=== PATIENT | male | born 1940 | race Caucasian/White ===

== ENCOUNTER → 2017-12-15 10:56 | Outpatient (CLI) | payer MEDICARE, OTHER, SELFPAY ==
--- NOTE | 2017-12-15 09:55 | DI.REPORT_ITS ---
SYMPTOM/DIAGNOSIS: CHEST PAIN R07.9, CHF I 50.9 PA AND LATERAL CHEST: Comparison is made with 20 Feb 2010. The heart is grossly enlarged , unchanged. Sternal wires are present. There is bilateral pleural thickening vs pleural fat. No infiltrate, effusion or pulmonary edema is seen. IMPRESSION: Cardiomegaly. No acute abnormality
== END ==
PROVIDERS: PCP Family Medicine
DX: I50.9 Heart failure, unspecified (principal); R07.9 Chest pain, unspecified; I51.7 Cardiomegaly
CPT/HCPCS: 71046

== ENCOUNTER 2018-09-25 02:04 | Outpatient (CLI) | payer MEDICARE, OTHER, SELFPAY ==
[2018-09-25 12:44] LABS: Hemoglobin A1C 6.6 % (4.5-6.2)
[2018-09-25 14:55] LABS: ALT 24 U/L (12-78); AST 21 U/L (15-37); Albumin 3.6 g/dL (3.4-5.0); Alkaline Phosphatase 57 U/L (46-116); Anion Gap 12.2 mmol/L (3-11); BUN 20 mg/dL (7-18); Bilirubin, Total 0.6 mg/dL (0.2-1.0); CO2 23.8 mmol/L (21.0-32.0); CREATININE 1.36 mg/dL (0.70-1.30); Calcium 8.8 mg/dL (8.5-10.1); Chloride 103 mmol/L (98-107); Estimated GFR 50.81 (mL/min/1.73m2); Glucose 136 mg/dL (70-100); Potassium 4.7 mmol/L (3.5-5.1); Sodium 139 mmol/L (136-145); TSH (W/Ref FT4) 4.64 uIU/mL (0.358-3.74); Total Protein 6.9 g/dL (6.4-8.2)
[2018-09-25 15:14] LABS: FREE T4 1.03 ng/dL (0.76-1.46)
== END 2018-09-25 02:24 ==
PROVIDERS: PCP Family Medicine; Visit Provider Family Medicine
DX: E03.9 Hypothyroidism, unspecified (principal); I10 Essential (primary) hypertension; I25.10 Atherosclerotic heart disease of native coronary artery without angina pectoris; I50.9 Heart failure, unspecified; R73.09 Other abnormal glucose
CPT/HCPCS: 36415; 80053; 83036; 84439; 84443

== ENCOUNTER 2018-10-06 09:41 | Emergency (ER) | payer MEDICARE, OTHER, SELFPAY ==
--- NOTE | 2018-10-06 09:45 | NUR.NOTE ---
at approximately 0800 pt developed 10/10 back spasm in the lumbar region. pt denies any other problems
[2018-10-06 09:48] VITALS: BP 145/71; PULSE 71; RESP 16; TEMP 36.8; O2SAT 94
--- NOTE | 2018-10-06 09:57 | NUR.NOTE ---
Nursing Note: pt given 100 fentinal and 1mg Ativan by EMS prior to arrival
--- NOTE | 2018-10-06 10:10 | W.ED.GENAD ---
Discharge Plan Disposition Patient Disposition: HOME Condition: Improving Discharge Details Chief Complaint: Nk/Back Pain Clinical Impression: Back spasm, Acute exacerbation of chronic low back pain Primary Care Provider: Jazzmine Rodas ED Provider: Devorah Mathis Home Meds and New Rx's Prescriptions: New prednisone 20 mg tablet See Rx Instructions .ROUTE .COMPLEX Qty: 12 RF: 0 methocarbamol 750 mg tablet 750 mg PO QID PRN (Reason: muscle spasm) Qty: 10 RF: 0 hydrocodone-acetaminophen 5-325 mg tablet 1 tab PO Q6H PRN (Reason: pain) Qty: 7 RF: 0 Continued citalopram 40 mg tablet 40 mg PO DAILY RF: 0 omeprazole 40 mg capsule,delayed release(DR/EC) 40 mg PO DAILY Qty: 1 RF: 0 sildenafil 100 mg tablet 100 mg PO PRN RF: 0 furosemide 20 mg tablet 20 mg PO DAILY RF: 0 rosuvastatin 20 mg tablet 20 mg PO DAILY RF: 0 potassium chloride 20 mEq tablet extended release 20 meq PO DAILY RF: 0 hydrocodone-acetaminophen 10-325 mg tablet 1 tab PO TID PRN (Reason: pain) Qty: 15 RF: 0 bupropion HCl [Wellbutrin XL] 150 mg tablet extended release 24 hr 150 mg PO QAM Qty: 90 RF: 3 levothyroxine 150 mcg capsule 150 mcg PO DAILY Qty: 90 RF: 3 losartan 50 MG tablet 50 mg PO DAILY Qty: 90 RF: 4 nitroglycerin 0.4 MG tablet, sublingual 0.4 mg Sublingual PRN RF: 0 metoprolol succinate 25 MG tablet extended release 24 hr 25 mg PO DAILY Qty: 90 RF: 4 albuterol sulfate [ProAir HFA] 90 mcg/actuation HFA aerosol inhaler 1 - 2 puff Inhalation BID Qty: 18 RF: 6 aspirin 325 MG tablet 325 mg PO DAILY RF: 0 Discharge Instructions Instructions: Low Back Strain (ED) Additional Instructions: Continue ibuprofen 600 mg every 6 hours as needed and directed for pain. Take the steroids until finished. Take the muscle relaxer methocarbamol as needed and directed for muscle spasm. Take the Vicodin as needed and directed for pain not relieved with the ibuprofen or muscle relaxer. Be cautious when taking additional Tylenol as the Vicodin contains Tylenol. Do not take more than 3000 mg of Tylenol daily. Follow-up with your primary care doctor this week for reevaluation. Return immediately to the emergency department if you develop any worsening or new concerning symptoms. Stand Alone Forms: Physical Therapy Referral Discharge Data Discharge Physician: Devorah Mathis Medical Decision Making 78-year-old male with a history of chronic back pain and lumbar spine discectomy who presents with lower back pain and back spasms for the past 3 weeks, worse this morning. Given fentanyl and Ativan per EMS with minimal relief. No cauda equina symptoms. Vitals within normal limits. Patient appears nontoxic. Denies complaint of tearing chest or abdominal pain so not consistent with dissection. He has a history of chronic back pain and states this feels similar to his chronic back spasms that this appears muscular skeletal. No focal deficits. Abdomen soft and nontender. No pulsatile masses. Neurovascularly intact. Patient noted to have smell strong of urine but states he got some urine on his underwear earlier but denies any incontinence - will send UA. Will give a dose of Toradol IM, Valium p.o., and prednisone p.o. and reassess. 1120 --patient feels much better and is requesting to go home. Urinalysis negative for infection. Patient able to ambulate in the room. Family at bedside and will be taking him home. We will send home with a prescription for steroids, methocarbamol. We will also send home with a small prescription for Vicodin. Instructed to continue to take Motrin as needed and directed. Instructed to be cautious of taking additional Tylenol while taking the vicodin. Patient also requested a referral for physical therapy. Instructed to follow-up with primary care doctor this week for reevaluation and to return here at any time if worse per Medical Records Medical records reviewed: Yes I reviewed the patient's medical records. Lab Data Lab results reviewed: Yes I reviewed the patient's lab results. Laboratory Tests Range/Units 10/06/18 10:52 Urine Color (Yellow) Yellow Urine Clarity Clear Urine pH (5-8) 6.0 Ur Specific [place] (1.005-1.025) 1.025 Urine Protein (Negative) mg/dL Negative Urine Ketones (Negative) mg/dL Negative Urine Blood (Negative) Negative Urine Nitrite (Negative) Negative Urine Bilirubin (Negative) Negative Urine Urobilinogen (Up TO 0.2) EU/dL 4.0 H Ur Leukocyte Esterase (Negative) Negative Urine Glucose (Negative) mg/dL Negative HPI General Mode of arrival: EMS. Date/Time Provider Initiated Documentation: 10/06/18 10:01. Limitations to Documentation: no limitations. Information obtained by: patient and family. HPI Narrative: Patient is a 78-year-old male with a history of chronic back pain and history of lumbar spine discectomy who presents with lower back pain for the past few weeks. Patient denies any known injury. He states today he was walking in his kitchen when he suddenly felt a spasm in his lower back. He admits to pain with ambulation and any movement and states he has intermittent spasms. He takes Vicodin at home chronically as needed for back pain. Last dose of Vicodin or ibuprofen yesterday. He has not taken any medications at this morning. He was given fentanyl and Ativan per EMS. Patient admits to some relief but states his back spasm is still 10/10 at times. He denies any known fever, nausea, vomiting, bowel or bladder incontinence, chest pain, shortness of breath, abdominal pain, leg pain or weakness. Related Data Home Medications Medication Instructions Recorded Confirmed losartan 50 mg PO DAILY #90 tab-cap 11/18/12 10/06/18 metoprolol succinate 25 mg PO DAILY #90 tab-cap 11/18/12 10/06/18 nitroglycerin 0.4 mg SUBLINGUAL PRN 11/18/12 10/06/18 aspirin 325 mg PO DAILY 10/31/15 10/06/18 citalopram 40 mg tablet 40 mg PO DAILY tab 12/31/17 10/06/18 furosemide 20 mg tablet 20 mg PO DAILY 12/31/17 10/06/18 hydrocodone 10 mg-acetaminophen 1 tab PO TID PRN #15 tab 12/31/17 10/06/18 325 mg tablet omeprazole 40 mg capsule,delayed 40 mg PO DAILY #1 cap 12/31/17 10/06/18 release potassium chloride ER 20 mEq 20 meq PO DAILY 12/31/17 10/06/18 tablet,extended release rosuvastatin 20 mg tablet 20 mg PO DAILY 12/31/17 10/06/18 sildenafil 100 mg tablet 100 mg PO PRN tab 12/31/17 10/06/18 albuterol sulfate HFA 90 1 - 2 puff INHALATION BID #18 gm 01/16/18 10/06/18 mcg/actuation aerosol inhaler bupropion HCl XL 150 mg 24 hr 150 mg PO QAM #90 tab 09/28/18 10/06/18 tablet, extended release levothyroxine 150 mcg capsule 150 mcg PO DAILY #90 cap 09/28/18 10/06/18 hydrocodone-acetaminophen 1 tab PO Q6H PRN #7 tab 10/06/18 methocarbamol 750 mg PO QID PRN #10 tab 10/06/18 prednisone See Rx Instructions .ROUTE 10/06/18 .COMPLEX #12 tab Previous Rx's Medication Instructions Recorded hydrocodone 10 mg-acetaminophen 1 tab PO TID PRN #15 tab 12/31/17 325 mg tablet omeprazole 40 mg capsule,delayed 40 mg PO DAILY #1 cap 12/31/17 release albuterol sulfate HFA 90 1 - 2 puff INHALATION BID #18 gm 01/16/18 mcg/actuation aerosol inhaler bupropion HCl XL 150 mg 24 hr 150 mg PO QAM #90 tab 09/28/18 tablet, extended release levothyroxine 150 mcg capsule 150 mcg PO DAILY #90 cap 09/28/18 hydrocodone-acetaminophen 1 tab PO Q6H PRN #7 tab 10/06/18 methocarbamol 750 mg PO QID PRN #10 tab 10/06/18 prednisone See Rx Instructions .ROUTE 10/06/18 .COMPLEX #12 tab Allergies Allergy/AdvReac Type Severity Reaction Status Date / Time Heparin Analogues Allergy Mild RASH, Verified 09/28/18 09:32 SWELLING, ITCH morphine AdvReac Severe Nausea Verified 09/28/18 09:32 codeine AdvReac Mild GI Verified 09/28/18 09:32 atorvastatin calcium AdvReac Pancreatiti Verified 09/28/18 09:32 [From Lipitor] s niacin AdvReac Pancreatiti Verified 09/28/18 09:32 [From Niaspan s Extended-Release] General Stated Complaint: Nk/Back Pain RIGOBERTO: 3 Review of Systems Review of Systems All systems reviewed & are unremarkable except as noted in HPI and below Constitutional Reports as per HPI, Denies chills and Denies fever(s) Eyes Denies blurry vision ENT Denies dizziness, Denies sore throat and Denies throat swelling Cardiovascular Denies chest pain and Denies dyspnea Respiratory Denies cough and Denies dyspnea Gastrointestinal Denies abdominal pain, Denies diarrhea and Denies vomiting Genitourinary Denies hematuria and Denies dysuria Musculoskeletal Reports back pain and Denies numbness Integumentary/Breasts Denies lesions and Denies rash Neurologic Denies dizziness, Denies focal weakness and Denies numbness Allergic/Immunologic Denies throat swelling [facility] Medical History Stress at home (Acute) Spinal stenosis (Chronic 10/04/13) Sleep apnea (Chronic) Memory changes (Acute 12/15/17) Hypothyroidism (acquired) (Chronic) Hypertension (Chronic) Hyperlipidemia (Acute) CHF (congestive heart failure) (Acute) ASHD (arteriosclerotic heart disease) (Acute) Surgical History foot surgery heart bypass spurs stint Family History Mother Stroke Father Heart disease Brother No problems noted. Social History Smoking/Tobacco Use Status: Former Tobacco Use Quit Date: 04/28/83 Alcohol Intake: never Drug use: Never Substance use type: does not use Frequency: 3-4 times per week Seatbelt use: always Do you feel safe at home: Yes Do you feel safe in your relationship?: Yes Exam Const General: cooperative and acute distress moderate (in pain with back spasms) HENMT Head: normal to inspection Face and sinus: normal facial exam Eyes General: appearance normal, both eyes and all related structures EOM: EOM intact bilaterally Neck Neck: normal visual inspection and No submandibular swelling Lymphatic: no lymphadenopathy noted Chest Chest: normal inspection of the chest and no tenderness Resp Effort & Inspection: normal respiratory effort and able to speak in complete sentences Auscultation: clear to auscultation bilaterally Cardio Rate: regular rate Rhythm: regular rhythm GI Inspection: normal to inspection Palpation: soft, not firm, not rigid and nontender Auscultation: normal bowel sounds Male General Exam: Yes normal external exam Penis: normal penis Scrotum: scrotum normal Testes: normal, no testicular swelling and no testicular tenderness Back/Spine/Pelvis Thoracic/Lumbar Spine: thoracic and lumbar spine normal to inspection, surgical scar(s) present (midline upper lumbar region, no infection/trauma), straight leg raise negative bilaterally, No paraspinal tenderness, No thoracic spinal tenderness and No lumbar spinal tenderness Pelvis: no pain with anterior-posterior compression Skin General skin exam: no rashes or lesions noted Neuro General: alert, awake and oriented x3 Cognition: normal cognition Speech: speech normal Motor: muscle tone normal throughout and strength 5/5 throughout Sensory Exam: no sensory deficits noted Other: B/L patella/achilles hypoactive. Negative babinski b/l. Extrem General: normal to inspection, full ROM, normal capillary refill, no calf tenderness bilaterally and no edema Psych Appearance: grossly normal Mental Status: mental status grossly normal Speech and Movement: speech and movement normal Affect: normal affect Course Vital Signs Temperature 98.2 F 10/06/18 09:48 Pulse 71 10/06/18 09:48 Respiratory Rate 16 10/06/18 09:48 Blood Pressure 145/71 H 10/06/18 09:48 Pulse Oximetry 94 L 10/06/18 09:48 Temperature 98.2 F 10/06/18 09:48 Temperature Source Skin 10/06/18 09:48 Pulse 71 10/06/18 09:48 Respiratory Rate 16 10/06/18 09:48 Respiratory Effort 10/06/18 09:54 Blood Pressure 145/71 H 10/06/18 09:48 Blood Pressure Position Sitting 10/06/18 09:48 Pulse Oximetry 94 L 10/06/18 09:48 Oxygen Delivery Method Room Air 10/06/18 09:48 Oxygen Flow Rate 0 10/06/18 09:48 Pain Level 10 10/06/18 09:48
[2018-10-06] MEDS: diazePAM 5 MG TAB PO (10:42)
[2018-10-06] MEDS: Ketorolac 30 MG/ML VIAL IVP (10:43)
[2018-10-06] MEDS: predniSONE 20 MG TAB 60 MG PO (10:46)
[2018-10-06 11:01] LABS: Bilirubin Negative (Negative); Blood Negative (Negative); Clarity Clear; Glucose Negative (Negative); Ketones Negative (Negative); Leukocyte Esterase Negative (Negative); Nitrite Negative (Negative); Specific Gravity 1.025 (1.005-1.025)
[2018-10-06 14:22] VITALS: BP 145/71; PULSE 71; RESP 16; TEMP 36.8; O2SAT 94
== END 2018-10-06 11:50 | disposition home or self-care (01) ==
PROVIDERS: Emergency Provider Physician Assistant; PCP Family Medicine
DX: M62.830 Muscle spasm of back (principal); M54.5 Low back pain; G89.29 Other chronic pain; I50.9 Heart failure, unspecified; Z95.1 Presence of aortocoronary bypass graft; I11.0 Hypertensive heart disease with heart failure
CPT/HCPCS: 96372; 99284; 81003; J7512

== ENCOUNTER → 2018-10-07 09:27 | Outpatient (BNVA) | payer MEDICARE, OTHER, SELFPAY | PROVIDERS: PCP Family Medicine; Referring Provider Family Medicine; Visit Provider Orthopaedic Surgery | DX: M67.441 Ganglion, right hand (principal); M79.641 Pain in right hand; I11.0 Hypertensive heart disease with heart failure; I50.9 Heart failure, unspecified | CPT/HCPCS: 99202; 99213 ==

== ENCOUNTER 2018-10-12 08:14 | Day surgery (SDC) | payer MEDICARE, OTHER, SELFPAY ==
[2018-10-12 08:34] VITALS: BP 160/99; PULSE 78; RESP 18; TEMP 36.6; O2SAT 94
[2018-10-12] MEDS: Lidocaine 2% Multi-Dose 50 ML VIAL (10:55)
--- NOTE | 2018-10-12 11:19 | W.PM.DSUDISC ---
Discharge Plan Disposition Patient Disposition: HOME Condition: Good Discharge Details Reason For Visit: Excision cyst R palm Attending Provider: Carl Gomez Primary Care Provider: Jazzmine Rodas Home Meds and New Rx's Prescriptions: New ibuprofen 800 mg tablet 800 mg PO QID PRN (Reason: pain) Qty: 20 RF: 0 Continued hydrocodone-acetaminophen 10-325 mg tablet 1 tab PO TID MDD 20mg PRN (Reason: pain) Qty: 15 RF: 0 methocarbamol 750 mg tablet 750 mg PO QID PRN (Reason: muscle spasm) Qty: 20 RF: 1 citalopram 40 mg tablet 40 mg PO DAILY RF: 0 omeprazole 40 mg capsule,delayed release(DR/EC) 40 mg PO DAILY Qty: 1 RF: 0 sildenafil 100 mg tablet 100 mg PO PRN RF: 0 furosemide 20 mg tablet 20 mg PO DAILY RF: 0 rosuvastatin 20 mg tablet 20 mg PO DAILY RF: 0 potassium chloride 20 mEq tablet extended release 20 meq PO DAILY RF: 0 bupropion HCl [Wellbutrin XL] 150 mg tablet extended release 24 hr 150 mg PO QAM Qty: 90 RF: 3 levothyroxine 150 mcg capsule 150 mcg PO DAILY Qty: 90 RF: 3 losartan 50 MG tablet 50 mg PO DAILY Qty: 90 RF: 4 nitroglycerin 0.4 MG tablet, sublingual 0.4 mg Sublingual PRN RF: 0 metoprolol succinate 25 MG tablet extended release 24 hr 25 mg PO DAILY Qty: 90 RF: 4 albuterol sulfate [ProAir HFA] 90 mcg/actuation HFA aerosol inhaler 1 - 2 puff Inhalation BID Qty: 18 RF: 6 aspirin 325 MG tablet 325 mg PO DAILY RF: 0 prednisone 20 mg tablet See Rx Instructions .ROUTE .COMPLEX Qty: 12 RF: 0 Discharge Instructions Additional Instructions: Bend and straighten fingers R hand 10 times/hour when awake to limit swelling and pain. Take ibuprofen 800 mg every 6 hours, if needed for pain. Keep dressings clean and dry for 48 hours. After 48 hours, may remove dressings, shower or bathe, and get incision wet. Leave incision uncovered when it is dry and sealed. Use R hand as much as your discomfort allows. Follow up with in 10-14 days. Activity:: Activity as Tolerated Remove Dressings/Wound Care:: 48 hours Shower/Bathe:: 48 hours Diet:: As Tolerated Discharge Orders Discharge Orders: Discharge Order (Routine); Ordered 10/12/18 Ordered By: Carl Gomez DS: Diagnosis Discharge Diagnosis (1) Cyst in hand: Status: Acute
--- NOTE | 2018-10-13 09:51 | ROE_ITS ---
DATE OF PROCEDURE: October 12, 2018 PREOPERATIVE DIAGNOSIS: Ganglion cyst, right hand, arising from the flexor sheath of the little fing er. POSTOPERATIVE DIAGNOSIS: Same. PROCEDURE: Excision of ganglion cyst arising from the flexor sheath of the right little finger. ANESTHESIA: Local infiltration, 2% Xylocaine solution and 0.5% Marcaine with an epinephrine solution . SURGEON: Carl Gomez M.D. INDICATIONS: This is a 78-year-old white male who has developed a painful ganglion cyst just radial to the proximal josiane of the flexor sheath of the right little finger in the palm. The cyst is tend er to the touch and causes him pain when he is gripping the steering wheel to drive. He wished to ugalde ve it excised. The risks and complications of the procedure were explained to the patient in detail preoperatively. PROCEDURE: The patient was taken to the Operating Room on 10/12/18. The right hand was prepped and d raped free in the usual sterile fashion. I then infiltrated over the proximal josiane and the cyst wi th 2% Xylocaine solution. After waiting two minutes, I make a transverse incision over the proximal josiane of the right little finger and over the palpable ganglion cyst. The incision was carried down through the subcu. The cyst was arising from the flexor sheath. The proximal josiane of the flexor sheath was then released and a portion of the josiane excised, along with the cyst. The wound margins were then infiltrated with 0.5% Marcaine with an epinephrine solution and hemostasis was obtained wi th simple direct pressure. The skin was approximated with three interrupted #4-0 Nylon sutures. The wound was dressed with Xeroform gauze, sterile gauze 4x4's, and wrapped with a 2-inch Cling bandage. The patient tolerated the procedure and was discharged to the recovery room in good condition. Blo od loss was minimal. The patient was discharged home from the Day Surgery Unit with instructions to bend and straighten th e little finger ten times an hour while awake to prevent swelling and pain. He will take Tylenol or ibuprofen for pain. He is to keep the dressings dry and intact for 48 hours. After 48 hours he can remove his dressings, shower or bathe and get his incision wet. He can leave the incision uncovered when it is dry and sealed. He may use his right hand as much as discomfort allows. He should follow -up with me in 10 to 14 days.
== END 2018-10-12 11:20 | disposition home or self-care (01) ==
PROVIDERS: PCP Family Medicine; Visit Provider Orthopaedic Surgery
PROC: (CPT 26160; principal; 2018-10-12 10:00)
DX: M67.441 Ganglion, right hand (principal)
CPT/HCPCS: 26160

== ENCOUNTER → 2018-10-22 09:21 | Outpatient (BNVA) | payer MEDICARE, OTHER, SELFPAY | PROVIDERS: PCP Family Medicine; Referring Provider Family Medicine; Visit Provider Orthopaedic Surgery | DX: Z47.89 Encounter for other orthopedic aftercare (principal); I11.0 Hypertensive heart disease with heart failure; I50.9 Heart failure, unspecified ==

== ENCOUNTER 2018-11-09 12:53 | Outpatient (CLI) | payer MEDICARE, OTHER, SELFPAY ==
[2018-11-09 14:56] LABS: TSH (W/Ref FT4) 3.26 uIU/mL (0.358-3.74)
== END 2018-11-09 13:13 ==
PROVIDERS: PCP Family Medicine
DX: E03.9 Hypothyroidism, unspecified (principal); G47.00 Insomnia, unspecified
CPT/HCPCS: 36415; 84443

== ENCOUNTER → 2018-11-10 09:52 | Outpatient (BNVA) | payer MEDICARE, OTHER, SELFPAY | PROVIDERS: PCP Family Medicine; Referring Provider Family Medicine; Visit Provider Orthopaedic Surgery | DX: Z47.89 Encounter for other orthopedic aftercare (principal); M67.441 Ganglion, right hand; I11.0 Hypertensive heart disease with heart failure; I50.9 Heart failure, unspecified ==

== ENCOUNTER 2018-12-01 14:20 | Emergency (ER) | payer MEDICARE, OTHER, SELFPAY ==
[2018-12-01 14:36] VITALS: BP 146/71; PULSE 70; RESP 16; TEMP 36.7; O2SAT 96
--- NOTE | 2018-12-01 14:59 | ED.GENADUL_ITS ---
Discharge Plan Disposition Patient Disposition: HOME Condition: Stable Discharge Details Chief Complaint: HeadInjury Clinical Impression: Head injury Primary Care Provider: Jazzmine Rodas ED Provider: Julianna Armijo Home Meds and New Rx's Prescriptions: Continued hydrocodone-acetaminophen 10-325 mg tablet 1 tab PO TID MDD 20mg PRN (Reason: pain) Qty: 15 RF: 0 rosuvastatin 20 mg tablet 20 mg PO DAILY RF: 0 potassium chloride 20 mEq tablet extended release 20 meq PO DAILY RF: 0 fenofibrate micronized 134 mg capsule 134 mg PO DAILY RF: 0 omeprazole 40 mg capsule,delayed release(DR/EC) 40 mg PO DAILY Qty: 90 RF: 4 citalopram 40 mg tablet 40 mg PO DAILY Qty: 90 RF: 4 furosemide 20 mg tablet 20 mg PO DAILY Qty: 90 RF: 4 cyclobenzaprine 10 mg tablet 10 mg PO Q12H PRN (Reason: muscle spasm) Qty: 30 RF: 4 levothyroxine 150 mcg capsule 150 mcg PO DAILY Qty: 90 RF: 3 bupropion HCl 300 mg tablet extended release 24 hr 300 mg PO QAM Qty: 90 RF: 0 losartan 50 MG tablet 50 mg PO DAILY Qty: 90 RF: 4 nitroglycerin 0.4 MG tablet, sublingual 0.4 mg Sublingual PRN RF: 0 metoprolol succinate 25 MG tablet extended release 24 hr 25 mg PO DAILY Qty: 90 RF: 4 albuterol sulfate [ProAir HFA] 90 mcg/actuation HFA aerosol inhaler 1 - 2 puff Inhalation BID Qty: 18 RF: 6 aspirin 325 MG tablet 325 mg PO DAILY RF: 0 ibuprofen 800 mg tablet 800 mg PO QID PRN (Reason: pain) Qty: 20 RF: 0 Discharge Instructions Instructions: Concussion (ED), Head Injury (ED) Additional Instructions: Please return immediately to the emergency department if you develop any new or worsening symptoms or if you become otherwise concerned. It is extremely important that you call as soon as possible to make an appointment to be seen in follow-up for this visit by your primary care doctor. Referrals: Jazzmine Rodas MD, [place] [Primary Care Provider] - Discharge Data Discharge Date/Time-TO BE ENTERED AT DEPARTURE: 12/01/18 17:35 Medical Decision Making Nitesh Mg is a 78-year-old man with a history of coronary artery disease, hyperlipidemia, hypertension, hypothyroidism who presented to the emergency department with head injury after falling out of bed last night at 1:30 in the morning. On exam patient is very well and nontoxic appearing. There is mild ecchymosis to the left parietal scalp without crepitus or deformity, no skin wound. Neurologic exam is nonfocal. Neck is nontender with full range of motion. Concern for possible intracranial pathology. Exam/history is not con sistent with significant trauma to the spine, thorax, abdomen, or extremities. Plan for CT head. CT head negative. I had a lengthy discussion with patient regarding concussion precautions, return to emergency department precautions, home care, importance of outpatient follow-up with his PCP. Patient verbalized understanding the plan was amenable. He was discharged home with clear plan for outpatient follow-up. All questions were answered. Medical Records Medical records reviewed: Yes I reviewed the patient's medical records. Imaging Data Radiologic Study: Radiologist's impression: EXAM: CT Head Without Contrast EXAM DATE/TIME: 12/01/2018 3:54 PM CLINICAL HISTORY: 78 years old, male; Pain; Other: Trauma, fall headache TECHNIQUE: Imaging protocol: Computed tomography images of the head without contrast. Coronal and sagittal reformatted images were created and reviewed. Radiation optimization: All CT scans at this facility use at least one of these dose optimization techniques: automated exposure control; mA and/or kV adjustment per patient size (includes targeted exams where dose is matched to clinical indication); or iterative reconstruction. COMPARISON: No relevant prior studies available. FINDINGS: Brain: Global cerebral atrophy is consistent with patient's age. Decreased attenuation within the white matter tracts of both cerebral hemispheres is nonspecific but typically seen with small vessel disease/chronic white matter ischemic changes of aging. No intracranial hemorrhage or mass effect. Physiologic calcifications within the basal ganglia. Ventricles: Unremarkable. No ventriculomegaly. Bones/joints: Unremarkable. No acute fracture. Sinuses: Opacification of the left maxillary sinus with bone thickening consistent with chronic sinus inflammatory disease. Mastoid air cells: Visualized mastoid air cells are well aerated. No mastoid effusion. Soft tissues: Unremarkable. Vasculature: Atherosclerosis of the cavernous carotid and vertebral arteries. IMPRESSION: No acute abnormality. HPI General Mode of arrival: ambulatory . Date/Time Provider Initiated Documentation: 12/01/18 14:59 . Limitations to Documentation: no limitations . Information obtained by: patient, RN notes reviewed and old records reviewed . HPI Narrative: Nitesh Mg is a 78 y/o man with history of hypothyroidism, hypertension, hyperlipidemia, coronary artery disease who presents the emergency department with head injury. Patient reports that approximately 130 this morning he rolled out of bed, and hit his head on a door of his nightstand that was open. Patient reports that he suspect he rolled out of bed because he just recently began sleeping on a new mattress. Patient reports that he went back to sleep after the fall. He woke up this morning his usual, but has had headache and mild nausea. Patient reports that headache is mild and not the worst of his life. Patient reports that he feels fine, but my family made me come in to see if I have a concussion. He denies any pain other than headache at the site of the impact which is the right parietal area, denies vomiting, denies numbness/tingling, denies weakness the extremities, denies any other injury. Patient reports that he went to bed feeling very well in his usual state of health last night. He reports that he has been going about his daily activities today as usual. No recent illness, has been eating and drinking as usual including today. No recent travel. Patient reports that he takes aspirin daily no other blood thinners. Related Data Home Medications Medication Instructions Recorded Confirmed losartan 50 mg PO DAILY #90 tab-cap 11/18/12 12/08/18 metoprolol succinate 25 mg PO DAILY #90 tab-cap 11/18/12 12/08/18 nitroglycerin 0.4 mg SUBLINGUAL PRN 11/18/12 12/08/18 aspirin 325 mg PO DAILY 10/31/15 12/08/18 potassium chloride 20 mEq 20 meq PO DAILY 12/31/17 12/08/18 tablet,extended release rosuvastatin 20 mg tablet 20 mg PO DAILY 12/31/17 12/08/18 albuterol sulfate 90 mcg/actuation 1 - 2 puff INHALATION BID #18 gm 01/16/18 12/08/18 aerosol inhaler levothyroxine 150 mcg capsule 150 mcg PO DAILY #90 cap 09/28/18 12/08/18 hydrocodone 10 mg-acetaminophen 1 tab PO TID PRN #15 tab MDD 20mg 10/08/18 12/08/18 325 mg tablet ibuprofen 800 mg PO QID PRN #20 tab 10/12/18 12/08/18 citalopram 40 mg tablet 40 mg PO DAILY #90 tab 11/03/18 12/08/18 cyclobenzaprine 10 mg tablet 10 mg PO Q12H PRN #30 tab 11/03/18 12/08/18 fenofibrate micronized 134 mg 134 mg PO DAILY 11/03/18 12/08/18 capsule furosemide 20 mg tablet 20 mg PO DAILY #90 tab 11/03/18 12/08/18 omeprazole 40 mg capsule,delayed 40 mg PO DAILY #90 cap 11/03/18 12/08/18 release bupropion HCl 300 mg 24 hr tablet, 300 mg PO QAM #90 tab 11/23/18 12/08/18 extended release Previous Rx's Medication Instructions Recorded albuterol sulfate 90 mcg/actuation 1 - 2 puff INHALATION BID #18 gm 01/16/18 aerosol inhaler levothyroxine 150 mcg capsule 150 mcg PO DAILY #90 cap 09/28/18 hydrocodone 10 mg-acetaminophen 1 tab PO TID PRN #15 tab MDD 20mg 10/08/18 325 mg tablet ibuprofen 800 mg PO QID PRN #20 tab 10/12/18 citalopram 40 mg tablet 40 mg PO DAILY #90 tab 11/03/18 cyclobenzaprine 10 mg tablet 10 mg PO Q12H PRN #30 tab 11/03/18 furosemide 20 mg tablet 20 mg PO DAILY #90 tab 11/03/18 omeprazole 40 mg capsule,delayed 40 mg PO DAILY #90 cap 11/03/18 release bupropion HCl 300 mg 24 hr tablet, 300 mg PO QAM #90 tab 11/23/18 extended release Allergies Allergy/AdvReac Type Severity Reaction Status Date / Time Heparin Analogues Allergy Mild RASH, Verified 12/08/18 10:04 SWELLING, ITCH morphine AdvReac Severe Nausea Verified 12/08/18 10:04 codeine AdvReac Mild GI Verified 12/08/18 10:04 atorvastatin calcium AdvReac Pancreatiti Verified 12/08/18 10:04 [From Lipitor] s niacin AdvReac Pancreatiti Verified 12/08/18 10:04 [From Niaspan s Extended-Release] General Stated Complaint: HeadInjury RIGOBERTO: 3 Review of Systems Review of Systems Constitutional: denies fevers Eyes: denies eye pain ENT: denies facial pain, dental pain, sore throat Cardiovascular: denies chest pain Respiratory: denies SOB, cough GI: denies abdominal pain, vomiting, diarrhea, reports nausea : denies flank pain MSK: denies back pain, neck pain, arthralgias, myalgias Skin: denies rash Neuro: denies numbness, weakness, reports headache PFSH Medical History ASHD (arteriosclerotic heart disease) (Acute) CHF (congestive heart failure) (Acute) Hyperlipidemia (Acute) Hypertension (Chronic) Hypothyroidism (acquired) (Chronic) Memory changes (Acute 12/15/17) Sleep apnea (Chronic) Spinal stenosis (Chronic 10/04/13) Stress at home (Acute) Surgical History (Updated 12/08/18 @ 10:33 by ROMY Barker) Cyst in hand (Acute) foot surgery heart bypass spurs stint Social History Smoking/Tobacco Use Status: Former Tobacco Use Quit Date: 04/28/83 Tobacco: How many years used: 20 Alcohol Intake: current Alcohol Intake frequency: holidays/special occasions only Drug use: Never Substance use type: does not use Caregiver/Support person: No Household members: spouse Housing: apartment Communication Needs: Hard of Hearing Do you need help understanding health information?: Rarely Pets and animals: Yes Pets and animals: dog(s) Sexually active: No Do you think of yourself as: straight/heterosexual Current gender identity: decline to answer What is your relationship status?: How often do you talk on the phone with friends or family?: three or more times per week How often do you get together with friends or relatives?: once per week How often do you attend mu-ism or shinto services?: decline to answer Do you belong to any clubs or organized social groups?: no Panel score (0-1 are the most socially isolated patients): 2 What type of physical activity do you participate in: none Frequency: 3-4 times per week Nora/Amish: No preference Special nora needs: No Seatbelt use: always Drive intox or ride w/intox driver education instructor: No Do you feel safe at home: Yes Do you feel safe in your relationship?: Yes Exam Narrative Exam Narrative: Constitutional: well and [id number], pleasant, conversing normally HENT: head normocephalic, right parietal ecchymoses without skin wound/deformity/crepitus, mucous membranes moist, normal inspection of the face Eyes: conjunctiva normal, sclera normal, pupils 3mm b/l ERRLA, extraocular movements intact without nystagmus Neck: no stridor, normal painless ROM, trachea midline, cervical spine nontender to palpation Resp: normal work of breathing, LCTAB Cardio: normal rate, normal rhythm, no murmur appreciated Back: normal inspection, no rash Skin: warm, dry, normal color, no rash Neuro: alert, not altered, cranial nerves II through XII intact, motor 5 out of 5 throughout, moving all extremities equally, normal tone Ext: no edema Psych: normal mood, normal affect, normal behavior Course Vital Signs Temperature 36.7 C 12/01/18 14:36 Pulse 70 12/01/18 14:36 Respiratory Rate 16 12/01/18 14:36 Blood Pressure 146/71 H 12/01/18 14:36 Pulse Oximetry 96 12/01/18 14:36 Temperature 36.7 C 12/01/18 14:36 Temperature Source Skin 12/01/18 14:36 Pulse 70 12/01/18 14:36 Respiratory Rate 16 12/01/18 14:36 Respiratory Effort Non-Labored 12/01/18 14:48 Respiratory Depth Normal 12/01/18 14:48 Respiratory Pattern Normal 12/01/18 14:48 Blood Pressure 146/71 H 12/01/18 14:36 Blood Pressure Position Sitting 12/01/18 14:36 Pulse Oximetry 96 12/01/18 14:36 Oxygen Delivery Method Room Air 12/01/18 14:36 Oxygen Flow Rate 0 12/01/18 14:36 Pain Level 3 12/01/18 14:36
--- NOTE | 2018-12-01 15:54 | DI.CT_ITS ---
SYMPTOM/DIAGNOSIS: TRAUMA, HEADACHE NONCONTRAST HEAD CT: There is age related atrophy and mild white matter changes of small vessel disease. The ventricles are normal in size. No fracture, acute hemorrhage, infarct or mass is seen. There is mild ethmoid sinus opacification. The left maxillary sinus is somewhat diminutive and nearly completely opacified. The mastoid air cells appear clear. IMPRESSION: Age related changes. No acute abnormality.
--- NOTE | 2018-12-01 16:41 | DI.VRAD_ITS ---
EXAM: CT Head Without Contrast EXAM DATE/TIME: 12/01/2018 3:54 PM CLINICAL HISTORY: 78 years old, male; Pain; Other: Trauma, fall headache TECHNIQUE: Imaging protocol: Computed tomography images of the head without contrast. Coronal and sagittal reformatted images were created and reviewed. Radiation optimization: All CT scans at this facility use at least one of these dose optimization techniques: automated exposure control; mA and/or kV adjustment per patient size (includes targeted exams where dose is matched to clinical indication); or iterative reconstruction. COMPARISON: No relevant prior studies available. FINDINGS: Brain: Global cerebral atrophy is consistent with patient's age. Decreased attenuation within the white matter tracts of both cerebral hemispheres is nonspecific but typically seen with small vessel disease/chronic white matter ischemic changes of aging. No intracranial hemorrhage or mass effect. Physiologic calcifications within the basal ganglia. Ventricles: Unremarkable. No ventriculomegaly. Bones/joints: Unremarkable. No acute fracture. Sinuses: Opacification of the left maxillary sinus with bone thickening consistent with chronic sinus inflammatory disease. Mastoid air cells: Visualized mastoid air cells are well aerated. No mastoid effusion. Soft tissues: Unremarkable. Vasculature: Atherosclerosis of the cavernous carotid and vertebral arteries. IMPRESSION: No acute abnormality. Dictated and Authenticated by: Joseph Locke MD. Ordering:ABRAN Levine MD
[2018-12-01 17:37] VITALS: BP 130/77; PULSE 70; RESP 15; O2SAT 95
== END 2018-12-01 17:35 | disposition home or self-care (01) ==
PROVIDERS: Emergency Provider Student in an Organized Health Care Education/Training Program; PCP Family Medicine
DX: S09.90XA Unspecified injury of head, initial encounter (principal); W06.XXXA Fall from bed, initial encounter; W22.03XA Walked into furniture, initial encounter; R11.0 Nausea; I10 Essential (primary) hypertension
CPT/HCPCS: 99284; 70450

== ENCOUNTER → 2018-12-08 09:58 | Outpatient (BNVA) | payer MEDICARE, OTHER, SELFPAY | PROVIDERS: PCP Family Medicine; Referring Provider Family Medicine; Visit Provider Orthopaedic Surgery | DX: Z47.89 Encounter for other orthopedic aftercare; M25.541 Pain in joints of right hand; I11.0 Hypertensive heart disease with heart failure; I50.9 Heart failure, unspecified ==

== ENCOUNTER 2019-01-03 08:53 | Emergency (ER) | payer MEDICARE, OTHER, SELFPAY ==
[2019-01-03 09:00] VITALS: BP 136/104; PULSE 67; RESP 18; TEMP 36.3; O2SAT 96
--- NOTE | 2019-01-03 09:00 | W.ED.GENAD ---
Discharge Plan Disposition Patient Disposition: HOME Discharge Details Chief Complaint: Nk/Back Pain Clinical Impression: Back pain Primary Care Provider: Jazzmine Rodas ED Provider: [facility] Home Meds and New Rx's Prescriptions: New methocarbamol 500 mg tablet 1,000 mg PO QID Qty: 14 RF: 0 Continued hydrocodone-acetaminophen 10-325 mg tablet 1 tab PO TID MDD 20mg PRN (Reason: pain) Qty: 15 RF: 0 rosuvastatin 20 mg tablet 20 mg PO DAILY RF: 0 potassium chloride 20 mEq tablet extended release 20 meq PO DAILY RF: 0 fenofibrate micronized 134 mg capsule 134 mg PO DAILY RF: 0 omeprazole 40 mg capsule,delayed release(DR/EC) 40 mg PO DAILY Qty: 90 RF: 4 citalopram 40 mg tablet 40 mg PO DAILY Qty: 90 RF: 4 cyclobenzaprine 10 mg tablet 10 mg PO Q12H PRN (Reason: muscle spasm) Qty: 30 RF: 4 bupropion HCl 300 mg tablet extended release 24 hr 300 mg PO QAM Qty: 90 RF: 0 losartan 50 MG tablet 50 mg PO DAILY Qty: 90 RF: 4 nitroglycerin 0.4 MG tablet, sublingual 0.4 mg Sublingual PRN RF: 0 metoprolol succinate 25 MG tablet extended release 24 hr 25 mg PO DAILY Qty: 90 RF: 4 albuterol sulfate [ProAir HFA] 90 mcg/actuation HFA aerosol inhaler 1 - 2 puff Inhalation BID Qty: 18 RF: 6 furosemide 20 mg tablet 20 mg PO DAILY Qty: 90 RF: 4 levothyroxine 150 mcg capsule 150 mcg PO DAILY Qty: 90 RF: 3 aspirin 325 MG tablet 325 mg PO DAILY RF: 0 ibuprofen 800 mg tablet 800 mg PO QID PRN (Reason: pain) Qty: 20 RF: 0 Discharge Instructions Instructions: Back Pain (ED) Additional Instructions: You were seen in the emergency department today for evaluation of back pain. You should take 650 mg of acetaminophen (Tylenol) every 6 hours in addition to 400 mg of ibuprofen every 6 hours. You can use the muscle relaxer every 6 hours as needed. Follow-up as scheduled with your primary care provider. Return to the emergency department immediately if you develop any fevers, weakness, numbness, or for any other concerning or worsening symptoms at all. Referrals: Jazzmine Rodas MD, [place] [Primary Care Provider] - Medical Decision Making This patient is a 78-year-old male who presents to the emergency department with chief complaint of low back pain. He denies any evidence of cauda equina such as urinary retention, leaking of urine or stool, numbness. No indication at this time for imaging of the spine. His strength is normal. This is most likely musculoskeletal low back pain. He feels much better after ketorolac, acetaminophen and methocarbamol. He will be discharged home. He will be provided return precautions and discharge instructions and he and his family agree with the outpatient treatment plan. HPI My back went out. This patient is a 78-year-old male who complains of lower back pain. It is a sharp pain. It radiates down both legs. No numbness, weakness, inability to urinate, leaking of urine or stool, and fever. He states it is similar to when he has had back pain in this area previously. Moving around makes it worse. Nothing has made it better. He did not take anything for pain. He came in today because the pain just became more severe. Symptoms have been constant for the past day. General Date/Time Provider Initiated Documentation: 01/03/19 09:00. Related Data Home Medications Medication Instructions Recorded Confirmed losartan 50 mg PO DAILY #90 tab-cap 11/18/12 01/03/19 metoprolol succinate 25 mg PO DAILY #90 tab-cap 11/18/12 01/03/19 nitroglycerin 0.4 mg SUBLINGUAL PRN 11/18/12 01/03/19 aspirin 325 mg PO DAILY 10/31/15 01/03/19 potassium chloride 20 mEq 20 meq PO DAILY 12/31/17 01/03/19 tablet,extended release rosuvastatin 20 mg tablet 20 mg PO DAILY 12/31/17 01/03/19 albuterol sulfate 90 mcg/actuation 1 - 2 puff INHALATION BID #18 gm 01/16/18 01/03/19 aerosol inhaler hydrocodone 10 mg-acetaminophen 1 tab PO TID PRN #15 tab MDD 20mg 10/08/18 01/03/19 325 mg tablet ibuprofen 800 mg PO QID PRN #20 tab 10/12/18 01/03/19 citalopram 40 mg tablet 40 mg PO DAILY #90 tab 11/03/18 01/03/19 cyclobenzaprine 10 mg tablet 10 mg PO Q12H PRN #30 tab 11/03/18 01/03/19 fenofibrate micronized 134 mg 134 mg PO DAILY 11/03/18 01/03/19 capsule omeprazole 40 mg capsule,delayed 40 mg PO DAILY #90 cap 11/03/18 01/03/19 release bupropion HCl 300 mg 24 hr tablet, 300 mg PO QAM #90 tab 11/23/18 01/03/19 extended release furosemide 20 mg tablet 20 mg PO DAILY #90 tab 12/15/18 01/03/19 levothyroxine 150 mcg capsule 150 mcg PO DAILY #90 cap 12/15/18 01/03/19 methocarbamol 1,000 mg PO QID #14 tab 01/03/19 Previous Rx's Medication Instructions Recorded albuterol sulfate 90 mcg/actuation 1 - 2 puff INHALATION BID #18 gm 01/16/18 aerosol inhaler hydrocodone 10 mg-acetaminophen 1 tab PO TID PRN #15 tab MDD 20mg 10/08/18 325 mg tablet ibuprofen 800 mg PO QID PRN #20 tab 10/12/18 citalopram 40 mg tablet 40 mg PO DAILY #90 tab 11/03/18 cyclobenzaprine 10 mg tablet 10 mg PO Q12H PRN #30 tab 11/03/18 omeprazole 40 mg capsule,delayed 40 mg PO DAILY #90 cap 11/03/18 release bupropion HCl 300 mg 24 hr tablet, 300 mg PO QAM #90 tab 11/23/18 extended release furosemide 20 mg tablet 20 mg PO DAILY #90 tab 12/15/18 levothyroxine 150 mcg capsule 150 mcg PO DAILY #90 cap 12/15/18 methocarbamol 1,000 mg PO QID #14 tab 01/03/19 Allergies Allergy/AdvReac Type Severity Reaction Status Date / Time Heparin Analogues Allergy Mild RASH, Verified 01/03/19 09:05 SWELLING, ITCH morphine AdvReac Severe Nausea Verified 01/03/19 09:05 codeine AdvReac Mild GI Verified 01/03/19 09:05 atorvastatin calcium AdvReac Pancreatiti Verified 01/03/19 09:05 [From Lipitor] s niacin AdvReac Pancreatiti Verified 01/03/19 09:05 [From Niaspan s Extended-Release] General RIGOBERTO: 3 Review of Systems Review of Systems Gen: no fevers. Card: no chest pain. Resp: No cough, difficulty breathing. Abd: no vomiting, abd pain. Back: see HPI. The rest of the 10 point review of systems is negative except as described in the HPI and above in the ROS. PFSH Medical History ASHD (arteriosclerotic heart disease) (Acute) CABG and multiple stents CHF (congestive heart failure) (Acute) Hyperlipidemia (Acute) Hypertension (Chronic) Hypothyroidism (acquired) (Chronic) Memory changes (Acute 12/15/17) Sleep apnea (Chronic) Spinal stenosis (Chronic 10/04/13) multiple procedures: epidural; operations Stress at home (Acute) -early dementia, daughter-breast cancer. Surgical History Cyst in hand (Acute) Status post excision on 10/12/2018 on palmar aspect of right hand. foot surgery right heart bypass x 3 spurs left great toe spurs/osteoarthritis stint x 1 Family History Mother , 87 Stroke Father , 48 Heart disease Hyperlipidemia Brother No problems noted. Maternal Grandfather No problems noted. Paternal Grandfather No problems noted. Maternal Grandmother , 98 No problems noted. Paternal Grandmother , 71 Heart disease Daughter , 53 No problems noted. Social History Smoking/Tobacco Use Status: Former Tobacco Use Quit Date: 04/28/83 Tobacco: How many years used: 20 Alcohol Intake: current Alcohol Intake frequency: holidays/special occasions only Drug use: Never Substance use type: does not use Caregiver/Support person: No Household members: spouse Housing: apartment Communication Needs: Hard of Hearing Do you need help understanding health information?: Rarely Pets and animals: Yes Pets and animals: dog(s) Sexually active: No Do you think of yourself as: straight/heterosexual Current gender identity: decline to answer What is your relationship status?: How often do you talk on the phone with friends or family?: three or more times per week How often do you get together with friends or relatives?: once per week How often do you attend adventism or pentecostal services?: decline to answer Do you belong to any clubs or organized social groups?: no Panel score (0-1 are the most socially isolated patients): 2 What type of physical activity do you participate in: none Frequency: 3-4 times per week Nora/Congregation: No preference Special nora needs: No Seatbelt use: always Drive intox or ride w/intox drivers' cash clerk: No Do you feel safe at home: Yes Do you feel safe in your relationship?: Yes Exam Narrative Exam Narrative: Gen: no acute distress, alert. Lung: Clear to auscultation bilaterally, no respiratory distress. Card: RRR, normal S1, S2, no M/R/G. Abd: soft, non-tender, no hepatosplenomegaly. Upper extremity: no evidence of trauma. Lower extremity: no edema. Neuro: speech normal, no gross motor deficits. normal sensation throughout lower extremities. 1+ patellar reflexes bilaterally and 1+ achilles reflexes bilaterally. Back: tenderness to the lumbar praspinal area. Psych: alert and oriented to person, place time, normal affect. Skin: warm, intact.
[2019-01-03] MEDS: Ketorolac 30 MG/ML VIAL IM (09:19)
[2019-01-03] MEDS: Acetaminophen 500 MG TAB 1000 MG PO (09:19)
[2019-01-03] MEDS: Methocarbamol 500 MG TAB 1000 MG PO (09:19)
[2019-01-03] MEDS: Lidocaine 5% Patch 1 PATCH TP (09:27)
[2019-01-03 10:10] VITALS: BP 125/77; PULSE 66; RESP 18; TEMP 37; O2SAT 95
== END 2019-01-03 10:15 | disposition home or self-care (01) ==
PROVIDERS: Emergency Provider Emergency Medicine; PCP Family Medicine
DX: M54.5 Low back pain (principal); M48.00 Spinal stenosis, site unspecified; I10 Essential (primary) hypertension
CPT/HCPCS: 96372; 99284; 99283; J1885

== ENCOUNTER 2019-01-18 11:14 | Outpatient (CLI) | payer MEDICARE, OTHER, SELFPAY ==
[2019-01-18 13:37] LABS: TSH (W/Ref FT4) 6.74 uIU/mL (0.36-3.74)
[2019-01-18 14:03] LABS: FREE T4 0.73 ng/dL (0.76-1.46)
== END 2019-01-18 11:34 ==
PROVIDERS: PCP Family Medicine
DX: E03.9 Hypothyroidism, unspecified (principal); G47.00 Insomnia, unspecified; I50.9 Heart failure, unspecified
CPT/HCPCS: 36415; 84439; 84443

== ENCOUNTER 2019-01-20 11:56 | Emergency (ER) | payer MEDICARE, OTHER, SELFPAY ==
[2019-01-20] VITALS (7 sets, daily range): BP systolic 151–165; BP diastolic 67–89; PULSE 60–88; RESP 16–17; TEMP 37; O2SAT 94–95
--- NOTE | 2019-01-20 12:14 | DI.RAD_ITS ---
EXAM: XR CHEST 2V PA AND LATERAL INDICATION: pain s/p fall. COMPARISON: CHEST 2 VIEWS PA,LAT from 12/15/2017 TECHNIQUE: 2D digital imaging was performed. FINDINGS: The heart is enlarged no pulmonary infiltrate or pleural effusion is seen. The hilar structures, tra cheal air column and mediastinum are intact. IMPRESSION: No evidence of acute cardiopulmonary disease.
--- NOTE | 2019-01-20 12:14 | DI.CT_ITS ---
EXAM: CT HEAD WO CLINICAL HISTORY: Headaches, pain s/p fall. TECHNIQUE: The examination was carried out without contrast enhancement. COMPARISON: CT HEAD WO from 12/01/2018 FINDINGS: Atrophic changes consistent with age are demonstrated. There are faint regions of diminished absorpt ion in the frontoparietal white matter consistent with small vessel disease. There is no evidence of a hemorrhage. There is no evidence of a mass. The robbins-white matter differentiation is maintained. The ventricles are unremarkable. There is no evidence of a skull fracture. The paranasal sinuses ar e intact. There is no evidence of a mastoid effusion. IMPRESSION: No evidence of an acute intracranial abnormality.
--- NOTE | 2019-01-20 12:16 | W.ED.GENAD ---
Discharge Plan Disposition Patient Disposition: HOME Condition: Stable Discharge Details Chief Complaint: Headache Clinical Impression: Headache, Falls Primary Care Provider: Jazzmine Rodas ED Provider: Jose Obregon [place] Meds and New Rx's Prescriptions: Continued hydrocodone-acetaminophen 10-325 mg tablet 1 tab PO TID MDD 20mg PRN (Reason: pain) Qty: 15 RF: 0 rosuvastatin 20 mg tablet 20 mg PO DAILY RF: 0 potassium chloride 20 mEq tablet extended release See Rx Instructions .ROUTE .COMPLEX RF: 0 fenofibrate micronized 134 mg capsule 134 mg PO DAILY RF: 0 omeprazole 40 mg capsule,delayed release(DR/EC) 40 mg PO DAILY Qty: 90 RF: 4 cyclobenzaprine 10 mg tablet 10 mg PO Q12H PRN (Reason: muscle spasm) Qty: 30 RF: 4 bupropion HCl 300 mg tablet extended release 24 hr 300 mg PO QAM Qty: 90 RF: 0 losartan 50 MG tablet 50 mg PO DAILY Qty: 90 RF: 4 nitroglycerin 0.4 MG tablet, sublingual 0.4 mg Sublingual PRN RF: 0 metoprolol succinate 25 MG tablet extended release 24 hr 25 mg PO DAILY Qty: 90 RF: 4 albuterol sulfate [ProAir HFA] 90 mcg/actuation HFA aerosol inhaler 1 - 2 puff Inhalation BID Qty: 18 RF: 6 furosemide 20 mg tablet 20 mg PO DAILY Qty: 90 RF: 4 levothyroxine 150 mcg capsule 150 mcg PO DAILY Qty: 90 RF: 3 gabapentin 300 mg capsule 300 mg PO QHS Qty: 90 RF: 1 citalopram 40 mg tablet 40 mg PO DAILY Qty: 90 RF: 4 aspirin 325 MG tablet 325 mg PO DAILY RF: 0 ibuprofen 800 mg tablet 800 mg PO QID PRN (Reason: pain) Qty: 20 RF: 0 acetaminophen [Acetaminophen Extra Strength] 500 mg Tablet 1,000 mg PO BID RF: 0 Discharge Instructions Instructions: General Headache (ED) Additional Instructions: follow up with your primary care provider's office as scheduled on Friday if you have fevers, severe worsening pain or persistent vomit return to the emergency department Medical Decision Making 79 yo male with hx of copd, hld, htn, who comes in with constant mild left sided headaches for 3 weeks.He states he gets vivid realistic dreams and causes him to fall out of bed and has hit his head 3-4 times from this over the past few weeks. Today he was getting out of a chair and tripped over the foot rest. Denies loc and no chest pain or sob. He has no temporal artery tenderness, NIH of 0, without deficits on eaxm speaking in no distress. Denies worst headache of his life so do not feel workup for sah indicated, no fevers or meningismus so doubt adult basic education teacher infection. Family is concerned his memory hasn't been that good recently as well and intermittent confusion. will obtian ct head to eval for sdh and also eval for electrolyte abnotmalities and monitor imaging and labs unremarkable, still has no temporal artery pain so do not feel he requires steroids. Still only has mild pain. Has appt Friday with pcp's office, return precautions given Differential Diagnosis Differential Diagnosis: tension headache, sdh, temporal arteritis Medical Records Medical records reviewed: Yes I reviewed the patient's medical records. Imaging Data Radiologic Study: Attestation: I personally reviewed and interpreted this imaging study as follows: Imaging: X-Ray Radiologist's impression: no acute findings Radiologic Study #2: Attestation: I personally reviewed and interpreted this imaging study as follows: Imaging: CT Scan Radiologist's impression: no acute findings per dr. pittman Lab Data Lab results reviewed: Yes I reviewed the patient's lab results. ECG Data Attestation: I personally reviewed and interpreted this ECG (s) as follows: Prior ECG tracings: not available for review Interpretation: afib, rate of 78, qtc 474 HPI General Mode of arrival: ambulatory. Date/Time Provider Initiated Documentation: 01/20/19 11:58. Limitations to Documentation: no limitations. Information obtained by: patient. History of Present Illness 79 year old M presents to the emergency department with the chief complaint of headaches, described as mild, with intensity rated at 3. Quality is described as aching, and is localized to the head. Patient reports no radiation. Patient started experiencing this week(s) (3) and it has been constant. No relieving factors improve symptom(s), No exacerbating factors reported . Patient notes other (falls). Patient did receive the following treatments prior to arrival, none Related Data Home Medications Medication Instructions Recorded Confirmed losartan 50 mg PO DAILY #90 tab-cap 11/18/12 01/20/19 metoprolol succinate 25 mg PO DAILY #90 tab-cap 11/18/12 01/20/19 nitroglycerin 0.4 mg SUBLINGUAL PRN 11/18/12 01/20/19 aspirin 325 mg PO DAILY 10/31/15 01/20/19 rosuvastatin 20 mg tablet 20 mg PO DAILY 12/31/17 01/20/19 albuterol sulfate 90 mcg/actuation 1 - 2 puff INHALATION BID #18 gm 01/16/18 01/20/19 aerosol inhaler hydrocodone 10 mg-acetaminophen 1 tab PO TID PRN #15 tab MDD 20mg 10/08/18 01/20/19 325 mg tablet ibuprofen 800 mg PO QID PRN #20 tab 10/12/18 01/20/19 cyclobenzaprine 10 mg tablet 10 mg PO Q12H PRN #30 tab 11/03/18 01/20/19 fenofibrate micronized 134 mg 134 mg PO DAILY 11/03/18 01/20/19 capsule omeprazole 40 mg capsule,delayed 40 mg PO DAILY #90 cap 11/03/18 01/20/19 release bupropion HCl 300 mg 24 hr tablet, 300 mg PO QAM #90 tab 11/23/18 01/20/19 extended release furosemide 20 mg tablet 20 mg PO DAILY #90 tab 12/15/18 01/20/19 levothyroxine 150 mcg capsule 150 mcg PO DAILY #90 cap 12/15/18 01/20/19 potassium chloride 20 mEq See Rx Instructions .ROUTE .COMPLEX 01/05/19 01/20/19 tablet,extended release gabapentin 300 mg capsule 300 mg PO QHS #90 cap 01/06/19 01/20/19 citalopram 40 mg tablet 40 mg PO DAILY #90 tab 01/11/19 01/20/19 acetaminophen [Acetaminophen Extra 1,000 mg PO BID 01/20/19 01/20/19 Strength] Previous Rx's Medication Instructions Recorded albuterol sulfate 90 mcg/actuation 1 - 2 puff INHALATION BID #18 gm 01/16/18 aerosol inhaler hydrocodone 10 mg-acetaminophen 1 tab PO TID PRN #15 tab MDD 20mg 10/08/18 325 mg tablet ibuprofen 800 mg PO QID PRN #20 tab 10/12/18 cyclobenzaprine 10 mg tablet 10 mg PO Q12H PRN #30 tab 11/03/18 omeprazole 40 mg capsule,delayed 40 mg PO DAILY #90 cap 11/03/18 release bupropion HCl 300 mg 24 hr tablet, 300 mg PO QAM #90 tab 11/23/18 extended release furosemide 20 mg tablet 20 mg PO DAILY #90 tab 12/15/18 levothyroxine 150 mcg capsule 150 mcg PO DAILY #90 cap 12/15/18 gabapentin 300 mg capsule 300 mg PO QHS #90 cap 01/06/19 citalopram 40 mg tablet 40 mg PO DAILY #90 tab 01/11/19 Allergies Allergy/AdvReac Type Severity Reaction Status Date / Time Heparin Analogues Allergy Mild RASH, Verified 01/20/19 12:07 SWELLING, ITCH morphine AdvReac Severe Nausea Verified 01/20/19 12:07 codeine AdvReac Mild GI Verified 01/20/19 12:07 atorvastatin calcium AdvReac Pancreatiti Verified 01/20/19 12:07 [From Lipitor] s niacin AdvReac Pancreatiti Verified 01/20/19 12:07 [From Niaspan s Extended-Release] General Stated Complaint: Headache RIGOBERTO: 3 Review of Systems Review of Systems ROS Unobtainable: All systems reviewed & are unremarkable except as noted in HPI and below Constitutional Constitutional: Denies chills and Denies fever(s) ENT Ears, Nose, Mouth, and Throat: Denies change in voice Cardiovascular Cardiovascular: Denies chest pain and Denies dyspnea Respiratory Respiratory: Denies cough and Denies dyspnea Gastrointestinal Gastrointestinal: Denies abdominal pain, Denies nausea and Denies vomiting Musculoskeletal Musculoskeletal: Denies joint swelling Psychiatric Psychiatric: Denies depression [facility] Medical History ASHD (arteriosclerotic heart disease) (Acute) CABG and multiple stents CHF (congestive heart failure) (Acute) Hyperlipidemia (Acute) Hypertension (Chronic) Hypothyroidism (acquired) (Chronic) Memory changes (Acute 12/15/17) Sleep apnea (Chronic) No longer using CPAP - sent back Spinal stenosis (Chronic 10/04/13) multiple procedures: epidural; operations Stress at home (Acute) -early dementia, daughter-breast cancer. Surgical History Cyst in hand (Acute) Status post excision on 10/12/2018 on palmar aspect of right hand. foot surgery right heart bypass x 3 spurs left great toe spurs/osteoarthritis stint x 1 Social History Smoking/Tobacco Use Status: Former Tobacco Use Quit Date: 04/28/83 Tobacco: How many years used: 20 Alcohol Intake: current Alcohol Intake frequency: holidays/special occasions only Drug use: Never Substance use type: does not use Caregiver/Support person: No Household members: spouse Housing: apartment Communication Needs: Hard of Hearing Do you need help understanding health information?: Rarely Pets and animals: Yes Pets and animals: dog(s) Sexually active: No Do you think of yourself as: straight/heterosexual Current gender identity: decline to answer What is your relationship status?: How often do you talk on the phone with friends or family?: three or more times per week How often do you get together with friends or relatives?: once per week How often do you attend muslim or synagogue services?: decline to answer Do you belong to any clubs or organized social groups?: no Panel score (0-1 are the most socially isolated patients): 2 What type of physical activity do you participate in: none Frequency: 3-4 times per week Nora/Samaritan: No preference Special nora needs: No Seatbelt use: always Drive intox or ride w/intox transit driver: No Do you feel safe at home: Yes Do you feel safe in your relationship?: Yes Exam Const General: no acute distress Orientation: alert HENMT Head: normal to inspection Ears: external ears normal General nose exam: external nose normal Mouth: moist mucous membranes Eyes General: appearance normal, both eyes and all related structures Neck Neck: normal visual inspection Resp Effort & Inspection: normal respiratory effort and able to speak in complete sentences Cardio Rate: regular rate Skin General skin exam: no rashes or lesions noted Neuro General: alert and oriented x3 Extrem General: normal to inspection Psych Mental Status: mental status grossly normal Course Vital Signs Vital signs: Vital Signs Temperature 37 C 01/20/19 12:03 Pulse 88 01/20/19 12:03 Respiratory Rate 16 01/20/19 12:03 Blood Pressure 151/87 H 01/20/19 12:03 Pulse Oximetry 95 01/20/19 12:03 Temperature 37 C 01/20/19 12:03 Temperature Source Temporal Artery Scan 01/20/19 12:03 Pulse 88 01/20/19 12:03 Respiratory Rate 16 01/20/19 12:03 Blood Pressure 151/87 H 01/20/19 12:03 Blood Pressure Position Sitting 01/20/19 12:03 Pulse Oximetry 95 01/20/19 12:03 Oxygen Delivery Method Room Air 01/20/19 12:03 Oxygen Flow Rate 0 01/20/19 12:03 Pain Level 2 01/20/19 12:03
[2019-01-20 13:05] LABS: Abs Immature Grans 0.02 k/cumm (0.0-0.09); Absolute Basophil Count 0.02 k/cumm (0.0-0.2); Absolute Eosinophil Count 0.23 k/cumm (0.0-0.7); Absolute Lymphocyte Count 1.04 k/cumm (1.2-3.4); Absolute Monocyte Count 0.69 k/cumm (0.11-0.7); Absolute Neutrophil Count 5.43 k/cumm (1.2-6.7); Basophils % 0.3; Eosinophils % 3.1; HCT 36.1 % (40.0-50.0); HGB 11.7 g/dL (13.5-17.5); Immature Grans % 0.3; Mean Corp. HGB Concentration 32.4 g/dL (32.0-36.0); Mean Corpuscular Hemoglobin 31.3 pg (27.0-33.0); Mean Corpuscular Volume 96.5 fL (80-95); Mean Platelet Volume 9.7 fL (8.0-11.0); Monocytes % 9.3; Platelet Count 263 x1000/uL (130-400); RBC 3.74 m/cumm (4.50-6.00); RBC Distribution Width 14.1 % (11.8-14.1); White Blood Cell Count 7.43 k/cumm (4.4-10.8)
[2019-01-20 13:17] LABS: ALT 23 U/L (16-63); AST 18 U/L (15-37); Albumin 3.5 g/dL (3.4-5.0); Alkaline Phosphatase 62 U/L (46-116); Anion Gap 8.6 mmol/L (3-11); BUN 25 mg/dL (7-18); Bilirubin, Total 0.8 mg/dL (0.2-1.0); CO2 25.4 mmol/L (21.0-32.0); CREATININE 1.34 mg/dL (0.70-1.30); Calcium 8.9 mg/dL (8.5-10.1); Chloride 105 mmol/L (98-107); Estimated GFR 51.55 (mL/min/1.73m2); Glucose 120 mg/dL (70-100); Magnesium 1.8 mg/dL (1.8-2.4); Potassium 4.1 mmol/L (3.5-5.1); Sodium 139 mmol/L (136-145); Total Protein 7.2 g/dL (6.4-8.2); Troponin I < 0.05 ng/mL (0.00-0.06)
[2019-01-20 13:20] LABS: Bilirubin Negative (Negative); Blood Negative (Negative); Clarity Clear (Clear); Glucose Negative (Negative); Ketones Negative (Negative); Leukocyte Esterase Negative (Negative); Nitrite Negative (Negative); pH 6.5 (5-8)
[2019-01-20 13:32] LABS: INR 1.2 (0.9-1.1); PTT Activated 28.3 sec (21.0-31.4); Prothrombin Time 11.6 sec (9.3-11.0)
[2019-01-20 13:50] LABS: ESR 49 mm/hr (1-20)
== END 2019-01-20 14:20 | disposition home or self-care (01) ==
PROVIDERS: Emergency Provider Emergency Medicine; PCP Family Medicine
DX: R51 Headache (principal); R29.6 Repeated falls; I10 Essential (primary) hypertension; J44.9 Chronic obstructive pulmonary disease, unspecified; I11.0 Hypertensive heart disease with heart failure; I50.9 Heart failure, unspecified
CPT/HCPCS: 36415; 80053; 85652; 87040; 93005; 99285; 70450; 71046; 81003; 83605; 83735; 84484; 85025; 85610; 85730; 93010

== ENCOUNTER 2019-01-22 09:35 | Outpatient (CLI) | payer MEDICARE, OTHER, SELFPAY ==
--- NOTE | 2019-01-22 11:40 | DI.MRI_ITS ---
EXAM: MR BRAIN WO CLINICAL HISTORY: LEFT-SIDED WEAKNESS, R53.1, ESSENTIAL HTN, ? pending stroke. TECHNIQUE: Multiplanar multisequence MRI was performed. FINDINGS: There is moderate generalized cerebral atrophy and there are patchy areas of abnormal signal in periv entricular white matter bilaterally sparing the corpus callosum consistent with microvascular ischemi c changes. No other significant signal abnormality identified in the brain. The orbital and tempora l bone structures appear intact. There is normal flow void in the [id number] vasculature. Leigh ceptibility weighted imaging shows no evidence of intra- cranial hemorrhage. Diffusion-weighted imag ing shows no evidence of infarction. IMPRESSION: Cerebral atrophy and microvascular ischemic changes of white matter. No other significant findings.
== END 2019-01-22 09:55 ==
PROVIDERS: PCP Family Medicine
DX: I10 Essential (primary) hypertension (principal); R53.1 Weakness; G31.89 Other specified degenerative diseases of nervous system; R90.82 White matter disease, unspecified
CPT/HCPCS: 70551

== ENCOUNTER 2019-01-28 15:41 | Inpatient (IN) | payer MEDICARE, OTHER, SELFPAY ==
[2019-01-28] VITALS (36 sets, daily range): BP systolic 132–177; BP diastolic 68–152; PULSE 64–103; RESP 8–32; TEMP 36.7–36.8; O2SAT 91–100
--- NOTE | 2019-01-28 15:39 | ED.GENADUL_ITS ---
Discharge Plan Disposition Patient Disposition: [facility] INPATIENT Condition: Good Discharge Details Chief Complaint: Chest Pain Clinical Impression: Acute exacerbation of CHF (congestive heart failure), Chest pain Primary Care Provider: Jazzmine Rodas ED Provider: Gerry Varghese Home Meds and New Rx's Prescriptions: No Action hydrocodone-acetaminophen 10-325 mg tablet 1 tab PO TID MDD 20mg PRN (Reason: pain) Qty: 15 RF: 0 levothyroxine 175 mcg tablet 175 mcg PO DAILY Qty: 90 RF: 3 levothyroxine 175 mcg tablet 175 mcg PO DAILY Qty: 30 RF: 0 lorazepam 1 mg tablet 1 mg PO .COMPLEX PRN (Reason: anxiety) Qty: 2 RF: 0 rosuvastatin 20 mg tablet 20 mg PO DAILY RF: 0 potassium chloride 20 mEq tablet extended release See Rx Instructions .ROUTE .COMPLEX RF: 0 fenofibrate micronized 134 mg capsule 134 mg PO DAILY RF: 0 omeprazole 40 mg capsule,delayed release(DR/EC) 40 mg PO DAILY Qty: 90 RF: 4 cyclobenzaprine 10 mg tablet 10 mg PO Q12H PRN (Reason: muscle spasm) Qty: 30 RF: 4 bupropion HCl 300 mg tablet extended release 24 hr 300 mg PO QAM Qty: 90 RF: 0 losartan 100 mg tablet 100 mg PO DAILY Qty: 90 RF: 3 nitroglycerin 0.4 MG tablet, sublingual 0.4 mg Sublingual PRN RF: 0 metoprolol succinate 25 MG tablet extended release 24 hr 25 mg PO DAILY Qty: 90 RF: 4 albuterol sulfate [ProAir HFA] 90 mcg/actuation HFA aerosol inhaler 1 - 2 puff Inhalation BID Qty: 18 RF: 6 furosemide 20 mg tablet 20 mg PO DAILY Qty: 90 RF: 4 citalopram 40 mg tablet 40 mg PO DAILY Qty: 90 RF: 4 aspirin 325 MG tablet 325 mg PO DAILY RF: 0 ibuprofen 800 mg tablet 800 mg PO QID PRN (Reason: pain) Qty: 20 RF: 0 acetaminophen [Acetaminophen Extra Strength] 500 mg Tablet 1,000 mg PO BID RF: 0 Medical Decision Making This is a pleasant 79-year-old male with a past medical history of hypertension, high cholesterol, congestive heart failure, CABG in 1983, who presents today for evaluation of chest pain shortness of breath. The patient states that over the last week he has had notable chest pressure, significantly worsened with exertion, he has had associated shortness of breath with this. He states that it feels different than his last myocardial infarction over 30 years ago. Physical exam demonstrates decreased breath sounds, small wheezes in the bases, breathing treatment was given. +2 pitting edema in his lower extremities. Of concern he did have a long trip the end of October back from [place]. Signs and symptoms are certainly concerning for stable angina, with an acute worsening concerning for subsequent unstable angina. EKG shows no evidence of STEMI. There are some nonspecific T wave abnormalities, but these seem to be consistent with prior EKGs. Differential is broad but also includes PE. Suspect mild CHF. Bedside echo is difficult secondary to patient body habitus. We will perform cardiac work-up, pending labs will likely get a CT angios. With his bruising and multiple falls onto his abdomen I feel that further imaging of his abdomen may certainly be warranted and beneficial. We wi ll give him his full dose aspirin today as he has not yet taken it. 6:55 PM Patient's laboratory work-up has returned, no significant white count, hemoglobin stable at 11.8, platelets normal, electrolytes normal, creatinine is 1.48, which is near his baseline. Troponin is less than 0.05, proBNP is elevated at 3600. TSH is also high. But free T4 is normal. Lipase normal. CT angios the chest demonstrates no evidence of pulmonary embolism, there is evidence of mild pleural effusion, and mild fluid overload. Prior to results the patient was given 20 mg of Lasix to gently diurese. Review of the patient's records from [place] demonstrates notable coronary artery disease in general, I feel that he would certainly benefit from admission, continued serial troponins, gentle diuresis. 7:30 PM I discussed the case with the hospitalist , he agrees with the assessment and plan. Patient will be admitted for further management. I have extensively reviewed the treatment plan with the patient. I have addressed all patient concerns at this time. I have also discussed the plan with the admitting physician and they agree with the current assessment and plan and have agreed to assume responsibility for the patient. All parties demonstrate verbal understanding and agreement with our assessment and plan at this time. EKG 15: 45 Rate 75, intervals demonstrate a NV of 318, QTc 438, QRS 100, sinus rhythm with first-degree AV block, nonspecific T wave abnormalities in the 2 through V6 demonstrating minimal atypical depression, no reciprocal ST elevation. PVCs are noted. EKG appears to be unchanged from prior EKG from 01/20/2019. FINDINGS: Pulmonary arteries: Normal. No pulmonary emboli. Aorta: Unremarkable. No aortic aneurysm. No aortic dissection. Lungs: Unremarkable. No consolidation. No masses. Pleural space: Small right pleural effusion and trace left pleural effusion. Heart: Evidence of prior CABG, cardiomegaly and coronary artery calcification. Lymph nodes: Mild mediastinal and bilateral hilar lymphadenopathy with largest lymph nodes measuring 24 x 12 mm. Bones/joints: Unremarkable. No acute fracture. Soft tissues: Unremarkable. IMPRESSION: Mild fluid overload/CHF with small pleural effusions. Mild mediastinal and hilar adenopathy of uncertain significance. No evidence of pulmonary embolism. FINDINGS: VASCULATURE: Aorta: No aortic aneurysm. No aortic dissection. Celiac trunk and mesenteric arteries: No occlusion or significant stenosis. Renal arteries: No occlusion or significant stenosis. Right iliac arteries: No occlusion or significant stenosis. Left iliac arteries: No occlusion or significant stenosis. ABDOMEN: Liver: Enlarged fatty infiltrated liver. Questionable cirrhosis. There are no focal liver lesions present. Gallbladder and bile ducts: Contracted gallbladder. Pancreas: Unremarkable. No mass. No ductal dilation. Spleen: Normal. No splenomegaly. Adrenals: Unremarkable. No mass. Kidneys and ureters: Normal. No hydronephrosis. Stomach and bowel: Diverticular disease of the colon without evidence of acute diverticulitis. There is no evidence of intestinal perforation or obstruction. Appendix: A normal appendix is identified. PELVIS: Bladder: Unremarkable. No mass. Reproductive: The prostate gland is enlarged. ABDOMEN and PELVIS: Intraperitoneal space: Unremarkable. No free air. No significant fluid collection. Bones/joints: Unremarkable. No acute fracture. No dislocation. Soft tissues: There is a small fat-containing umbilical hernia. Mild edema in the abdominal wall. Lymph nodes: Unremarkable. No enlarged lymph nodes. IMPRESSION: Mild generalized fluid overload. Additional findings as described. Thank you for allowing us to participate in the care of your patient. Dictated and Authenticated by: Lila Poe MD HPI General Date/Time Provider Initiated Documentation: 01/28/19 15:54 . HPI Narrative: This is a 79-year-old male with a history of atherosclerotic heart disease, congestive heart failure, hypertension, high cholesterol, hypothyroidism, with previous cardiac bypass, who presents today for evaluation of chest pain shortness of breath. Patient states that for the last week he has had mild to moderate chest pressure, and then when he and he would walk around or exert himself he had notable shortness of breath. He was subsequently relieved with rest. Today he had a notable exacerbation of all of the symptoms, as well as continued significant heavy chest pressure, he took 2 nitroglycerin had mild relief. By the time he arrived here to the ED his symptoms had moderately improved. He still does admit to mild chest pressure at this time. Of note he also admits to mild paroxysmal nocturnal dyspnea, as well as increased weight gain and swelling for his lower extremities. In addition to this he does admit to a long trip 1-/2 to 2 months ago when he returned back from [place]. He denies any hemoptysis. He does admit to a relatively nonproductive cough. He denies any history of PE in the past. He denies any other complaints at this time. He states that the symptoms feel very different than when he had his last heart attack. Of historical note his CABG was in 1983, and he does normally reside in [facility] and the majority of his medical records can be found at [facility] ([facility] Also of note the patient has very vivid dreams, and states that he often falls out of bed, he has been doing this multiple times over the last few weeks, which has caused some bruising on his abdomen. 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 Related Data Home Medications Medication Instructions Recorded Confirmed metoprolol succinate 25 mg PO DAILY #90 tab-cap 11/18/12 01/21/19 nitroglycerin 0.4 mg SUBLINGUAL PRN 11/18/12 01/21/19 aspirin 325 mg PO DAILY 10/31/15 01/21/19 rosuvastatin 20 mg tablet 20 mg PO DAILY 12/31/17 01/21/19 albuterol sulfate 90 mcg/actuation 1 - 2 puff INHALATION BID #18 gm 01/16/18 01/21/19 aerosol inhaler hydrocodone 10 mg-acetaminophen 1 tab PO TID PRN #15 tab MDD 20mg 10/08/18 01/21/19 325 mg tablet ibuprofen 800 mg PO QID PRN #20 tab 10/12/18 01/21/19 cyclobenzaprine 10 mg tablet 10 mg PO Q12H PRN #30 tab 11/03/18 01/21/19 fenofibrate micronized 134 mg 134 mg PO DAILY 11/03/18 01/21/19 capsule omeprazole 40 mg capsule,delayed 40 mg PO DAILY #90 cap 11/03/18 01/21/19 release bupropion HCl 300 mg 24 hr tablet, 300 mg PO QAM #90 tab 11/23/18 01/21/19 extended release furosemide 20 mg tablet 20 mg PO DAILY #90 tab 12/15/18 01/21/19 potassium chloride 20 mEq See Rx Instructions .ROUTE .COMPLEX 01/05/19 01/21/19 tablet,extended release citalopram 40 mg tablet 40 mg PO DAILY #90 tab 01/11/19 01/21/19 acetaminophen [Acetaminophen Extra 1,000 mg PO BID 01/20/19 01/21/19 Strength] levothyroxine 175 mcg tablet 175 mcg PO DAILY #30 tab 01/21/19 01/21/19 levothyroxine 175 mcg tablet 175 mcg PO DAILY #90 tab 01/21/19 01/21/19 lorazepam 1 mg tablet 1 mg PO .COMPLEX PRN #2 tab 01/21/19 01/21/19 losartan 100 mg tablet 100 mg PO DAILY #90 tab 01/25/19 01/25/19 Previous Rx's Medication Instructions Recorded albuterol sulfate 90 mcg/actuation 1 - 2 puff INHALATION BID #18 gm 01/16/18 aerosol inhaler hydrocodone 10 mg-acetaminophen 1 tab PO TID PRN #15 tab MDD 20mg 10/08/18 325 mg tablet ibuprofen 800 mg PO QID PRN #20 tab 10/12/18 cyclobenzaprine 10 mg tablet 10 mg PO Q12H PRN #30 tab 11/03/18 omeprazole 40 mg capsule,delayed 40 mg PO DAILY #90 cap 11/03/18 release bupropion HCl 300 mg 24 hr tablet, 300 mg PO QAM #90 tab 11/23/18 extended release furosemide 20 mg tablet 20 mg PO DAILY #90 tab 12/15/18 citalopram 40 mg tablet 40 mg PO DAILY #90 tab 01/11/19 levothyroxine 175 mcg tablet 175 mcg PO DAILY #30 tab 01/21/19 levothyroxine 175 mcg tablet 175 mcg PO DAILY #90 tab 01/21/19 lorazepam 1 mg tablet 1 mg PO .COMPLEX PRN #2 tab 01/21/19 losartan 100 mg tablet 100 mg PO DAILY #90 tab 01/25/19 Allergies Allergy/AdvReac Type Severity Reaction Status Date / Time Heparin Analogues Allergy Mild RASH, Verified 01/25/19 08:24 SWELLING, ITCH morphine AdvReac Severe Nausea Verified 01/25/19 08:24 codeine AdvReac Mild GI Verified 01/25/19 08:24 atorvastatin calcium AdvReac Pancreatiti Verified 01/25/19 08:24 [From Lipitor] s niacin AdvReac Pancreatiti Verified 01/25/19 08:24 [From Niaspan s Extended-Release] General RIGOBERTO: 3 Review of Systems Review of Systems ROS Unobtainable: All systems reviewed & are unremarkable except as noted in HPI and below PFSH Medical History ASHD (arteriosclerotic heart disease) (Acute) CABG and multiple stents CHF (congestive heart failure) (Acute) Hyperlipidemia (Acute) Hypertension (Chronic) Hypothyroidism (acquired) (Chronic) Memory changes (Acute 12/15/17) Sleep apnea (Chronic) No longer using CPAP - sent back Spinal stenosis (Chronic 10/04/13) multiple procedures: epidural; operations Stress at home (Acute) -early dementia, daughter-breast cancer. Surgical History Cyst in hand (Acute) Status post excision on 10/12/2018 on palmar aspect of right hand. foot surgery right heart bypass x 3 spurs left great toe spurs/osteoarthritis stint x 1 Social History Smoking/Tobacco Use Status: Former Tobacco Use Quit Date: 04/28/83 Tobacco: How many years used: 20 Alcohol Intake: current Alcohol Intake frequency: holidays/special occasions only Drug use: Never Substance use type: does not use Caregiver/Support person: No Household members: spouse Housing: apartment Communication Needs: Hard of Hearing Do you need help understanding health information?: Rarely Pets and animals: Yes Pets and animals: dog(s) Sexually active: No Do you think of yourself as: straight/heterosexual Current gender identity: decline to answer What is your relationship status?: How often do you talk on the phone with friends or family?: three or more times per week How often do you get together with friends or relatives?: once per week How often do you attend episcopal or alevism services?: decline to answer Do you belong to any clubs or organized social groups?: no Panel score (0-1 are the most socially isolated patients): 2 What type of physical activity do you participate in: none Frequency: 3-4 times per week Nora/Hinduism: No preference Special nora needs: No Seatbelt use: always Drive intox or ride w/intox wedding transportation driver: No Do you feel safe at home: Yes Do you feel safe in your relationship?: Yes Exam Narrative Exam Narrative: 1.Const: Well-nourished, Well-developed, appearing stated age 2.Eyes: PERRL, no conjunctival injection, and symmetrical lids. 3.ENT: Atraumatic external nose and ears. Moist MM. Neck: Symmetric, trachea midline, No thyromegaly. No erythema in his posterior oropharynx, no tonsillar exudate. Patient demonstrates good movement of cervical neck. There is no nuchal rigidity, no nuchal tenderness. Patient is able to flex the neck without any difficulty or significant pain. Negative Kernig's and Brudzinski sign. 4.CVS: +S1/S2, No murmurs or gallops. Peripheral pulses 2+ and equal in all extremities. Brisk capillary refill in all extremities. 5.RESP: Unlabored respiratory effort. Diminished breath sounds throughout, mild wheezes in the bases. No significant rhonchi. 6.GI: Soft, Nontender/Nondistended, No hepatosplenomegaly. No guarding or rebound. Mild bruising over the right side of his abdomen. No significant tenderness. 7.MSK: Normocephalic/Atraumatic, Extremities w/o deformity or ttp No cyanosis or clubbing, Normal movement of all extremities. No calf tenderness, +2 pitting edema bilaterally. Dorsalis pedis posterior tibial pulses and radial pulses +2 bilaterally. 8.Skin: Warm, Dry. Bruising noted on the right side of his abdomen. 9.Neuro: spinneret person II-XII grossly intact. Sensation grossly intact, no focal neurologic deficits. 10.Psych: (AAO) x3. Appropriate mood and affect
--- NOTE | 2019-01-28 15:53 | DI.RAD_ITS ---
EXAM: XR PORTABLE CHEST AP INDICATION: sob. COMPARISON: XR CHEST 2V PA LATERAL from 01/20/2019 TECHNIQUE: 2D digital imaging was performed. FINDINGS: The heart is enlarged. There are multiple sternal sutures. Small right pleural effusion was present on CT and is difficult to appreciate on this AP view. No gross pulmonary edema or consolidation. IMPRESSION: Cardiomegaly, no evidence of acute process. Pleural effusion was identified on CT.
[2019-01-28] MEDS: Albuterol/Ipratropium 3 ML UPD VIAL UPD (15:59)
[2019-01-28] MEDS: Aspirin 81 MG CHEW 324 MG CH (16:00)
[2019-01-28 16:05] LABS: Abs Immature Grans 0.04 k/cumm (0.0-0.09); Absolute Basophil Count 0.02 k/cumm (0.0-0.2); Absolute Eosinophil Count 0.23 k/cumm (0.0-0.7); Absolute Lymphocyte Count 0.95 k/cumm (1.2-3.4); Absolute Monocyte Count 0.74 k/cumm (0.11-0.7); Absolute Neutrophil Count 5.05 k/cumm (1.2-6.7); Basophils % 0.3; Eosinophils % 3.3; HCT 36.1 % (40.0-50.0); HGB 11.8 g/dL (13.5-17.5); Immature Grans % 0.6; Lymphocytes % 13.5; Mean Corp. HGB Concentration 32.7 g/dL (32.0-36.0); Mean Corpuscular Volume 97.8 fL (80-95); Mean Platelet Volume 9.8 fL (8.0-11.0); Monocytes % 10.5; Neutrophils % 71.8; Platelet Count 261 x1000/uL (130-400); RBC 3.69 m/cumm (4.50-6.00); RBC Distribution Width 14.2 % (11.8-14.1); White Blood Cell Count 7.03 k/cumm (4.4-10.8)
[2019-01-28 16:13] LABS: Magnesium 1.9 mg/dL (1.8-2.4)
[2019-01-28 16:17] LABS: INR 1.2 (0.9-1.1); PTT Activated 27.8 sec (21.0-31.4)
[2019-01-28 16:28] LABS: ALT 28 U/L (16-63); AST 18 U/L (15-37); Albumin 3.5 g/dL (3.4-5.0); Alkaline Phosphatase 78 U/L (46-116); Anion Gap 7.4 mmol/L (3-11); BUN 30 mg/dL (7-18); Bilirubin, Total 0.8 mg/dL (0.2-1.0); CO2 29.6 mmol/L (21.0-32.0); CREATININE 1.48 mg/dL (0.70-1.30); Calcium 8.9 mg/dL (8.5-10.1); Chloride 104 mmol/L (98-107); Estimated GFR 45.97 (mL/min/1.73m2); Glucose 117 mg/dL (70-100); Potassium 4.4 mmol/L (3.5-5.1); Sodium 141 mmol/L (136-145); Total Protein 7.5 g/dL (6.4-8.2); Troponin I < 0.05 ng/mL (0.00-0.06)
[2019-01-28 16:43] LABS: FREE T4 1.03 ng/dL (0.76-1.46); Lipase 94 U/L (73-393); NT-proBNP 3681 pg/mL
--- NOTE | 2019-01-28 16:48 | DI.VRAD_ITS ---
PROCEDURE INFORMATION: Exam: XR Chest, 1 View Exam date and time: 01/28/2019 4:08 PM Clinical history: 79 years old, male; Shortness of breath; Patient HX: SOB TECHNIQUE: Imaging protocol: XR of the chest Views: 1 view. COMPARISON: CR XR CHEST 2V PA LATERAL 01/20/2019 1:42 PM FINDINGS: Lungs: Slight prominence of the pulmonary vasculature with indistinct large and may represent interstitial edema. No focal consolidation. Pleural space: Apparent blunting of the bilateral lateral costophrenic angles may be related to technique. Trace pleural effusions not excluded. No pneumothorax. Heart/Mediastinum: Stable mild to moderate cardiomegaly which may be accentuated by AP portable technique. Tracheal air column is unremarkable. Vasculature: Tortuous calcified thoracic aorta. Bones/joints: Degenerative changes of the thoracic. Median sternotomy. IMPRESSION: 1. [id number] cardiomegaly, may be accentuated by technique. 2. Prominent vasculature with indistinct margins may represent interstitial edema. 3. Possible trace pleural effusions. Dictated and Authenticated by: Lori Tavares MD. Ordering:ROSARIO Garrett MD
[2019-01-28] MEDS: Omnipaque 350 MG/ML 100 ML BTL 80 ML IJ (16:49)
[2019-01-28] MEDS: Normal Saline - Diluent 50 ML VIAL IV (16:51)
--- NOTE | 2019-01-28 17:05 | DI.CT_ITS ---
EXAM: CT CHEST PE ABD PELVIS W CLINICAL HISTORY: sob, chest pain, r/o PE, bruising right abd. TECHNIQUE: CT examination of the chest, abdomen, and pelvis was performed utilizing CTA protocol wit h intravenous infusion of 80 cc of Omnipaque 350. 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 There is a prior sternotomy and apparent CABG surgery. Heart is enlarged. No pericardial effusion. No evidence of pulmonary embolic disease. Thoracic aor ta not ideally opacified but no thoracic aortic aneurysm or dissection is identified. There is mild prominence of mediastinal and hilar lymph nodes, the largest a hilar lymph node on the left measuring about 22 millimeters in greatest diameter. There is a small to moderate-sized right pleural effusio n. Very prominent epicardial fat pads noted bilaterally. No pulmonary consolidation, no evidence of acute pulmonary edema. Liver has a mildly nodular contour raising the possibility of cirrhosis. Spleen is unremarkable in a ppearance as is the pancreas. No biliary dilatation. Gallbladder is contracted and thick walled, po ssibly associated with mild heart failure. No biliary dilatation seen. Abdominal aorta is of normal diameter and no major vascular abnormality is seen. Small bilateral fat containing inguinal hernias and a fat containing umbilical hernia noted. Appendix appears normal. No evidence of diverticuliti s or bowel obstruction. Adrenals and kidneys are unremarkable with incidental tiny left renal cyst. Urinary bladder thick-walled, question chronic bladder outlet obstruction. No abdominal or pelvic a denopathy seen. IMPRESSION: 1. Right pleural effusion without ifeanyi pulmonary edema, possibility of incipient CHF is raised. 2. No evidence of pulmonary embolic disease. 3. 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
[2019-01-28] MEDS: Furosemide 20 MG/2 ML VIAL IVP ×2 (17:20→23:27)
--- NOTE | 2019-01-28 18:47 | DI.VRAD_ITS ---
PROCEDURE INFORMATION: Exam: CT Angiography Chest With Contrast Exam date and time: 01/28/2019 4:57 PM Clinical history: 79 years old, male; Type not specified; Abdominal pain; Patient HX: Increased SOB, chest pain. Right sided abdominal bruising. TECHNIQUE: Imaging protocol: Computed tomographic angiography of the chest with intravenous contrast. 3D rendering: MIP reconstructed images were created and reviewed. Radiation optimization: All CT scans at this facility use at least one of these dose optimization techniques: automated exposure control; mA and/or kV adjustment per patient size (includes targeted exams where dose is matched to clinical indication); or iterative reconstruction. Contrast material: OMNIPAQUE 350; Contrast volume: 80 ml; Contrast route: IV; COMPARISON: CR XR PORTABLE CHEST AP 01/28/2019 3:56 PM FINDINGS: Pulmonary arteries: Normal. No pulmonary emboli. Aorta: Unremarkable. No aortic aneurysm. No aortic dissection. Lungs: Unremarkable. No consolidation. No masses. Pleural space: Small right pleural effusion and trace left pleural effusion. Heart: Evidence of prior CABG, cardiomegaly and coronary artery calcification. Lymph nodes: Mild mediastinal and bilateral hilar lymphadenopathy with largest lymph nodes measuring 24 x 12 mm. Bones/joints: Unremarkable. No acute fracture. Soft tissues: Unremarkable. IMPRESSION: Mild fluid overload/CHF with small pleural effusions. Mild mediastinal and hilar adenopathy of uncertain significance. No evidence of pulmonary embolism. PROCEDURE INFORMATION: Exam: CT Angiography Abdomen and Pelvis With Contrast Exam date and time: 01/28/2019 4:57 PM Clinical history: 79 years old, male; Type not specified; Abdominal pain; Patient HX: Increased SOB, chest pain. Right sided abdominal bruising. TECHNIQUE: Imaging protocol: Computed tomographic angiography of the abdomen and pelvis with intravenous contrast material. 3D rendering: MIP reconstructed images were created and reviewed. Radiation optimization: All CT scans at this facility use at least one of these dose optimization techniques: automated exposure control; mA and/or kV adjustment per patient size (includes targeted exams where dose is matched to clinical indication); or iterative reconstruction. COMPARISON: CR XR PORTABLE CHEST AP 01/28/2019 3:56 PM FINDINGS: VASCULATURE: Aorta: No aortic aneurysm. No aortic dissection. Celiac trunk and mesenteric arteries: No occlusion or significant stenosis. Renal arteries: No occlusion or significant stenosis. Right iliac arteries: No occlusion or significant stenosis. Left iliac arteries: No occlusion or significant stenosis. ABDOMEN: Liver: Enlarged fatty infiltrated liver. Questionable cirrhosis. There are no focal liver lesions present. Gallbladder and bile ducts: Contracted gallbladder. Pancreas: Unremarkable. No mass. No ductal dilation. Spleen: Normal. No splenomegaly. Adrenals: Unremarkable. No mass. Kidneys and ureters: Normal. No hydronephrosis. Stomach and bowel: Diverticular disease of the colon without evidence of acute diverticulitis. There is no evidence of intestinal perforation or obstruction. Appendix: A normal appendix is identified. PELVIS: Bladder: Unremarkable. No mass. Reproductive: The prostate gland is enlarged. ABDOMEN and PELVIS: Intraperitoneal space: Unremarkable. No free air. No significant fluid collection. Bones/joints: Unremarkable. No acute fracture. No dislocation. Soft tissues: There is a small fat-containing umbilical hernia. Mild edema in the abdominal wall. Lymph nodes: Unremarkable. No enlarged lymph nodes. IMPRESSION: Mild generalized fluid overload. Additional findings as described. Dictated and Authenticated by: Llia Poe MD. Ordering:ROSARIO Garrett MD
[2019-01-28 20:54] LABS: Anion Gap 11.5 mmol/L (3-11); BUN 34 mg/dL (7-18); CO2 23.5 mmol/L (21.0-32.0); CREATININE 1.47 mg/dL (0.70-1.30); Calcium 9.1 mg/dL (8.5-10.1); Chloride 104 mmol/L (98-107); Estimated GFR 46.33 (mL/min/1.73m2); Glucose 112 mg/dL (70-100); Potassium 4.3 mmol/L (3.5-5.1); Sodium 139 mmol/L (136-145)
[2019-01-28 21:11] LABS: Troponin I < 0.05 ng/mL (0.00-0.06)
--- NOTE | 2019-01-28 22:01 | W.PM.HP.N ---
Date of service: 01/28/19 Time of Service: 22:01 Assessment and Plan Assessment and plan (1) Exertional chest pain: Status: Acute Assessment and plan: given his longstanding hx of CAD and no recent stress MPI and accelerating symptoms of WADE and exertional CP, he needs to have his acute CHF brought under control then have a Lexiscan stress MPI. For tonight he is pain free and his dyspnea seems to be improved w/ iv lasix. I will continue to cycle his troponin, continue iv lasix and check an echo in the a.m. to both evaluate his LV and RV function looking for RWMA as well as to evaluate overall LVEF and to rule out valvular HD. Once his CHF is under control then outpatient stress MPI can be done w/ Lexiscan. If his troponins rule in for ACS then he will need cath more urgently. He is allergic to heparin so anticoagulating him acutely could be problematic. I am not sure whether his allergies would preclude fondaparinux or whether argotroban would be more appropriate. 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 (2) CHF (congestive heart failure): Status: Acute Assessment and plan: continue his losartan and continue iv lasix until euvolemic; monitor BUN and creatinine as well as BNP; check echo in the a.m. and get cardiology consult in the a.m. particularly since he will need to establish with someone local to manage him. He also needs to be re-evaluated on his BIPAP to try to work with him on a setting that will control his symptoms and he can tolerate. Qualifiers: Heart failure type: unspecified Heart failure chronicity: acute on chronic Qualified Code(s): I50.9 - Heart failure, unspecified (3) ASHD (arteriosclerotic heart disease): Status: Acute Assessment and plan: cycle his troponins tonight and treat his CHF; when stable arrange Lexiscan stress MPI. I will check his glycohemoglobin A1c to rule out occult DM and also check his lipid profile to assess control of his lipids. (4) Hypertension: Status: Chronic Assessment and plan: bp was elevated on admission; not clear whether this is stress reaction to his CHF or poorly controlled HTN which may be part of his cause for his CHF exacerbation Qualifiers: Hypertension type: essential hypertension Qualified Code(s): I10 - Essential (primary) hypertension (5) Sleep apnea: Status: Chronic Assessment and plan: needs re-evaluated and treated as note above Qualifiers: Sleep apnea type: obstructive Qualified Code(s): G47.33 - Obstructive sleep apnea (adult) (pediatric) (6) Hypothyroidism (acquired): Status: Chronic Assessment and plan: seems to be on adequate levothyroxine but his TSH should be repeat in 6 to 8 weeks to be sure that it is not rising. History of Present Illness History of Present Illness Chief Complaint: chest pain, short of breath Narrative: 79 yr old male w/ PMH of CAD, s/p remote CABG x 3 vessel, HTN, HLD, DARRIN, hypothyroidism and CHF presents w/ progressive WADE and chest pressure over past several months w/ acceleration over past few weeks to the point that he is unable to walk 20 to 30 feet w/out getting dyspneic to the point he has to sit down. He and his moved from [place], [place] back to [place] in September 2018. His suffers from dementia which has added stress to his daily routine. He admits to a chest pressure and dyspnea that will come on in spells worsened by physical activity but sometime by emotional distress. He also notes some increased pedal and ankle edema. He has had frequent falls over past three months falling at least 5 times but denies any syncope with these falls. He blames them on balance issues and also on having to change the side of the bed in which his and he has to sleep since moving to [place]. They live in a prison community in [place]. He has DARRIN but does not use a CPAP/BIPAP due to unable to keep the mask on d/t high pressures. He also says that he was diagnosed w/ intermittent atrial fibrillation over the past winter but is not on anticoagulants and has not had DCC treatment. His CABG is 3 vessels and was done 34 yrs ago at [facility] (now [facility] in [place]). His last stress MPI was 5 to 7 yrs ago in [place]. Evaluation in the ER included CXR, EKG, labs and CTA of his chest/abdomen/pelvis. CXR was consistent w/ CHF including cardiomegaly, pulmonary interstitial edema, and bilateral small pleural effusions. CTA of chest demonstrated mild fluid overload and small bilateral pleural effusion and mild mediastinal and hilar adenopathy. NO PE. CTA of his abdomen and pelvis did not demonstrate any AAA nor any significant mesenteric stenosis nor renal artery stenosis. He has BPH, small umbilical hernia (not incarcerated), diverticulosis and fatty liver. EKG was consistent w/ SR w/ severe 1st degree AV block and IVCD and diffuse ST-T abnormalities but unchanged from prior ECG from Jan 20 but markedly different from a normal EKG in October 16, 2011. Labs demonstrated normal troponin of <0.05 x 2 sets, elevated pro-BNP 3681, elevated BUN 34, creatinine of 1.47, slightly elevated TSH of 4.90 w/ normal free T4 1.03, normal LFT's. Treatment in the ER consisted of albuterol aerosol treatment, lasix 20 mg IVP given at 16:52, ASA 324 mg given at 15:51. He is admitted now for evaluation and treatment of acute on chronic CHF w/ exacerbation and evaluation of his exertional chest pressure. [facility] Medical History ASHD (arteriosclerotic heart disease) (Acute) CABG and multiple stents CHF (congestive heart failure) (Acute) Hyperlipidemia (Acute) Hypertension (Chronic) Hypothyroidism (acquired) (Chronic) Memory changes (Acute 12/15/17) Sleep apnea (Chronic) No longer using CPAP - sent back Spinal stenosis (Chronic 10/04/13) multiple procedures: epidural; operations Stress at home (Acute) -early dementia, daughter-breast cancer. Surgical History Cyst in hand (Acute) Status post excision on 10/12/2018 on palmar aspect of right hand. foot surgery right heart bypass x 3 spurs left great toe spurs/osteoarthritis stint x 1 Family History Mother , 87 Stroke Father , 48 Heart disease Hyperlipidemia Brother No problems noted. Maternal Grandfather No problems noted. Paternal Grandfather No problems noted. Maternal Grandmother , 98 No problems noted. Paternal Grandmother , 71 Heart disease Daughter , 53 No problems noted. Social History Smoking/Tobacco Use Status: Former Tobacco Use Quit Date: 04/28/83 Tobacco: How many years used: 20 Alcohol Intake: current Alcohol Intake frequency: holidays/special occasions only Drug use: Never Substance use type: does not use Caregiver/Support person: No Household members: spouse Housing: apartment Communication Needs: Hard of Hearing Do you need help understanding health information?: Rarely Pets and animals: Yes Pets and animals: dog(s) Sexually active: No Do you think of yourself as: straight/heterosexual Current gender identity: decline to answer What is your relationship status?: How often do you talk on the phone with friends or family?: three or more times per week How often do you get together with friends or relatives?: once per week How often do you attend sabianist or oriental orthodox services?: decline to answer Do you belong to any clubs or organized social groups?: no Panel score (0-1 are the most socially isolated patients): 2 What type of physical activity do you participate in: none Frequency: 3-4 times per week Nora/Mormonism: No preference Special nora needs: No Seatbelt use: always 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 Do you feel safe at home: Yes Do you feel safe in your relationship?: Yes Meds Home Medications and Allergies Home Medications Medication Instructions Recorded Confirmed Type metoprolol succinate 25 mg PO DAILY #90 tab-cap 11/18/12 01/28/19 History nitroglycerin 0.4 mg SUBLINGUAL PRN 11/18/12 01/28/19 History aspirin 325 mg PO DAILY 10/31/15 01/28/19 History rosuvastatin 20 mg tablet 20 mg PO DAILY 12/31/17 01/28/19 History albuterol sulfate 90 mcg/actuation 1 - 2 puff INHALATION BID #18 gm 01/16/18 01/28/19 Rx aerosol inhaler hydrocodone 10 mg-acetaminophen 1 tab PO TID PRN #15 tab MDD 20mg 10/08/18 01/28/19 Rx 325 mg tablet ibuprofen 800 mg PO QID PRN #20 tab 10/12/18 01/28/19 Rx cyclobenzaprine 10 mg tablet 10 mg PO Q12H PRN #30 tab 11/03/18 01/28/19 Rx fenofibrate micronized 134 mg 134 mg PO DAILY 11/03/18 01/28/19 History capsule omeprazole 40 mg capsule,delayed 40 mg PO DAILY #90 cap 11/03/18 01/28/19 Rx release bupropion HCl 300 mg 24 hr tablet, 300 mg PO QAM #90 tab 11/23/18 01/28/19 Rx extended release furosemide 20 mg tablet 20 mg PO DAILY #90 tab 12/15/18 01/28/19 Rx potassium chloride 20 mEq See Rx Instructions .ROUTE .COMPLEX 01/05/19 01/28/19 History tablet,extended release citalopram 40 mg tablet 40 mg PO DAILY #90 tab 01/11/19 01/28/19 Rx acetaminophen [Acetaminophen Extra 1,000 mg PO BID 01/20/19 01/28/19 History Strength] levothyroxine 175 mcg tablet 175 mcg PO DAILY #30 tab 01/21/19 01/28/19 Rx lorazepam 1 mg tablet 1 mg PO .COMPLEX PRN #2 tab 01/21/19 01/28/19 Rx losartan 100 mg tablet 100 mg PO DAILY #90 tab 01/25/19 01/28/19 Rx Allergies Allergy/AdvReac Type Severity Reaction Status Date / Time Heparin Analogues Allergy Mild RASH, Verified 01/25/19 08:24 SWELLING, ITCH morphine AdvReac Severe Nausea Verified 01/25/19 08:24 codeine AdvReac Mild GI Verified 01/25/19 08:24 atorvastatin calcium AdvReac Pancreatiti Verified 01/25/19 08:24 [From Lipitor] s niacin AdvReac Pancreatiti Verified 01/25/19 08:24 [From Niaspan s Extended-Release] Exam Const General: cooperative and no acute distress Nutritional Appearance: obese morbidly obese Orientation: alert, awake and oriented x3 [facility] Head: normal to inspection, no palpable skull fracture, normocephalic and atraumatic Mouth: oral mucosae normal, lip normal, tongue normal, oropharynx normal and moist mucous membranes Teeth and gingiva: dentures and edentulous Throat: posterior oropharynx normal Neck Neck: normal visual inspection, full ROM, no lymphadenopathy and no JVD (unable to assess JVD d/t obesity and thick neck) Thyroid: thyroid normal Carotids: normal carotid upstroke and no bruits Chest Chest: abnormal inspection of the chest barrel chest Cardio Palpation: normal PMI Rate: regular rate Rhythm: abnormal rhythm with ectopic beats Heart Sounds: S1 normal, S2 normal, no gallops, no murmurs and no rubs Bruits: no abdominal aortic bruits and no carotid bruits Pulses: posterior tibial pulses present bilaterally 1+ and diminished and dorsalis pedis pulses present bilaterally 1+ and diminished GI Inspection: obesity and visible herniation (umbilical) Palpation: soft and no hepatosplenomegaly Percussion: normal to percussion Auscultation: normal bowel sounds Back/Spine/Pelvis Back: no CVA tenderness Cervical Spine: normal cervical lordosis Thoracic/Lumbar Spine: thoracic and lumbar spine normal to inspection Skin General skin exam: no rashes or lesions noted, elasticity normal and turgor normal Neuro General: alert, awake, oriented x3, moves all extremities and no focal motor deficits Cognition: normal cognition Speech: speech normal Extrem General: full ROM and edema Laterality: bilateral (2+ pitting pedal and ankle edema; 1+ pitting pretibial edema) Right lower extremity: edema Details: pitting and 1+ Left lower extremity: edema Details: pitting and 1+ Psych Appearance: grossly normal Mental Status: mental status grossly normal Speech and Movement: speech and movement normal Mood: congruent mood Affect: normal affect Attitude: cooperative Thought Process: normal Thought Content: normal Insight: insight good Judgment: judgment good Results Imaging Chest x-ray: image reviewed Abdomen CT scan report/results: report reviewed CT scan - chest: report reviewed EKG: image reviewed Labs Result diagrams: 01/28/19 15:47 01/28/19 20:15 Labs: Laboratory Results - last 24 hr 01/28/19 01/28/19 01/28/19 15:47 15:47 15:47 WBC 7.03 RBC 3.69 L Hgb 11.8 L Hct 36.1 L MCV 97.8 H MCH 32.0 MCHC 32.7 RDW 14.2 H Plt Count 261 MPV 9.8 Immature Gran % 0.6 Neutrophils % 71.8 Lymphocytes % 13.5 Monocytes % 10.5 Eosinophils % 3.3 Basophils % 0.3 Absolute Neutrophils 5.05 Absolute Lymphocytes 0.95 L Absolute Monocytes 0.74 H Absolute Eosinophils 0.23 Absolute Basophils 0.02 PT 12.0 H INR 1.2 H APTT 27.8 Sodium 141 Potassium 4.4 Chloride 104 Carbon Dioxide 29.6 Anion Gap 7.4 BUN 30 H Creatinine 1.48 H Estimated GFR/1.73 m2 45.97 Glucose 117 H Calcium 8.9 Magnesium Total Bilirubin 0.8 AST 18 ALT 28 Alkaline Phosphatase 78 Troponin I < 0.05 NT-Pro-B Natriuret Pep 3681 H Total Protein 7.5 Albumin 3.5 Lipase 94 TSH 4.90 H Free T4 1.03 01/28/19 01/28/19 01/28/19 15:47 20:15 20:15 WBC RBC Hgb Hct MCV MCH MCHC RDW Plt Count MPV Immature Gran % Neutrophils % Lymphocytes % Monocytes % Eosinophils % Basophils % Absolute Neutrophils Absolute Lymphocytes Absolute Monocytes Absolute Eosinophils Absolute Basophils PT INR APTT Sodium 139 Potassium 4.3 Chloride 104 Carbon Dioxide 23.5 Anion Gap 11.5 H BUN 34 H Creatinine 1.47 H Estimated GFR/1.73 m2 46.33 Glucose 112 H Calcium 9.1 Magnesium 1.9 Total Bilirubin AST ALT Alkaline Phosphatase Troponin I < 0.05 NT-Pro-B Natriuret Pep Total Protein Albumin Lipase TSH Free T4 Last Vital Signs Temp 36.7 C 01/28/19 21:07 Pulse 74 01/28/19 21:57 Resp 20 01/28/19 21:07 BP 132/78 01/28/19 21:07 Pulse Ox 94 L 01/28/19 21:07
[2019-01-28 23:47] LABS: Troponin I < 0.05 ng/mL (0.00-0.06)
[2019-01-29] VITALS (10 sets, daily range): BP systolic 125–147; BP diastolic 72–86; PULSE 68–88; RESP 18–21; TEMP 36.7–37.2; O2SAT 92–95
[2019-01-29] MEDS: Levothyroxine 175 MCG TAB PO (05:05)
[2019-01-29 07:46] LABS: Anion Gap 10.7 mmol/L (3-11); BUN 34 mg/dL (7-18); CO2 27.3 mmol/L (21.0-32.0); CREATININE 1.57 mg/dL (0.70-1.30); Calcium 9.2 mg/dL (8.5-10.1); Calculated LDL 73 mg/dL; Chloride 102 mmol/L (98-107); Cholesterol 127 mg/dL (50-200); Estimated GFR 42.94 (mL/min/1.73m2); Glucose 111 mg/dL (70-100); HDL Cholesterol 31 mg/dL (40-60); Magnesium 1.6 mg/dL (1.8-2.4); Potassium 4.2 mmol/L (3.5-5.1); Sodium 140 mmol/L (136-145); Triglyceride 117 mg/dL (30-150)
[2019-01-29 07:51] LABS: Hemoglobin A1C 6.3 % (4.5-6.2)
[2019-01-29] MEDS: Normal Saline Flush 10 ML SYR IVP ×3 (08:02→16:11)
[2019-01-29] MEDS: Furosemide 20 MG/2 ML VIAL IVP ×2 (08:03→16:11)
[2019-01-29] MEDS: Metoprolol CR 25 MG TABCR PO (08:11)
[2019-01-29] MEDS: Omeprazole 20 MG CAPCR 40 MG PO (08:12)
[2019-01-29] MEDS: Losartan 50 MG TAB 100 MG PO (08:12)
[2019-01-29] MEDS: Aspirin 325 MG TAB PO (08:12)
[2019-01-29] MEDS: Potassium Chloride 20 MEQ TABCR PO (08:12)
[2019-01-29] MEDS: buPROPion-XL 150 MG TABCR 300 MG PO (08:13)
[2019-01-29] MEDS: Citalopram 20 MG TAB 40 MG PO (08:14)
[2019-01-29 08:18] LABS: NT-proBNP 3213 pg/mL
--- NOTE | 2019-01-29 08:49 | PDOC.CMIN ---
- If Service Date Differs Date of service: 01/29/19 Time of Service: 08:49 Care Management Initial Assess REASON FOR HOSPITALIZATION:: CHF, chest pain PAST MEDICAL HISTORY/PAST SURGICAL HISTORY:: SHD (arteriosclerotic heart disease) (Acute), CABG and multiple stents. CHF (congestive heart failure) (Acute), Hyperlipidemia (Acute). Hypertension (Chronic)Hypothyroidism (acquired) (Chronic). Memory changes (Acute 12/15/17), Sleep apnea (Chronic), No longer using CPAP, Spinal stenosis. Surgical procedures: Cyst in hand removed, right foot surgery, cardiac bypass PREVIOUS FUNCTIONAL STATUS/SOCIAL/FAMILY SUPPORTS:: Nitesh lives in [place], [place] with his spouse Luis whom he cares for at home with dementia. He recently moves back to [place] from [place], [place] back in September 2018. He has three living daughters and one decesased. He currently does not have any services in the home and continues to drive although he states he has been instructed to only drive short distances. He admits to having difficulty with his own memory and his daughter helps him with his finances and he and his spouses medications. CURRENT FUNCTIONAL STATUS:: Nitesh is sitting up in the chair he is alert and engaged with CM during assessment. He is open to a referral to [facility] for options support to identify services for his spouse at home. Nitesh states he understands his heart disease and he does the cooking and meals at home. He states he avoids lunch meats and other high sodium foods. CM discussed daily weights and contacting a provider when he notices a weight gain. Nitesh reports he is aware of the treatment for heart failure takes a diuretic daily. ADVANCE DIRECTIVES:: Nitesh states he has taken care of his end of life decisions. Has patient been provided with information about the portal?: Yes Did the patient sign up for the portal?: No CODE STATUS:: Full Code INSURANCE COVERAGE / FINANCIAL ISSUES:: [employer] CURRENT HOME/COMMUNITY SERVICES/EQUIPMENT:: None PRIMARY CARE PHYSICIAN:: PATIENT/FAMILY EDUCATION NEEDS:: Discharge education, limitations and follow up plan of care. including ask me three and self management. ANTICIPATED BARRIERS TO DISCHARGE:: None TRANSPORTATION:: Family to transport at time of discharrge PLAN:: Nitesh will be discharged home when medically ready. CM will refer him to home [facility] for options to assess services at home. CM will continue to provide support discharge planning and disposition.
--- NOTE | 2019-01-29 09:00 | DI.US_ITS ---
APPROVED REPORT EXAM: Comprehensive 2D, Doppler, and color-flow Echocardiogram Patient Location: In-Patient Manager Food Safety: CONNOR Mckeon (AE) Rhythm: Atrial Flutter Indications: chf exacerbation. chest pain Left Ventricle LV is mildly enlarged. Low normal estimated EF 50 to 55% Mild concentric left ventricular hypertrophy . There is normal LV segmental wall motion. Unable to fully delineate diastolic function due to a rhy thm. Patient likely has elevated filling pressures 50-55% Right Ventricle dilated in size. function is mild to moderately reduced Right ventricle is mildly hypokinetic. Atria Left atrium is moderately dilated. Right atrium is mildly dilated. cannot r/o PFO ASD Aortic Valve sclerotic probably trileaflet. There is no aortic valvular stenosis. No aortic regurgitation is prese nt. Mitral Valve Mitral valve leaflets are mildly thickened with tethering of the posterior mitral leaflet. Moderate m itral regurgitation. Eccentric posterior directed jet Tricuspid Valve dilated annulus, mildly thickened valve. TR is severe with hepatic reversal of flow. RVSP est to be 5 0+RAP TR max 3.8m/s Pulmonic Valve Not well-visualized Great Vessels normal size aortic root. dilated mildly. collapses 50% which corresponds to an RA pressure of about 8 mmHg Pericardium No pericardial effusion. cannot r/o pleural effusion 2D Dimensions IVSd 1.3 cm M: 0.6-1.2 LA Volume Index A4C 71.0 mL/m2 PWd 1.4 cm M: 0.6 - 1.2 LA Area A4C 41.0 cm2 LVDd 5.4 cm M: 4.2 - 5.9 LVDs 4.3 cm M: 2.5 - 4.0 Aortic Root 3.6 cm M: 3.1 - 3.7 Left Atrium 4.8 cm M: 3.0 - 4.0 RA Area A4C 27.0 cm2 LVOT 2.2 cm (M/F) 1.5-2.5 LVEF (Ferrera's) 56.6 % M: 52 - 72 FS 19.9 % LV Diastology E Decel Time 167.0 (160-240 msec) Aortic Valve LVOT Area 3.6 cm2 JONEL 1.7 cm2 LVOT Peak Celio. 0.7 m/s JONEL Index 0.6 cm2/m2 LVOT Peak Gr. 1.7 mmHg LVOT Mean Gr. 1.0 mmHg LVOT VTI 0.1 m AO VTI 0.3 (0.18-0.25 m) JONEL (VTI) 0.5 (2.5-4.5 cm2) Mitral Valve MV Decel. Time 166.7 (160-240 msec) MV PHT 48.4 msec MVA PHT 4.5 cm2 Tricuspid Valve TR P. Velocity 3.5 m/s TR P. Gradient 50.1 mmHg Conclusion This study was limited by poor windows. Left Ventricle : LV is mildly enlarged. Mild concentric left ventricular hypertrophy. Unable to fully delineate diastolic function due to a rhythm. Patient likely has elevated filling pressures Low nor mal estimated EF 50 to 55% There is normal LV segmental wall motion. 50-55% Right Ventricle : dilated in size. function is mild to moderately reduced Right ventricle is mildly h ypokinetic. Atria : Left atrium is moderately dilated. Right atrium is mildly dilated. Aortic Valve : sclerotic probably trileaflet. No aortic regurgitation is present. There is no aortic valvular stenosis. Mitral Valve : Mitral valve leaflets are mildly thickened with likely tethering of the posterior mitr al leaflet. Moderate mitral regurgitation. Eccentric posterior directed jet with significant Coanda e ffect Tricuspid Valve : dilated annulus, mildly thickened valve. TR is severe with hepatic reversal of flow . RVSP est to be >50mmhg. TR max 3.8m/s Great Vessels : normal size aortic root. Pericardium : No pericardial effusion. The IVC is mildly dilated with greater than 50% collapse. This corresponds to an estimated RA pressu re of 8 mmHg
[2019-01-29] MEDS: Normal Saline 500 ML IV (10:38)
[2019-01-29] MEDS: MAGNESIUM SULFATE 2 GM/50 ML BAG IVPB (10:41)
--- NOTE | 2019-01-29 15:53 | PGE_ITS ---
Date of Service Date of service: 01/29/19 Time of Service: 15:53 Assessment and Plan Assessment and plan (1) CHF (congestive heart failure): Status: Acute Assessment and plan: Evidence of LVH and likely Diastolic Dysfunction (evidence of elevated filling pressures) and at minimum Moderate MR. Mr. Mg also has RV Systolic failure, dilated RV, and severe TR in the setting of untreated DARRIN. - Currently diuresing well. Continue IV Furosemide 20mg BID, and monitor strict I/O's. Continue fluid restriction, low sodium diet. - Currently on BB, ASA, Statin. Discussed role of untreated DARRIN in PHTN and right sided CHF. Needs sleep medicine follow-up as outpatient. - Ruled out with serial troponins - highly doubt ACS, but may still benefit from outpatient stress testing and local cardiology follow-up. History of CAD, with remote vascularization. Qualifiers: Heart failure chronicity: acute on chronic Heart failure type: unspecified Qualified Code(s): I50.9 - Heart failure, unspecified (2) ASHD (arteriosclerotic heart disease): Status: Acute Assessment and plan: As above. (3) DARRIN (obstructive sleep apnea): Status: Chronic Assessment and plan: Untreated due to mask discomfort. Consider outpatient sleep medicine follow-up. (4) Atrial fibrillation/flutter: Status: Acute Assessment and plan: ECG being interpreted as Atrial Flutter, with prior history of paroxysmal Afib. [id number] score qualifies patient for anticoagulation, but he has a history of somewhat frequent falls. Needs discussion regardings risks vs. benefits of anticoagulation therapy, and discussion regarding whether anticoagulation is appropriate for him. Will defer to patient's PCP. (5) Hypothyroidism (acquired): Status: Chronic Assessment and plan: TSH minimally elevated with a normal FT4. Continue repacement therapy. (6) CKD (chronic kidney disease): Status: Acute Assessment and plan: Need to monitor renal function carefully given administration of IV contrast in the ED, and current need for diuresis. Holding ARB. (7) DVT prophylaxis: Status: Acute Assessment and plan: Noted allergy to heparin. Continue SCDs. Subjective Subjective Interval history since last seen: 79 year old man with a prior history of CAD s/p CABG, admitted from [facility] Emergency Department 01/28 with a diagnosis of acute CHF exacerbation. Mr. Mg has a past Medical History significant for CAD s/p CABG X3 over 30 years ago. He also has a history of DARRIN not well treated as an outpatient due to mask intolerance, HTN, CKD, Dyslipidemia, Hypothyroidism, and CHF. He also noted frequent falls over the past few months, attributing them to imbalance and a new living situation since moving back to [place]. He has a diagnosis of Paroxysmal Afib, not on anticoagulation currently. The patient presented to the ED with reported progressive WADE and chest pressure for over the past several months, worsening significantly over the past few weeks, culminating in an inability to ambulate without significant dyspnea. He has also noted worsening LE edema. Work-up included CXR that showed CHF, CTA of the chest, abdomen and pelvis that confirmed CHF and volume overload, elevated pro-BNP, elevated creatinine that appeared unchanged from prior, and a minimally elevated TSH with a normal FT4. The patient was treated with IV Diuretic, and admitted for further evaluation and treatment. The patient has diuresed well overnight and reports vastly improved dyspnea and resolved chest discomfort. Her ECHO was performed this morning. No overnight events reported. Remains afebrile. Exam Narrative Exam Narrative: General: Patient appears comfortable, AAOX3, NAD Neck: Supple CV: Regular, nontachycardic, 3/6 LLSB murmur, S1S2, No rubs, murmurs, or gallops. Pulmonary: Clear to auscultation bilaterally, no crackles, wheezing, or rhonchi Abdomen: + Bowel Sounds, soft, nontender, nondistended Vascular: No lower extremity edema Neurologic: CN II-XII grossly intact. No focal deficits. Psych: Normal mood and affect. Objective Objective Clinical Data: Abnormal lab results 01/28/19 01/28/19 01/28/19 Range/Units 15:47 15:47 15:47 RBC 3.69 L (4.50-6.00) m/cumm Hgb 11.8 L (13.5-17.5) g/dL Hct 36.1 L (40.0-50.0) % MCV 97.8 H (80-95) fL RDW 14.2 H (11.8-14.1) % Absolute Lymphocytes 0.95 L (1.2-3.4) k/cumm Absolute Monocytes 0.74 H (0.11-0.7) k/cumm PT 12.0 H (9.3-11.0) sec INR 1.2 H (0.9-1.1) Anion Gap (3-11) mmol/L BUN 30 H (7-18) mg/dL Creatinine 1.48 H (0.70-1.30) mg/dL Glucose 117 H (70-100) mg/dL Hemoglobin A1c (4.5-6.2) % Magnesium (1.8-2.4) mg/dL NT-Pro-B Natriuret Pep 3681 H ( - 299) pg/mL HDL Cholesterol (40-60) mg/dL TSH 4.90 H (0.36-3.74) uIU/mL 01/28/19 01/29/19 01/29/19 Range/Units 20:15 07:02 07:02 RBC (4.50-6.00) m/cumm Hgb (13.5-17.5) g/dL Hct (40.0-50.0) % MCV (80-95) fL RDW (11.8-14.1) % Absolute Lymphocytes (1.2-3.4) k/cumm Absolute Monocytes (0.11-0.7) k/cumm PT (9.3-11.0) sec INR (0.9-1.1) Anion Gap 11.5 H (3-11) mmol/L BUN 34 H 34 H (7-18) mg/dL Creatinine 1.47 H 1.57 H (0.70-1.30) mg/dL Glucose 112 H 111 H (70-100) mg/dL Hemoglobin A1c 6.3 H (4.5-6.2) % Magnesium 1.6 L (1.8-2.4) mg/dL NT-Pro-B Natriuret Pep 3213 H ( - 299) pg/mL HDL Cholesterol 31 L (40-60) mg/dL TSH (0.36-3.74) uIU/mL Vital Signs Temperature 36.7 C 01/29/19 11:20 Temperature Source Tympanic 01/29/19 11:20 Pulse 70 01/29/19 14:56 Pulse Rhythm Regular 01/29/19 08:17 Pulse 73 01/28/19 19:03 Respiratory Rate 18 01/29/19 11:20 Respiratory Effort Non-Labored 01/29/19 08:17 Respiratory Depth Normal 01/29/19 08:17 Respiratory Pattern Normal 01/29/19 08:17 Blood Pressure 147/86 H 01/29/19 11:20 Blood Pressure Mean 156 01/28/19 19:03 Blood Pressure Position Sitting 01/28/19 15:40 Pulse Oximetry 94 L 01/29/19 11:20 Oxygen Delivery Method Room Air 01/29/19 11:20 Oxygen Flow Rate 0 01/29/19 11:20 Pain Level 0 01/29/19 11:20 Intake & Output 01/28/19 01/29/19 01/29/19 23:59 11:59 23:59 Intake Total 120 / 120 472 / 712 240 / 712 Output Total 1190 / 1190 3050 / 3050 Balance -1070 / -1070 -2578 / -2338 240 / -2338 Weight 140.2 kg 136.9 kg Intake: IV 12 Oral 100 / 100 460 / 700 240 / 700 Output: Urine 1190 / 1190 3050 / 3050 Other: Urine Color Yellow Urine Appearance Clear Urine Odor Normal Comment VOIDED IN ECHO Voiding Methods Toilet # Voids 1 Laboratory Results WBC 7.03 k/cumm (4.4-10.8) 01/28/19 15:47 RBC 3.69 m/cumm (4.50-6.00) L 01/28/19 15:47 Hgb 11.8 g/dL (13.5-17.5) L 01/28/19 15:47 Hct 36.1 % (40.0-50.0) L 01/28/19 15:47 MCV 97.8 fL (80-95) H 01/28/19 15:47 MCH 32.0 pg (27.0-33.0) 01/28/19 15:47 MCHC 32.7 g/dL (32.0-36.0) 01/28/19 15:47 RDW 14.2 % (11.8-14.1) H 01/28/19 15:47 Plt Count 261 x1000/uL (130-400) 01/28/19 15:47 MPV 9.8 fL (8.0-11.0) 01/28/19 15:47 Immature Gran % 0.6 01/28/19 15:47 Neutrophils % 71.8 01/28/19 15:47 Lymphocytes % 13.5 01/28/19 15:47 Monocytes % 10.5 01/28/19 15:47 Eosinophils % 3.3 01/28/19 15:47 Basophils % 0.3 01/28/19 15:47 Absolute Neutrophils 5.05 k/cumm (1.2-6.7) 01/28/19 15:47 Absolute Lymphocytes 0.95 k/cumm (1.2-3.4) L 01/28/19 15:47 Absolute Monocytes 0.74 k/cumm (0.11-0.7) H 01/28/19 15:47 Absolute Eosinophils 0.23 k/cumm (0.0-0.7) 01/28/19 15:47 Absolute Basophils 0.02 k/cumm (0.0-0.2) 01/28/19 15:47 PT 12.0 sec (9.3-11.0) H 01/28/19 15:47 INR 1.2 (0.9-1.1) H 01/28/19 15:47 APTT 27.8 sec (21.0-31.4) 01/28/19 15:47 Sodium 140 mmol/L (136-145) 01/29/19 07:02 Potassium 4.2 mmol/L (3.5-5.1) 01/29/19 07:02 Chloride 102 mmol/L (98-107) 01/29/19 07:02 Carbon Dioxide 27.3 mmol/L (21.0-32.0) 01/29/19 07:02 Anion Gap 10.7 mmol/L (3-11) 01/29/19 07:02 BUN 34 mg/dL (7-18) H 01/29/19 07:02 Creatinine 1.57 mg/dL (0.70-1.30) H 01/29/19 07:02 Estimated GFR/1.73 m2 42.94 (mL/min/1.73m2) 01/29/19 07:02 Glucose 111 mg/dL (70-100) H 01/29/19 07:02 Hemoglobin A1c 6.3 % (4.5-6.2) H 01/29/19 07:02 Calcium 9.2 mg/dL (8.5-10.1) 01/29/19 07:02 Magnesium 1.6 mg/dL (1.8-2.4) L 01/29/19 07:02 Total Bilirubin 0.8 mg/dL (0.2-1.0) 01/28/19 15:47 AST 18 U/L (15-37) 01/28/19 15:47 ALT 28 U/L (16-63) 01/28/19 15:47 Alkaline Phosphatase 78 U/L (46-116) 01/28/19 15:47 Troponin I < 0.05 ng/mL (0.00-0.06) 01/28/19 23:25 NT-Pro-B Natriuret Pep 3213 pg/mL (-299) H 01/29/19 07:02 Total Protein 7.5 g/dL (6.4-8.2) 01/28/19 15:47 Albumin 3.5 g/dL (3.4-5.0) 01/28/19 15:47 Triglycerides 117 mg/dL (30-150) 01/29/19 07:02 Total Cholesterol 127 mg/dL (50-200) 01/29/19 07:02 LDL Cholesterol, Calc 73 mg/dL 01/29/19 07:02 HDL Cholesterol 31 mg/dL (40-60) L 01/29/19 07:02 Lipase 94 U/L (73-393) 01/28/19 15:47 TSH 4.90 uIU/mL (0.36-3.74) H 01/28/19 15:47 Free T4 1.03 ng/dL (0.76-1.46) 01/28/19 15:47
--- NOTE | 2019-01-29 16:40 | PHARADMIT ---
Addendum entered by Carey Rees 01/30/19 14:09: Pharmacy Note Subjective fine crackles per shift report, Sats room air 92-93% Objective VS good, weight down 1.7kg, I/O negative, labs and lytes good SCr bumped a little 1.63 Assessment Lasix to oral ASA 325mg daily Afib/Aflutter: no anticoagulation due to falls, will need to be reassessed as outpt, allergic to heparin Plan Anticipate discharge soon Original Note: Admission Pharmacy Clinical Review CHF, CHEST PAIN Code Status Full Code Current Weight 136.9 kg Renally Cleared and Narrow Therapeutic Index Meds Crcl ~55.6 mL/min using adjusted body weight current meds okay QTc Value / Action Taken QTc 461 BP Control, Fever BP 127/73 afebrile Electrolytes reviewed mag 1.6 DVT Prophylaxis none Opiate Usage / Scheduled Bowel Regimen Ordered no/prn Plt/SCr for Heparin / Enoxaparin plt 261 SCr 1.57 INR for Warfarin n/a H/H stable, WBC/Bands h/h 11.8/36.1 wbc 7.03 Antibiotic appropriateness none Cultures and Sensitivities none Surgical ABX d/c within 24 hr n/a DM control / Insulin Dosing Bg 111 none Heart Failure (Check EF%) (NOHEMI's, B-Block, Diuretics) furosemide, metoprolol IV to PO Switch n/a Home Meds Reviewed -cyclobenzaprine may enhance the ulcerogenic effect of potassium chloride, recommended to avoid this combination -bupropion may enhance the adverse/toxic effects of citalopram (seizures, serotonin syndrome) -omeprazole may increase the serum concentration of citalopram; limit citalopram to 20 mg if used with omeprazole -multiple RELIEF DOCKING MASTER depressants: hydrocodone/APAP, cyclobenzaprine, lorazepam -increased bleed risk due to use of ibuprofen, aspirin, and citalopram Home Meds Not Ordered hydrocodone/APAP, ibuprofen, lorazepam, losartan Comments
--- NOTE | 2019-01-29 16:48 | IN_ITS ---
Date of service: 01/29/19 PT Notes Inpatient Physical Therapy Evaluation Date: 01/29/2019 Referring Doctor: Tom Azevedo MD PT Orders: PT CONSULT: Limited ability Precautions: Fall. Standard. Activity as tolerated. Patient Profile/Admitting Diagnosis: Patient is a 79-year-old male admitted to the emergency department on 01/28/2019 with chief complaints of shortness of breath and chest pain. Patient was diagnosed with Exertional chest pain, CHF exacerbation, and Atherosclerotic Heart Disease. Objective: Medical History ASHD (arteriosclerotic heart disease) (Acute) CABG and multiple stents CHF (congestive heart failure) (Acute) Hyperlipidemia (Acute) Hypertension (Chronic) Hypothyroidism (acquired) (Chronic) Memory changes (Acute 12/15/17) Sleep apnea (Chronic) No longer using CPAP - sent back Spinal stenosis (Chronic 10/04/13) multiple procedures: epidural; operations Stress at home (Acute) -early dementia, daughter-breast cancer. Surgical History Cyst in hand (Acute) Status post excision on 10/12/2018 on palmar aspect of right hand. foot surgery heart bypass left great toe spurs/osteoarthritis Social History/Home Situation: Patient lives in an apartment on the first floor with a ramp to get in. Equipment Owned/DME: None Subjective: Patient denies any pain or discomfort including angina, and dyspnea. He is agreeable to a PT evaluation but is unsure that he needs one. ?No one told me about it.? He is kind and energetic. General Observation: Patient is seen reclined in a chair with a disconnected IV in his R UE and bilateral slipper socks. Mental Status: Alert and oriented x 4 Pain: None ROM: Right Lower Extremity: Hip flexion WFL. Hip abduction WFL. Knee flexion WFL. Ankle dorsiflexion WFL. Ankle plantarflexion WFL. Left Lower Extremity: Hip flexion WFL. Hip abduction WFL. Knee flexion WFL. Ankle dorsiflexion WFL. Ankle plantarflexion WFL. Strength: Right Lower Extremity: Hip flexors 5/5. Hip abductors 5/5. Knee flexors 5/5. Knee extensors 5/5. Ankle dorsiflexors 5/5. Ankle plantarflexors 5/5. Left Lower Extremity:Hip flexors 5/5. Hip abductors 5/5. Knee flexors 5/5. Knee extensors 5/5. Ankle dorsiflexors 5/5. Ankle plantarflexors 5/5. Bed Mobility/Transfers: Rolling Independent Supine to sit Independent Sit to supine Independent Sit to stand Independent Stand to sit Independent Bed to chair Supervision Chair to bed Supervision Gait: Patient ambulated with a reciprocal gait and supervision without any assistive device. A wheelchair follow was done in case symptoms of chest pain and SOB exacerbated. He walked confidently with slight toe out and mild trunk sway but denied SOB and angina precluding the need to sit down after 150 feet of level surface ambulation. Balance: Static Sitting: Normal Dynamic Sitting: Normal Static Standing: Normal Dynamic Standing: Normal Special Tests: Mobility Limitations Standardized Measure [facility] AM-PAC 6 clicks Basic Mobility Inpatient Short Form: Raw Score: 24 CMS Score: 0% Informed Consent/Education: Patient instructed in purpose of PT consult/evaluation only. Assessment: Patient is a 79 year old male admitted to the ED with angina and dyspnea. Since his admission he admitted he is much more able to ambulate. During ambulation, he did not report shortness of breath or chest pain. He walked very confidently and with only slight deviations. Patient presents with clinical signs and symptoms consistent with current/admitting diagnoses that have resulted to mobility limitations, gait instability, generalized weakness, and impairment of motor control as demonstrated by impaired activity tolerance. Impairments are contributing to the following functional limitations: 1. Increase completion time for mobility ADL performance 2. Increased fall risk Patient is assessed as a 13190 moderate complexity based on the following: History: Patient with diagnosis of exertional chest pain, CHF exacerbation, and atherosclerotic Heart Disease. Examination: Demonstrable impairment in strength, balance, and range of motion with underlying impairments and functional limitations as documented above Presentation: Evolving Decision Makin Moderate complexity Goals: Goals X3 days 1. Independent gait on level surface with use of least restrictive device for at least 100 feet without report of pain nor dyspnea MET 2. Independent with home exercise program MET 3. Normal static and dynamic standing balance/tolerance MET Plan of Care/Treatment Plan: Based on evaluation findings, patient does not require skilled PT services. DISCHARGE RECOMMENDATIONS: Patient is to be discharged to home under the care of his . Patient may benefit from participation in an out-patient cardiac rehabilitation program for continued conditioning. TREATMENT CODE/TIME: 97742 x 24 minutes beginning at 8:36 AM. Thank you very much for this referral. Won Henderson, [facility] With the supervision of: Debora Ruvalcaba PT, DPT, CLT [facility]
[2019-01-29 16:49] LABS: Troponin I < 0.05 ng/mL (0.00-0.06)
[2019-01-29] MEDS: Rosuvastatin 10 MG TAB 20 MG PO (20:05)
[2019-01-29] MEDS: Nystatin POWDER 60 GM JAR TP (20:05)
[2019-01-30] VITALS (12 sets, daily range): BP systolic 103–134; BP diastolic 48–76; PULSE 65–82; RESP 16–20; TEMP 36.4–37.4; O2SAT 92–96
[2019-01-30] MEDS: Levothyroxine 175 MCG TAB PO (06:20)
[2019-01-30 07:38] LABS: Abs Immature Grans 0.04 k/cumm (0.0-0.09); Absolute Basophil Count 0.02 k/cumm (0.0-0.2); Absolute Eosinophil Count 0.34 k/cumm (0.0-0.7); Absolute Lymphocyte Count 1.01 k/cumm (1.2-3.4); Absolute Monocyte Count 1.06 k/cumm (0.11-0.7); Absolute Neutrophil Count 6.19 k/cumm (1.2-6.7); Basophils % 0.2; Eosinophils % 3.9; HCT 36.4 % (40.0-50.0); HGB 11.9 g/dL (13.5-17.5); Immature Grans % 0.5; Lymphocytes % 11.7; Mean Corp. HGB Concentration 32.7 g/dL (32.0-36.0); Mean Corpuscular Hemoglobin 31.6 pg (27.0-33.0); Mean Corpuscular Volume 96.8 fL (80-95); Mean Platelet Volume 9.9 fL (8.0-11.0); Monocytes % 12.2; Neutrophils % 71.5; Platelet Count 283 x1000/uL (130-400); RBC 3.76 m/cumm (4.50-6.00); RBC Distribution Width 14.4 % (11.8-14.1); White Blood Cell Count 8.66 k/cumm (4.4-10.8)
[2019-01-30] MEDS: Omeprazole 20 MG CAPCR 40 MG PO (07:39)
[2019-01-30] MEDS: buPROPion-XL 150 MG TABCR 300 MG PO (07:39)
[2019-01-30] MEDS: Normal Saline Flush 10 ML SYR IVP (07:40)
[2019-01-30] MEDS: Aspirin 325 MG TAB PO (07:40)
[2019-01-30] MEDS: Citalopram 20 MG TAB 40 MG PO (07:40)
[2019-01-30] MEDS: Metoprolol CR 25 MG TABCR PO (07:40)
[2019-01-30] MEDS: Furosemide 20 MG/2 ML VIAL IVP (07:40)
[2019-01-30 07:41] LABS: Anion Gap 10.9 mmol/L (3-11); BUN 37 mg/dL (7-18); CO2 27.1 mmol/L (21.0-32.0); CREATININE 1.63 mg/dL (0.70-1.30); Calcium 9.1 mg/dL (8.5-10.1); Chloride 101 mmol/L (98-107); Estimated GFR 41.12 (mL/min/1.73m2); Glucose 115 mg/dL (70-100); Magnesium 1.9 mg/dL (1.8-2.4); Potassium 4.2 mmol/L (3.5-5.1); Sodium 139 mmol/L (136-145)
--- NOTE | 2019-01-30 10:06 | DI.CT_ITS ---
EXAM: CT HEAD WO CLINICAL HISTORY: frequent episodes of unresponsiveness. TECHNIQUE: The exam was performed according to the usual protocol. COMPARISON: CT HEAD WO from 01/20/2019 FINDINGS: Atrophic changes consistent with age are demonstrated and there are findings consistent with small ve ssel disease. There is no evidence of an intra or extra-axial hemorrhage or mass. There is no evidenc e of skull fracture. There is chronic appearing left maxillary sinus disease. IMPRESSION: No evidence of an acute intracranial process.
[2019-01-30] MEDS: Nystatin POWDER 60 GM JAR TP ×2 (10:14→17:55)
--- NOTE | 2019-01-30 13:14 | CMPROGNOTE_ITS ---
Care Management Progress Note S/O: Nitesh continues to be closely monitored and treated for CHF. His daughters are at his bedside and forthcoming with their concerns. Due to their concerns for narcolepsy and RN observations of possible DARRIN, paired with Nitesh's report of increased hallucinations since starting wellbutrin; MRI, Neurology consult and EEG ordered per MD. Per MD, Nitesh is a primary caregiver for his who presents well but is struggling with dementia. CM continues to follow. A: 79 year old male admitted to [facility] 01/28/19 for CHF, Chest Pain P: Nitesh will discharge home when ready, per MD. CM will refer him to home [facility] for options counseling to assess services needs in home setting. CM continues to provide support central to discharge planning and disposition.
--- NOTE | 2019-01-30 13:46 | W.PM.PROGNOT ---
Date of Service Date of service: 01/30/19 Time of Service: 13:46 Assessment and Plan Assessment and plan (1) CHF (congestive heart failure): Status: Acute Assessment and plan: Acute on chronic, combined diastolic and R-sided (cor pulmonale). - transition lasix to PO, offer BiPAP tonight, and continue to monitor kidney function. - continue to monitor daily weights, I/O's, and continue fluid restriction of 2000 cc/day. - I explained to the patient the importance of using BiPAP as well as the need to follow up with a grinder set up operator centerless - Continue BB, ASA, Statin. Lipids at goal. Qualifiers: Heart failure type: unspecified Heart failure chronicity: acute on chronic Qualified Code(s): I50.9 - Heart failure, unspecified (2) ASHD (arteriosclerotic heart disease): Status: Acute Assessment and plan: As above. No ACS. lipids at goal. Follow up as outpatient. (3) DARRIN (obstructive sleep apnea): Status: Chronic Assessment and plan: Patient's machine is still in [place]. He did have a repeat sleep study last year. We spoke about the importance of transitioning the care to a respiratory company here as well as pulmonary follow up. (4) Atrial fibrillation/flutter: Status: Acute Assessment and plan: Rate has been controlled. No change in tx. Continue to monitor on tele. Not on anticoagulation due to falls - will defer to PCP. (5) CKD (chronic kidney disease): Status: Acute Assessment and plan: With mild YVETTE (unclear if it's due to IV contrast, diuresis or perhaps urinary retention). Check bladder scans. Transition lasix to Po and effectively decrease the dose. Continue to hold ARB. (6) Hypothyroidism (acquired): Status: Chronic Assessment and plan: TSH minimally elevated with a normal FT4. Continue repacement therapy. (7) DVT prophylaxis: Status: Acute Assessment and plan: Allergic to heparin. Continue SCDs and TEDs. Subjective Subjective Interval history since last seen: Mr Mg states he feels better today - today is his best day yet in a long long time. Denies dizziness, chest pain, shortness of breath at rest or with activity, nausea, vomiting. He states he slept in bed and in a recliner - the angle of the bed was at least 45 degrees by my estimation. He is interested in going home today, but agrees to stay until tomorrow. Exam Narrative Exam Narrative: General: very pleasant obese male, A&Ox3, slightly [place], comfortable sitting in the recliner on room air, no tachypnea HEENT: EOMI, MMM Heart: irregularly irregular rhythm, no m/r/g Lungs: crackles at B bases GI: abdomen is soft, nontender, nondistneded Extremities: wearing TEDs B - even through TEDs, has 1+ edema B Objective Objective Clinical Data: Abnormal lab results 01/30/19 01/30/19 Range/Units 06:55 06:55 RBC 3.76 L (4.50-6.00) m/cumm Hgb 11.9 L (13.5-17.5) g/dL Hct 36.4 L (40.0-50.0) % MCV 96.8 H (80-95) fL RDW 14.4 H (11.8-14.1) % Absolute Lymphocytes 1.01 L (1.2-3.4) k/cumm Absolute Monocytes 1.06 H (0.11-0.7) k/cumm BUN 37 H (7-18) mg/dL Creatinine 1.63 H (0.70-1.30) mg/dL Glucose 115 H (70-100) mg/dL Vital Signs Temperature 36.6 C 01/30/19 11:37 Temperature Source Tympanic 01/30/19 11:37 Pulse 66 01/30/19 11:37 Pulse Rhythm Irregular 01/30/19 07:30 Pulse 73 01/28/19 19:03 Respiratory Rate 19 01/30/19 11:37 Respiratory Effort 01/30/19 07:30 Respiratory Depth Normal 01/30/19 07:30 Respiratory Pattern Normal 01/30/19 07:30 Blood Pressure 124/63 01/30/19 11:37 Blood Pressure Mean 156 01/28/19 19:03 Blood Pressure Position Sitting 01/28/19 15:40 Pulse Oximetry 94 L 01/30/19 11:37 Oxygen Delivery Method Room Air 01/30/19 11:37 Oxygen Flow Rate 0 01/30/19 11:37 Pain Level 0 01/30/19 11:37 Intake & Output 10/04/19 10/05/19 10/05/19 23:59 11:59 23:59 Intake Total 728.75 / 1200.75 730 / 1090 360 / 1090 Output Total 1100 / 4150 1999 Balance -371.25 / -2949.25 -1270 / -910 360 / -910 Weight 135.2 kg Intake: IV 38.75 / 50.75 Oral 690 / 1150 720 / 1080 360 / 1080 Output: Urine 1100 / 4150 1999 Other: Urine Color Yellow Yellow Urine Appearance Clear Clear Urine Odor None Comment Patient goes to bathroom independently patient use toilet independenty and states that he has been using it frequently Voiding Methods Toilet Toilet Laboratory Results WBC 8.66 k/cumm (4.4-10.8) 01/30/19 06:55 RBC 3.76 m/cumm (4.50-6.00) L 01/30/19 06:55 Hgb 11.9 g/dL (13.5-17.5) L 01/30/19 06:55 Hct 36.4 % (40.0-50.0) L 01/30/19 06:55 MCV 96.8 fL (80-95) H 01/30/19 06:55 MCH 31.6 pg (27.0-33.0) 01/30/19 06:55 MCHC 32.7 g/dL (32.0-36.0) 01/30/19 06:55 RDW 14.4 % (11.8-14.1) H 01/30/19 06:55 Plt Count 283 x1000/uL (130-400) 01/30/19 06:55 MPV 9.9 fL (8.0-11.0) 01/30/19 06:55 Immature Gran % 0.5 01/30/19 06:55 Neutrophils % 71.5 01/30/19 06:55 Lymphocytes % 11.7 01/30/19 06:55 Monocytes % 12.2 01/30/19 06:55 Eosinophils % 3.9 01/30/19 06:55 Basophils % 0.2 01/30/19 06:55 Absolute Neutrophils 6.19 k/cumm (1.2-6.7) 01/30/19 06:55 Absolute Lymphocytes 1.01 k/cumm (1.2-3.4) L 01/30/19 06:55 Absolute Monocytes 1.06 k/cumm (0.11-0.7) H 01/30/19 06:55 Absolute Eosinophils 0.34 k/cumm (0.0-0.7) 01/30/19 06:55 Absolute Basophils 0.02 k/cumm (0.0-0.2) 01/30/19 06:55 PT 12.0 sec (9.3-11.0) H 01/28/19 15:47 INR 1.2 (0.9-1.1) H 01/28/19 15:47 APTT 27.8 sec (21.0-31.4) 01/28/19 15:47 Sodium 139 mmol/L (136-145) 01/30/19 06:55 Potassium 4.2 mmol/L (3.5-5.1) 01/30/19 06:55 Chloride 101 mmol/L (98-107) 01/30/19 06:55 Carbon Dioxide 27.1 mmol/L (21.0-32.0) 01/30/19 06:55 Anion Gap 10.9 mmol/L (3-11) 01/30/19 06:55 BUN 37 mg/dL (7-18) H 01/30/19 06:55 Creatinine 1.63 mg/dL (0.70-1.30) H 01/30/19 06:55 Estimated GFR/1.73 m2 41.12 (mL/min/1.73m2) 01/30/19 06:55 Glucose 115 mg/dL (70-100) H 01/30/19 06:55 Hemoglobin A1c 6.3 % (4.5-6.2) H 01/29/19 07:02 Calcium 9.1 mg/dL (8.5-10.1) 01/30/19 06:55 Magnesium 1.9 mg/dL (1.8-2.4) 01/30/19 06:55 Total Bilirubin 0.8 mg/dL (0.2-1.0) 01/28/19 15:47 AST 18 U/L (15-37) 01/28/19 15:47 ALT 28 U/L (16-63) 01/28/19 15:47 Alkaline Phosphatase 78 U/L (46-116) 01/28/19 15:47 Troponin I < 0.05 ng/mL (0.00-0.06) 01/29/19 16:21 NT-Pro-B Natriuret Pep 3213 pg/mL (-299) H 01/29/19 07:02 Total Protein 7.5 g/dL (6.4-8.2) 01/28/19 15:47 Albumin 3.5 g/dL (3.4-5.0) 01/28/19 15:47 Triglycerides 117 mg/dL (30-150) 01/29/19 07:02 Total Cholesterol 127 mg/dL (50-200) 01/29/19 07:02 LDL Cholesterol, Calc 73 mg/dL 01/29/19 07:02 HDL Cholesterol 31 mg/dL (40-60) L 01/29/19 07:02 Lipase 94 U/L (73-393) 01/28/19 15:47 TSH 4.90 uIU/mL (0.36-3.74) H 01/28/19 15:47 Free T4 1.03 ng/dL (0.76-1.46) 01/28/19 15:47 Tele: Aflutter, 70-80's, 2:1 block
[2019-01-30 15:16] LABS: Troponin I < 0.05 ng/mL (0.00-0.06)
[2019-01-30] MEDS: Furosemide 20 MG TAB PO (16:24)
--- NOTE | 2019-01-30 16:35 | NUR.NOTE ---
Nursing Note: Patient c/o decreased depth perception. Patient leaning back in his recliner states that he should be able to touch the handrail of his bed which is approximately 2 feet away from his outreached hand. Family came to the desk just after this RN left the room to state that the patient is now c/o double vision. This RN immediately entered the room and asked the patient if he was seeing double at that time and he said no. Clinical coordinator notified who in turn notified the MD. CHICO hanna
--- NOTE | 2019-01-30 17:06 | DI.VRAD_ITS ---
PROCEDURE INFORMATION: Exam: CT Head without contrast Exam date and time: 01/30/2019 2:55 PM Clinical history: 79 years old, male; Altered mental status/memory loss TECHNIQUE: Imaging protocol: Computed tomography of the head without contrast. COMPARISON: CT HEAD WO 01/20/2019 1:35 PM FINDINGS: Mild chronic appearing white matter changes of probable small vessel disease. No evidence of hemorrhage. No mass effect. No acute intracranial abnormality. Chronic appearing left maxillary sinus disease. IMPRESSION: No evidence of acute intracranial process. Dictated and Authenticated by: Harpal Harper MD. Ordering:FELICIA Pugh MD
[2019-01-30] MEDS: Rosuvastatin 10 MG TAB 20 MG PO (20:04)
[2019-01-30 23:08] LABS: Troponin I < 0.05 ng/mL (0.00-0.06)
[2019-01-31] VITALS (8 sets, daily range): BP systolic 118–139; BP diastolic 68–78; PULSE 65–75; RESP 18–20; TEMP 36.4–36.8; O2SAT 93–96
[2019-01-31] MEDS: Levothyroxine 175 MCG TAB PO (05:51)
[2019-01-31 07:21] LABS: Anion Gap 8.5 mmol/L (3-11); BUN 34 mg/dL (7-18); CO2 30.5 mmol/L (21.0-32.0); CREATININE 1.59 mg/dL (0.70-1.30); Calcium 8.9 mg/dL (8.5-10.1); Chloride 102 mmol/L (98-107); Estimated GFR 42.32 (mL/min/1.73m2); Glucose 114 mg/dL (70-100); Potassium 4.1 mmol/L (3.5-5.1); Sodium 141 mmol/L (136-145)
[2019-01-31 07:32] LABS: Magnesium 2.1 mg/dL (1.8-2.4)
[2019-01-31 07:33] LABS: Troponin I < 0.05 ng/mL (0.00-0.06)
[2019-01-31] MEDS: Furosemide 20 MG TAB PO ×2 (07:56→16:53)
[2019-01-31] MEDS: Citalopram 20 MG TAB 40 MG PO (07:56)
[2019-01-31] MEDS: Metoprolol CR 25 MG TABCR PO (07:57)
[2019-01-31] MEDS: Aspirin 325 MG TAB PO (07:59)
[2019-01-31] MEDS: Omeprazole 20 MG CAPCR 40 MG PO (07:59)
[2019-01-31] MEDS: Potassium Chloride 20 MEQ TABCR PO (07:59)
--- NOTE | 2019-01-31 08:54 | PDOC.CMPRO ---
Care Management Progress Note S/O: Nitesh continues to be closely monitored and treated for CHF. Per MD, Nitesh will have a complete work up including consults (Psyche, Neuro, Podiatry), Head CT, MRI, EEG. Nitesh is lying on his side, two of his three daughters at his bedside when CM meets with him. He reports his daughter's are Odilia and Katlyn and his other daughter, Megha who primarily resides in [place] is home with his , Luis. (Shabnam) Nitesh is open to the idea of having MOW and reports his daughters are helping with ADLs at home especially attending to Luis's care in the shower. He enjoys driving and is concerned the recommendation may be for him to discontinue driving. CM reviewed community based supports, Nitesh is attempting to sell their home in [place] and is renting in [place] at this time. He is open to an options counseling referral and a referral to Fabiana Chappell; CCC at [facility] to attend to referrals for increased services for Luis. CM continues to follow. A: 79 year old male admitted to [facility] 01/28/19 for CHF, Chest Pain P: Nitesh will discharge home when ready, per MD. CM will refer him to home [facility] for options counseling and MOW as well as CCC at PCP office. CM continues to provide support central to discharge planning and disposition.
[2019-01-31] MEDS: Nystatin POWDER 60 GM JAR TP ×2 (09:40→20:25)
--- NOTE | 2019-01-31 13:46 | PGE_ITS ---
Date of Service Date of service: 01/31/19 Time of Service: 13:47 Assessment and Plan Assessment and plan (1) Transient neurological symptoms: Status: Acute Assessment and plan: TIA is certainly possible, especially considering the fact that he is not on anticoagulation and has A flutter, but I also wonder about a psychogenic nature of symptoms or a side effect of wellbutrin. MRI is planned for tomorrow. Consulting both neurology and psychiatry. No change in therapy at this time. Continue to monitor on tele. (2) Hallucinations: Status: Acute Assessment and plan: The patient is vague about just how long he has been having hallucinations, but it's not a new problem. It is, however, worse since being started on wellbutrin. Wellbutrin has been d/c'ed. Obtaining neurology and psychiatry consultations. (3) CHF (congestive heart failure): Status: Acute Assessment and plan: Acute on chronic, combined diastolic and R-sided (cor pulmonale). - weight and Cr are stable on PO lasix. - Needs to be encouarged to wear BiPAP. - Patient was not compliant with BiPAP last night. Needs to follow up with sleep clinic and a airplane and engine inspector - Continue BB, ASA, Statin. Lipids at goal. Qualifiers: Heart failure type: unspecified Heart failure chronicity: acute on chronic Qualified Code(s): I50.9 - Heart failure, unspecified (4) Depression: Status: Chronic Assessment and plan: As above. Continue celexa; wellbutrin d/c'ed. Obtaining psychiatry consult. (5) ASHD (arteriosclerotic heart disease): Status: Acute Assessment and plan: As above. No ACS. lipids at goal. Follow up as outpatient. (6) DARRIN (obstructive sleep apnea): Status: Chronic Assessment and plan: Patient's machine is still in [place]. He did have a repeat sleep study last year. We spoke about the importance of transitioning the care to a respiratory company here as well as pulmonary follow up. (7) Atrial fibrillation/flutter: Status: Acute Assessment and plan: Rate has been controlled. No change in tx. Continue to monitor on tele. Not on anticoagulation due to falls - at risk for CVA. MRI is being obtained tomorrow. (8) CKD (chronic kidney disease): Status: Acute Assessment and plan: YVETTE is better. No evidence of urinary retention. Continue PO lasix. Continue to hold ARB. (9) Hypothyroidism (acquired): Status: Chronic Assessment and plan: TSH minimally elevated with a normal FT4. Continue repacement therapy. (10) DVT prophylaxis: Status: Acute Assessment and plan: Allergic to heparin. Continue SCDs and TEDs. Subjective Subjective Interval history since last seen: The patient had an episode of visual disturbance yesterday afternoon, that he describes as seeing things closer than they were. He also had double vision. This lasted for several minutes and resolved on its own. He hadn't had any more of these episodes today. Denies dizziness, headache, chest pain, shortness of breath, nausea. His daughter did not see him falling asleep in midsentence today. He states he hasn't seen any more hallucinations since seeing the man in the [facility] (number 31) yesterday. We spent some time talking about his psychosocial stressors. He lost one of his daughters to breast cancer, which she was diagnosed with at the age of 38. He struggles to make sense why this had to happen to her. He lost his own father at the age of 17 - he states he had not gotten over it. He now feels like he and his are being punished by possibly God because she has dementia. He admits to feeling depressed. He is actually interested in talking to someone about it and possibly would consider talk therapy. He verbalized that since being in a hospital he has found himself sometimes singing or whistling a song, which he feels is a happy behavior, so he feels better from the stand point of his mood, but he admits to feeling depressed overall and is tearful while having this conversation with me. On telemetry, he has been in Aflutter, 60-90's. Nursing reports that there is a bleeding wound on his R great toe. Exam Narrative Exam Narrative: General: very pleasant obese male, A&Ox3, slightly HABEMATOLEL, comfortable sitting in the recliner on room air, no tachypnea, tearful/anxious when talking about his life stressors HEENT: EOMI, MMM Heart: RRR, no m/r/g Lungs: crackles at B bases - improved. GI: abdomen is soft, nontender, nondistneded Extremities: wearing TEDs B - no edema noted. Objective Objective Clinical Data: Abnormal lab results 01/31/19 Range/Units 06:20 BUN 34 H (7-18) mg/dL Creatinine 1.59 H (0.70-1.30) mg/dL Glucose 114 H (70-100) mg/dL Vital Signs Temperature 36.6 C 01/31/19 11:30 Temperature Source Tympanic 01/31/19 11:30 Pulse 75 01/31/19 11:30 Pulse Rhythm Irregular 01/31/19 08:00 Pulse 73 01/28/19 19:03 Respiratory Rate 18 01/31/19 11:30 Respiratory Effort Incrsd Work of Breathing 01/31/19 08:00 Respiratory Depth Normal 01/31/19 08:00 Respiratory Pattern Apnea 01/31/19 08:00 Blood Pressure 139/78 01/31/19 11:30 Blood Pressure Mean 156 01/28/19 19:03 Blood Pressure Position Sitting 01/28/19 15:40 Pulse Oximetry 96 01/31/19 11:30 Oxygen Delivery Method Room Air 01/31/19 11:30 Oxygen Flow Rate 0 01/31/19 13:45 Pain Level 0 01/31/19 11:30 Comment 01/31/19 04:00 Intake & Output 01/30/19 01/31/19 01/31/19 23:59 11:59 23:59 Intake Total 840 / 1570 340 / 940 600 / 940 Output Total 800 / 2800 1300 / 1300 Balance 40 / -1230 -960 / -360 600 / -360 Weight 135.4 kg Intake: Oral 840 / 1560 340 / 940 600 / 940 Output: Urine 800 / 2800 1300 / 1300 Other: Urine Color Dark Sherrill Yellow Urine Appearance Clear Clear Urine Odor Normal Strong Comment Unable to measure urine output. Patient voided in the toilet dark yellow Stool Size Large Stool Characteristics Formed Voiding Methods Toilet Toilet Laboratory Results WBC 8.66 k/cumm (4.4-10.8) 01/30/19 06:55 RBC 3.76 m/cumm (4.50-6.00) L 01/30/19 06:55 Hgb 11.9 g/dL (13.5-17.5) L 01/30/19 06:55 Hct 36.4 % (40.0-50.0) L 01/30/19 06:55 MCV 96.8 fL (80-95) H 01/30/19 06:55 MCH 31.6 pg (27.0-33.0) 01/30/19 06:55 MCHC 32.7 g/dL (32.0-36.0) 01/30/19 06:55 RDW 14.4 % (11.8-14.1) H 01/30/19 06:55 Plt Count 283 x1000/uL (130-400) 01/30/19 06:55 MPV 9.9 fL (8.0-11.0) 01/30/19 06:55 Immature Gran % 0.5 01/30/19 06:55 Neutrophils % 71.5 01/30/19 06:55 Lymphocytes % 11.7 01/30/19 06:55 Monocytes % 12.2 01/30/19 06:55 Eosinophils % 3.9 01/30/19 06:55 Basophils % 0.2 01/30/19 06:55 Absolute Neutrophils 6.19 k/cumm (1.2-6.7) 01/30/19 06:55 Absolute Lymphocytes 1.01 k/cumm (1.2-3.4) L 01/30/19 06:55 Absolute Monocytes 1.06 k/cumm (0.11-0.7) H 01/30/19 06:55 Absolute Eosinophils 0.34 k/cumm (0.0-0.7) 01/30/19 06:55 Absolute Basophils 0.02 k/cumm (0.0-0.2) 01/30/19 06:55 PT 12.0 sec (9.3-11.0) H 01/28/19 15:47 INR 1.2 (0.9-1.1) H 01/28/19 15:47 APTT 27.8 sec (21.0-31.4) 01/28/19 15:47 Sodium 141 mmol/L (136-145) 01/31/19 06:20 Potassium 4.1 mmol/L (3.5-5.1) 01/31/19 06:20 Chloride 102 mmol/L (98-107) 01/31/19 06:20 Carbon Dioxide 30.5 mmol/L (21.0-32.0) 01/31/19 06:20 Anion Gap 8.5 mmol/L (3-11) 01/31/19 06:20 BUN 34 mg/dL (7-18) H 01/31/19 06:20 Creatinine 1.59 mg/dL (0.70-1.30) H 01/31/19 06:20 Estimated GFR/1.73 m2 42.32 (mL/min/1.73m2) 01/31/19 06:20 Glucose 114 mg/dL (70-100) H 01/31/19 06:20 Hemoglobin A1c 6.3 % (4.5-6.2) H 01/29/19 07:02 Calcium 8.9 mg/dL (8.5-10.1) 01/31/19 06:20 Magnesium 2.1 mg/dL (1.8-2.4) 01/31/19 06:20 Total Bilirubin 0.8 mg/dL (0.2-1.0) 01/28/19 15:47 AST 18 U/L (15-37) 01/28/19 15:47 ALT 28 U/L (16-63) 01/28/19 15:47 Alkaline Phosphatase 78 U/L (46-116) 01/28/19 15:47 Troponin I < 0.05 ng/mL (0.00-0.06) 01/31/19 06:20 NT-Pro-B Natriuret Pep 3213 pg/mL (-299) H 01/29/19 07:02 Total Protein 7.5 g/dL (6.4-8.2) 01/28/19 15:47 Albumin 3.5 g/dL (3.4-5.0) 01/28/19 15:47 Triglycerides 117 mg/dL (30-150) 01/29/19 07:02 Total Cholesterol 127 mg/dL (50-200) 01/29/19 07:02 LDL Cholesterol, Calc 73 mg/dL 01/29/19 07:02 HDL Cholesterol 31 mg/dL (40-60) L 01/29/19 07:02 Lipase 94 U/L (73-393) 01/28/19 15:47 TSH 4.90 uIU/mL (0.36-3.74) H 01/28/19 15:47 Free T4 1.03 ng/dL (0.76-1.46) 01/28/19 15:47
--- NOTE | 2019-01-31 14:07 | PDOC.EEG_ITS ---
Neurology EEG EEG: [facility] Department of Neurology INPATIENT EEG REPORT Date of Recordin01/31/19 Interpreting Physician: Dr. Masha De La Rosa Reason for study: Mr. Mg is a 79 year-old man admitted for a CHF exacerbation with a history of visual hallucinations and falling asleep episodes concerning for seizure. Current Medications: Current Medications Acetaminophen (Tylenol) 0 mg PO Q4H PRN PRN Al Hydrox/Mg Hydrox/Simethicone (Mylanta Liquid) 30 ml PO Q2H PRN PRN Albuterol Sulfate (Ventolin Hfa) 2 puff IH Q6H PRN PRN PRN Reason: Wheezing Aspirin () 325 mg PO DAILY [facility] Last Admin: 01/31/19 07:59 Dose: 325 mg Documented by: Citalopram Hydrobromide (Celexa) 40 mg PO DAILY [facility] Last Admin: 01/31/19 07:56 Dose: 40 mg Documented by: Cyclobenzaprine HCl (Flexeril) 10 mg PO Q12H PRN PRN PRN Reason: muscle spasm Dimethicone/Zinc Oxide (Arley Protect Cream) 0 gm TP PRN PRN Docusate Sodium (Colace) 100 mg PO TID PRN PRN Furosemide (Lasix) 20 mg PO BID@0830,1600 [facility] Last Admin: 01/31/19 07:56 Dose: 20 mg Documented by: Sodium Chloride (Saline 500ml Bag) 500 mls @ 0 mls/hr IV PRN PRN Last Infusion: 01/29/19 13:30 Dose: Infused Documented by: IV Miscellaneous Supplies () 1 each IV DIRECTED [facility] Levothyroxine Sodium (Levothroid) 175 mcg PO DAILY@0600 [facility] Last Admin: 01/31/19 05:51 Dose: 175 mcg Documented by: Magnesium Hydroxide (Milk Of Magnesia) 30 ml PO DAILY PRN PRN Metoprolol Succinate (Toprol Xl) 25 mg PO DAILY [facility] Last Admin: 01/31/19 07:57 Dose: 25 mg Documented by: Nitroglycerin (Nitrostat) 0.4 mg SL Q5 MIN PRN X3 PRN Nystatin (Mycostatin Powder) 0 gm TP BID [facility] Last Admin: 01/31/19 09:40 Dose: 1 applic Documented by: Omeprazole (Prilosec) 40 mg PO DAILY@0730 [facility] Last Admin: 01/31/19 07:59 Dose: 40 mg Documented by: Pt's Own Fenofibrate Micronized 134 Mg Capsule 0 each PO DAILY [facility] Last Admin: 01/31/19:59 Dose: 1 each Documented by: Polyethylene Glycol (Miralax) 17 gm PO DAILY PRN PRN PRN Reason: Constipation Potassium Chloride (K-Dur) 20 meq PO Q48H [facility] Last Admin: 01/31/19 07:59 Dose: 20 meq Documented by: Rosuvastatin Calcium (Crestor) 20 mg PO QPM [facility] Last Admin: 01/30/19 20:04 Dose: 20 mg Documented by: Sodium Chloride (Saline 50 Ml Diluent Vial) 50 ml IV .FOR DI USE [facility] Last Admin: 01/28/19 16:51 Dose: 50 ml Documented by: Sodium Chloride (Saline Flush 10 Ml Syringe) 0 ml IVP PRN PRN Last Admin: 01/30/19 07:40 Dose: 10 ml Documented by: METHODS: A 21 channel digitized electroencephalogram was performed in the [facility] Med/Surg Floor or ICU. The 10/20 international system of electrode placement was used and bipolar and referential electrode montages were recorded. In addition to EEG the patient was monitored for EKG and lateral/vertical eye movements. Activation procedures of photic stimulation and hyperventilation were performed if applicable. Video was used during activation procedures and during events where applicable. The duration of the recording was 30 minutes. DESCRIPTION OF EEG: The patient was noted to be awake, drowsy, and asleep during the recording. During maximal wakefulness a 7-8 Hz posterior background rhythm was present which was poorly-modulated, symmetrical, reactive to eye opening, and of moderate voltage. With eye opening the background activity changed to a low voltage mixture of alpha, beta, and occasional theta range frequencies. Faster frequencies were present in the bilateral anterior head regions. There was a normal anterior-posterior voltage gradient. During drowsiness, there was attenuation of the posterior dominant background rhythm and vertex waves. Stage II sleep was present with symmetrical sleep spindles, K-complexes, and vertex waves. During maximal wakefulness, there was intermittent, polymorphic, generalized, moderate-amplitude, theta and delta slowing. Activating Procedures: Photic stimulation was performed which produced no posterior driving. Hyperventilation was not performed. EKG: EKG revealed normal sinus rhythm with frequent PVCs. INTERPRETATION: This EEG is abnormal due to a poorly modulated, slow PDR with polymorphic, generalized, theta and delta slowing. PRIOR EEG: none CLINICAL CORRELATION: The background slowing is suggestive of a mild diffuse cerebral encephalopathy of broad differential including toxic-metabolic etiology. No focal regions of cerebral dysfunction or epileptiform activity was present. Clinical correlation is advised. Masha De La Rosa MD
[2019-01-31] MEDS: Rosuvastatin 10 MG TAB 20 MG PO (20:25)
[2019-02-01] VITALS (8 sets, daily range): BP systolic 117–127; BP diastolic 64–72; PULSE 65–82; RESP 12–20; TEMP 36.6–36.9; O2SAT 91–94
[2019-02-01] MEDS: Levothyroxine 175 MCG TAB PO (06:40)
[2019-02-01 07:20] LABS: Anion Gap 7.8 mmol/L (3-11); BUN 33 mg/dL (7-18); CO2 27.2 mmol/L (21.0-32.0); CREATININE 1.61 mg/dL (0.70-1.30); Calcium 8.5 mg/dL (8.5-10.1); Chloride 105 mmol/L (98-107); Estimated GFR 41.71 (mL/min/1.73m2); Glucose 122 mg/dL (70-100); Magnesium 2.1 mg/dL (1.8-2.4); Potassium 4.5 mmol/L (3.5-5.1); Sodium 140 mmol/L (136-145)
--- NOTE | 2019-02-01 07:30 | W.PODCONSULT ---
Date of service: 02/01/19 Time of Service: 07:30 Assessment and Plan Assessment and plan (1) Contusion of right great toe with damage to nail: Status: Acute History of Present Illness History of Present Illness Chief Complaint: contusion right great toenail Narrative: 79-year-old white male who dropped a cup on his right great toe yesterday causing bleeding and disruption of the nail plate. I have been asked to evaluate the injury and treat. PFSH Medical History ASHD (arteriosclerotic heart disease) (Acute) CABG and multiple stents CHF (congestive heart failure) (Acute) Hyperlipidemia (Acute) Hypertension (Chronic) Hypothyroidism (acquired) (Chronic) Memory changes (Acute 12/15/17) Sleep apnea (Chronic) No longer using CPAP - sent back Spinal stenosis (Chronic 10/04/13) multiple procedures: epidural; operations Stress at home (Acute) -early dementia, daughter-breast cancer. Surgical History Cyst in hand (Acute) Status post excision on 10/12/2018 on palmar aspect of right hand. foot surgery right heart bypass x 3 spurs left great toe spurs/osteoarthritis stint x 1 Family History Mother , 87 Stroke Father , 48 Heart disease Hyperlipidemia Brother No problems noted. Maternal Grandfather No problems noted. Paternal Grandfather No problems noted. Maternal Grandmother , 98 No problems noted. Paternal Grandmother , 71 Heart disease Daughter , 53 No problems noted. Social History Smoking/Tobacco Use Status: Former Tobacco Use Quit Date: 04/28/83 Tobacco: How many years used: 20 Alcohol Intake: current Alcohol Intake frequency: holidays/special occasions only Drug use: Never Substance use type: does not use Caregiver/Support person: No Household members: spouse Housing: apartment Communication Needs: Hard of Hearing Do you need help understanding health information?: Rarely Pets and animals: Yes Pets and animals: dog(s) Sexually active: No Do you think of yourself as: straight/heterosexual Current gender identity: decline to answer What is your relationship status?: How often do you talk on the phone with friends or family?: three or more times per week How often do you get together with friends or relatives?: once per week How often do you attend restorationist or quaker services?: decline to answer Do you belong to any clubs or organized social groups?: no Panel score (0-1 are the most socially isolated patients): 2 What type of physical activity do you participate in: none Frequency: 3-4 times per week Nora/Yazidism: No preference Special nora needs: No Seatbelt use: always Drive intox or ride w/intox food mobile driver: No Do you feel safe at home: Yes Do you feel safe in your relationship?: Yes Exam Narrative Exam Narrative: Nitesh is seen at bedside he was resting comfortably. His JENNYFER hose are noted to be down around his ankles. No peripheral edema or is noted at this time. His calves are soft to palpation. Old surgical scar noted consistent with a vascular bypass to the right lower extremity. DP and PT pulses are diminished but his feet are warm to the touch. Capillary refills under 3 seconds to all toes. Dressings are removed from his right great toe. Dried blood is appreciated on the nail plate. The distal aspect of the nail plate, a small section of toenail is avulsed,b ut no active bleeding is currently noted. There is minimal tenderness to direct palpation. There was no suggestive edge of underlying bone or joint disruption as the digit itself was nontender and had decent range of motion at the IPJ. The remaining toenails were completely unremarkable and well groomed. Muscle groups appeared to be 5 out of 5 bilaterally. Skeletal exam was grossly benign. He has had previous bunionectomy type procedures on both great toes. Neurologically his toes were downgoing no focal deficits appreciated. Impressions: Contusion with damage to the right great nail plate as above Plan: I debrided the loose portion of the nail away from the nailbed and debrided the irregular margins around the defect so as to provide comfort and to avoid ongoing irritation and pulling of the nail plate. The underlying skin of the nailbed has clotted and there is no active bleeding and there were no lacerations or deficits noted. Aside from washing the right great toe on a daily basis, I do not see the need for any additional management unless signs and symptoms change. Thank you for the consultation. Results Last Vital Signs Temp 36.6 C 02/01/19 03:44 Pulse 82 02/01/19 03:44 Resp 20 02/01/19 03:44 BP 126/72 02/01/19 03:44 Pulse Ox 93 L 02/01/19 03:44 Labs Result diagrams: 01/30/19 06:55 02/01/19 06:45 Labs: Laboratory Results - last 24 hr 01/31/19 02/01/19 06:20 06:45 Sodium 140 Potassium 4.5 Chloride 105 Carbon Dioxide 27.2 Anion Gap 7.8 BUN 33 H Creatinine 1.61 H Estimated GFR/1.73 m2 41.71 Glucose 122 H Calcium 8.5 Magnesium 2.1 2.1 Troponin I < 0.05
[2019-02-01] MEDS: Aspirin 325 MG TAB PO (07:48)
[2019-02-01] MEDS: Omeprazole 20 MG CAPCR 40 MG PO (07:49)
[2019-02-01] MEDS: Furosemide 20 MG TAB PO ×2 (07:49→15:36)
[2019-02-01] MEDS: Citalopram 20 MG TAB 40 MG PO (07:49)
[2019-02-01] MEDS: Metoprolol CR 25 MG TABCR PO (07:49)
[2019-02-01] MEDS: Nystatin POWDER 60 GM JAR TP (07:51)
--- NOTE | 2019-02-01 08:00 | DI.MRI_ITS ---
EXAM: MR BRAIN WO CLINICAL HISTORY: episodes of unresponsiveness, ?Seizures. TECHNIQUE: Multiplanar multisequence MRI was performed. COMPARISON: MR BRAIN WO from 01/22/2019 FINDINGS: MR examination of brain was performed according to the usual protocol. Examination is compared most recent prior study of January 22. Note is again made of generalized cerebral atrophy and presume d microvascular ischemic changes of periventricular and subcortical white matter. No interval change appearance in comparison previous emanation. No new signal abnormality the brain. No diffusion res triction. No evidence of hemorrhage on susceptibility weighted imaging. IMPRESSION: No change in appearance in comparison with previous examination of January 22. No evidence of acut e infarction.
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
--- NOTE | 2019-02-01 16:58 | DSE_ITS ---
Date of service: 02/01/19 Time of Service: 16:58 DS: Diagnosis Discharge Diagnosis (1) Contusion of right great toe with damage to nail: Status: Acute (2) CKD (chronic kidney disease): Status: Acute (3) Encephalopathy acute: Status: Acute (4) Atrial fibrillation/flutter: Status: Acute (5) DARRIN (obstructive sleep apnea): Status: Chronic (6) Hypertension: Status: Chronic (7) Hyperlipidemia: Status: Acute (8) Pulmonary hypertension: Status: Acute (9) ASHD (arteriosclerotic heart disease): Status: Acute (10) Hypothyroidism (acquired): Status: Chronic (11) Depression: Status: Chronic (12) Acute on chronic diastolic heart failure: Status: Acute Discharge Plan Disposition Patient Disposition: HOME Condition: Good Discharge Details Chief Complaint: Chest Pain Clinical Impression: Acute exacerbation of CHF (congestive heart failure), Chest pain Reason For Visit: CHF, CHEST PAIN Admit Date/Time: 01/28/19 19:34 Admit Provider: Tez Lindquist Attending Provider: Tez Lindquist Primary Care Provider: Jazzmine Rodas ED Provider: Gerry Varghese Hospital Course Hospital Course: Mr Mg is a 79 yo M with PMHx of CAD s/p CABG, as well as Atrial fibrillation/flutter, not on anticoagulation, hypertension, hyperlipidemia, who was admitted to [facility] on 01/28/19 with exertional chest pain and CHF. He did not have an acute coronary syndrome on this admission. He was diuresed with IV lasix, switched to PO lasix 20 mg BID, will need to follow a fluid restriction of 2L a day. He is instructed to weight himself daily and contact his PCP if he has gained more than 3lbs in 3 days. Hid dry weight is 135 kg. His echocardiogram revealed EF of 50-55%, could not comment on diastolic dysfunction (though the patient clinically likely has this), and did reveal severe pulmonary hypertension with tricuspid regurgitation. He does not have a PE per CTA of his chest. The patient has known DARRIN, but unfortunately is non-compliant with a CPAP he is supposed to wear. He needs to have his [place] sleep study done 1 year ago faxed to the PCP, so that new arrangements for CPAP can be made and, based on presence of pulmonary hypertension, he should follow up with a research dietitian - he is being referred to [facility]. He will need an outpatient nuclear stress test as well. During his stay at the hospital, the patient developed several non-cardiac related symptoms, such as hallucinations (evidently, the patient hallucinates at baseline as well, but this became more frequent on wellbutrin he was recently started on), episodes of falling asleep in mid-sentence with a negative MRI and EEG consistent with encephalopathy (?due to wellbutrin or perhaps related to the findings of possible cirrhosis on CT), and visual changes, which were self- limited and happen at home as well. Wellbutrin was discontinued. The patient would benefit from follow up with outpatient psychiatry to help with medication adjustment. Clinically he does not have hepatic encephalopathy, but ammonia could be checked as outpatient if confusion recurs. The patient was evaluated by neurology and should follow up with neurology as well. PCP and the patient should discuss initiation on anticoagulation given his history of Afib/flutter. Outpatient workup of cirrhosis should be pursued. I am referring the patient to optometry as well, as he is supposed to wear glasses. He is no longer hallucinating. He is medically stable for discharge home today, verbalizes understanding of his instructions, and should follow up with his PCP this week. Care for patient as well as preparation of his discharge summary took 45 minutes on the day of discharge. Home Meds and New Rx's Prescriptions: Continued levothyroxine 175 mcg tablet 175 mcg PO DAILY Qty: 30 RF: 0 lorazepam 1 mg tablet 1 mg PO .COMPLEX PRN (Reason: anxiety) Qty: 2 RF: 0 rosuvastatin 20 mg tablet 20 mg PO DAILY RF: 0 potassium chloride 20 mEq tablet extended release See Rx Instructions .ROUTE .COMPLEX RF: 0 fenofibrate micronized 134 mg capsule 134 mg PO DAILY RF: 0 omeprazole 40 mg capsule,delayed release(DR/EC) 40 mg PO DAILY Qty: 90 RF: 4 cyclobenzaprine 10 mg tablet 10 mg PO Q12H PRN (Reason: muscle spasm) Qty: 30 RF: 4 losartan 100 mg tablet 100 mg PO DAILY Qty: 90 RF: 3 nitroglycerin 0.4 MG tablet, sublingual 0.4 mg Sublingual PRN RF: 0 metoprolol succinate 25 MG tablet extended release 24 hr 25 mg PO DAILY Qty: 90 RF: 4 albuterol sulfate [ProAir HFA] 90 mcg/actuation HFA aerosol inhaler 1 - 2 puff Inhalation BID Qty: 18 RF: 6 citalopram 40 mg tablet 40 mg PO DAILY Qty: 90 RF: 4 aspirin 325 MG tablet 325 mg PO DAILY RF: 0 acetaminophen [Acetaminophen Extra Strength] 500 mg Tablet 1,000 mg PO BID RF: 0 Changed furosemide 20 mg tablet 20 mg PO BID Qty: 30 RF: 4 Discontinued hydrocodone-acetaminophen 10-325 mg tablet 1 tab PO TID MDD 20mg PRN (Reason: pain) Qty: 15 RF: 0 bupropion HCl 300 mg tablet extended release 24 hr 300 mg PO QAM Qty: 90 RF: 0 ibuprofen 800 mg tablet 800 mg PO QID PRN (Reason: pain) Qty: 20 RF: 0 Discharge Instructions Instructions: Heart Failure (DC), Sleep Apnea (DC), Pulmonary Arterial Hypertension (DC) Additional Instructions: Return to the hospital with any fever, bleeding, chest pain, or shortness of breath. Keep to fluid restriction of 2,000 cc per day (2 liters). Follow a salt restriction of 2 grams of salt (sodium chloride) per day. Sea salt is ok. Weigh yourself daily. Contact your PCP if your weight goes up by 3 lbs in 3 days. We are referring you for a stress test. Follow up with neurology, psychiatry, [facility] pulmonology, optometry. You must not drive unless cleared to by neurology or PCP. Referrals: PULMONOLOGY,[facility] [OTHER] - (severe pulmonary hypertension, DARRIN (not currently using CPAP)) [facility]THOMOLOGY,[facility] [OTHER] - (optometry referral) Blanca Gilliam MD [ [facility] STAFF PHYSICIAN] - Masha De La Rosa MD [ [facility] STAFF PHYSICIAN] - Activity:: Activity as Tolerated Equipment/Supplies:: No Equipment Needed Diet:: Low Sodium Discharge Orders Discharge Orders: Discharge Order (Routine); Ordered 02/01/19 Ordered By: Lexy Fields Other Ambulatory Orders: Basic Metabolic Panel (Routine) Timeframe: 1 Week Facility: [facility] - Location: Laboratory Outpatient Ordered By: Lexy Fields Magnesium (Routine) Timeframe: 1 Week Facility: [facility] - Location: Laboratory Outpatient Ordered By: Lexy Fields NM MPI rest & stress grp (Routine) Timeframe: 1 Week Facility: [facility] - Location: CARDIAC LAB Ordered By: Lexy Fields DS: Summary Status at Discharge Functional status at discharge: independent ambulation Overall status at discharge: patient is back to baseline Mental Status: mental status grossly normal Speech and Movement: speech and movement normal Mood: congruent mood Affect: normal affect Exam Narrative Exam Narrative: General: very pleasant obese male, A&Ox3, slightly [place], comfortable sitting in the recliner on room air, no tachypnea HEENT: EOMI, MMM Heart: RRR, no m/r/g Lungs: crackles at B bases - improved. GI: abdomen is soft, nontender, nondistneded Extremities: wearing TEDs B - no edema noted. Psych Mental Status: mental status grossly normal Speech and Movement: speech and movement normal Mood: congruent mood Affect: normal affect DS: Data Vitals/I&O Vitals and I&O: Vital Signs Temperature 36.9 C 02/01/19 16:14 Temperature Source Tympanic 02/01/19 16:14 Pulse 68 02/01/19 16:14 Pulse Rhythm Irregular 02/01/19 09:39 Pulse 73 01/28/19 19:03 Respiratory Rate 18 02/01/19 16:14 Respiratory Effort 02/01/19 09:39 Respiratory Depth Normal 02/01/19 09:39 Respiratory Pattern Normal 02/01/19 09:39 Blood Pressure 127/70 02/01/19 16:14 Blood Pressure Mean 156 01/28/19 19:03 Blood Pressure Position Sitting 01/28/19 15:40 Pulse Oximetry 94 L 02/01/19 16:14 Oxygen Delivery Method Room Air 02/01/19 16:14 Oxygen Flow Rate 0 02/01/19 16:14 Pain Level 0 02/01/19 16:14 Comment 01/31/19 04:00 Intake & Output 01/31/19 02/01/19 02/01/19 23:59 11:59 23:59 Intake Total 850 / 1190 480 / 600 120 / 600 Output Total 150 / 1450 1100 / 1500 400 / 1500 Balance 700 / -260 -620 / -900 -280 / -900 Weight 135 kg Intake: IV Oral 840 / 1180 480 / 600 120 / 600 Output: Urine 150 / 1450 1100 / 1500 400 / 1500 Other: Urine Color Yellow Yellow Urine Appearance Clear Clear Clear Urine Odor Normal Comment 11, 29, 0cc were the scan amounts Stool Size Moderate Stool Characteristics Formed Voiding Methods Toilet Toilet Data Completed and Pending Completed studies during hospitalization [Text1]: CXR 01/28/19: Cardiomegaly, no evidence of acute process. Pleural effusion was identified on CT. CTA chest/abdomen/pelvis 01/28/19: 1. Right pleural effusion without ifeanyi pulmonary edema, possibility of incipient CHF is raised. 2. No evidence of pulmonary embolic disease. 3. 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 Echo 01/29/19: This study was limited by poor windows. Left Ventricle : LV is mildly enlarged. Mild concentric left ventricular hypertrophy. Unable to fully delineate diastolic function due to a rhythm. Patient likely has elevated filling pressures Low normal estimated EF 50 to 55% There is normal LV segmental wall motion. 50-55% Right Ventricle : dilated in size. function is mild to moderately reduced Right ventricle is mildly hypokinetic. Atria : Left atrium is moderately dilated. Right atrium is mildly dilated. Aortic Valve : sclerotic probably trileaflet. No aortic regurgitation is present. There is no aortic valvular stenosis. Mitral Valve : Mitral valve leaflets are mildly thickened with likely tethering of the posterior mitral leaflet. Moderate mitral regurgitation. Eccentric posterior directed jet with significant Coanda effect Tricuspid Valve : dilated annulus, mildly thickened valve. TR is severe with hepatic reversal of flow. RVSP est to be >50mmhg. TR max 3.8m/s Great Vessels : normal size aortic root. Pericardium : No pericardial effusion. The IVC is mildly dilated with greater than 50% collapse. This corresponds to an estimated RA pressure of [address] head without contrast 01/30/19: No evidence of acute intracranial process. MRI brain without contrast 02/01/19: official read is pending. Preliminary read is negative for an acute CVA. Pending studies at discharge: Please, follow up final MRI read. Additionally, follow up chemistry/magnesium in 1 week. Labs on day of discharge: Labs from last 24 hours 02/01/19 06:45 Sodium 140 Potassium 4.5 Chloride 105 Carbon Dioxide 27.2 Anion Gap 7.8 BUN 33 H Creatinine 1.61 H Estimated GFR/1.73 m2 41.71 Glucose 122 H Calcium 8.5 Magnesium 2.1 PFSH Medical History ASHD (arteriosclerotic heart disease) (Acute) CABG and multiple stents CHF (congestive heart failure) (Acute) Hyperlipidemia (Acute) Hypertension (Chronic) Hypothyroidism (acquired) (Chronic) Memory changes (Acute 12/15/17) Sleep apnea (Chronic) No longer using CPAP - sent back Spinal stenosis (Chronic 10/04/13) multiple procedures: epidural; operations Stress at home (Acute) -early dementia, daughter-breast cancer. Surgical History Cyst in hand (Acute) Status post excision on 10/12/2018 on palmar aspect of right hand. foot surgery right heart bypass x 3 spurs left great toe spurs/osteoarthritis stint x 1 Family History Mother , 87 Stroke Father , 48 Heart disease Hyperlipidemia Brother No problems noted. Maternal Grandfather No problems noted. Paternal Grandfather No problems noted. Maternal Grandmother , 98 No problems noted. Paternal Grandmother , 71 Heart disease Daughter , 53 No problems noted. Social History Smoking/Tobacco Use Status: Former Tobacco Use Quit Date: 04/28/83 Tobacco: How many years used: 20 Alcohol Intake: current Alcohol Intake frequency: holidays/special occasions only Drug use: Never Substance use type: does not use Caregiver/Support person: No Household members: spouse Housing: apartment Communication Needs: Hard of Hearing Do you need help understanding health information?: Rarely Pets and animals: Yes Pets and animals: dog(s) Sexually active: No Do you think of yourself as: straight/heterosexual Current gender identity: decline to answer What is your relationship status?: How often do you talk on the phone with friends or family?: three or more times per week How often do you get together with friends or relatives?: once per week How often do you attend sabianist or jain services?: decline to answer Do you belong to any clubs or organized social groups?: no Panel score (0-1 are the most socially isolated patients): 2 What type of physical activity do you participate in: none Frequency: 3-4 times per week Nora/Quaker: No preference Special nora needs: No Seatbelt use: always Drive intox or ride w/intox public transit bus driver: No Do you feel safe at home: Yes Do you feel safe in your relationship?: Yes
--- NOTE | 2019-02-01 20:41 | PDOC.CMDIS ---
LACE Index Scoring Tool - Questions: Length of Stay (in days): 4 - 6 Acuity (Admit via E.D.?): Yes Comorbidities: Congestive Heart Failure E.D. Visits: 6 - Answers: Total Score: 13 Risk of Readmission: High Risk Care Management Discharge Reason for Hospitalization: CHF, chest pain Discharge Plan: Nitesh will discharge home when ready, per MD. CM faxed referral to [facility] for options counseling and [facility] as well as CCC at PCP office to assess increased home service supports for Nitesh and his , Luis. Nitesh will follow up with Pulmonology, Ophthomology, Psychiatry, and Neurology. He will transport via private vehicle with his daughter. Patient/Family Education Needs: Review discharge instructions, discuss Ask Me Three. Services Needed at Discharge: Home Delivered Meals ([facility]: [facility] and [facility] Counseling) - MH Services (Omit if N/A) Current MH Services: Other (Outpatient referral to Dr. Gilliam; Psychiatrist)
== END 2019-02-01 18:22 | disposition home or self-care (01) | DRG 292 ==
LOC: ER 20:53 → MS 21:00
PROVIDERS: Internal Medicine; Admitting Provider Internal Medicine; Emergency Provider Student in an Organized Health Care Education/Training Program; PCP Family Medicine; Visit Provider Internal Medicine
DX: I50.33 Acute on chronic diastolic (congestive) heart failure (principal); G93.40 Encephalopathy, unspecified; I48.92 Unspecified atrial flutter; R07.9 Chest pain, unspecified; I27.20 Pulmonary hypertension, unspecified; I07.1 Rheumatic tricuspid insufficiency; N18.9 Chronic kidney disease, unspecified; I48.0 Paroxysmal atrial fibrillation; R44.1 Visual hallucinations; R40.4 Transient alteration of awareness; R94.01 Abnormal electroencephalogram [EEG]; G47.33 Obstructive sleep apnea (adult) (pediatric); I12.9 Hypertensive chronic kidney disease with stage 1 through stage 4 chronic kidney disease, or unspecified chronic kidney disease; S90.211A Contusion of right great toe with damage to nail, initial encounter; W20.8XXA Other cause of strike by thrown, projected or falling object, initial encounter; E78.5 Hyperlipidemia, unspecified; I25.10 Atherosclerotic heart disease of native coronary artery without angina pectoris; E03.9 Hypothyroidism, unspecified; F32.9 Major depressive disorder, single episode, unspecified; Z63.79 Other stressful life events affecting family and household; N40.0 Benign prostatic hyperplasia without lower urinary tract symptoms; Z91.81 History of falling; G62.9 Polyneuropathy, unspecified
CPT/HCPCS: 36415; 71275; 74177; 80048; 80053; 80061; 83690; 93005; 93306; 94640; 95816; 95819; 96374; 97162; 99223; 99232; 99233; 99239; 99285; 70450; 70551; 71045; 83036; 83735; 83880; 84439; 84443; 84484; 85025; 85610; 85730; 93010; 94660; J1941; J3490; J7620

== ENCOUNTER → 2019-01-29 07:38 | Outpatient (BNVA) | payer MEDICARE, OTHER, SELFPAY | PROVIDERS: PCP Family Medicine; Referring Provider Family Medicine; Visit Provider Internal Medicine Cardiovascular Disease | DX: R69 Illness, unspecified (principal) ==

== ENCOUNTER → 2019-02-01 08:10 | Outpatient (BNVA) | payer MEDICARE, OTHER, SELFPAY | PROVIDERS: PCP Family Medicine; Referring Provider Family Medicine; Visit Provider Psychiatry & Neurology Neurology | DX: R69 Illness, unspecified (principal) ==

== ENCOUNTER 2019-02-08 10:12 | Outpatient (CLI) | payer MEDICARE, OTHER, SELFPAY ==
[2019-02-08 11:42] LABS: Anion Gap 10.6 mmol/L (3-11); BUN 24 mg/dL (7-18); CO2 25.4 mmol/L (21.0-32.0); Calcium 8.8 mg/dL (8.5-10.1); Chloride 106 mmol/L (98-107); Estimated GFR 53.39 (mL/min/1.73m2); Glucose 125 mg/dL (70-100); Magnesium 1.9 mg/dL (1.8-2.4); Potassium 4.5 mmol/L (3.5-5.1); Sodium 142 mmol/L (136-145)
== END 2019-02-08 10:32 ==
PROVIDERS: PCP Family Medicine; Visit Provider Internal Medicine
DX: I10 Essential (primary) hypertension (principal); N18.9 Chronic kidney disease, unspecified
CPT/HCPCS: 36415; 80048; 83735

== ENCOUNTER 2019-02-11 00:04 | Outpatient (CLI) | payer MEDICARE, OTHER, SELFPAY ==
--- NOTE | 2019-02-11 06:46 | DI.NM_ITS ---
APPROVED REPORT Exam: Pharmacologic Patient Location: Out-Patient Stress Nurse: Ana Osman RN Baseline Rhythm: Atrial Flutter BMI: 39.32 Indications: Exertional chest pain and CHF. Medical History Medical History: Atrial Fibrillation, CAD s/p CABG, CAD s/p stent Cardiac Medications: Nitroglycerin, Aspirin, Metoprolol, Potassium Chloride, Rosuvastatin, Furosemide , Albuterol, Levothyroxine, Losartan, Omeprazole Allergies: Heparin. Morphine. Niaspan. Cardiac Risk Factors: HTN, COPD, Hyperlipidemia Previous Cardiac Procedures: CABG, PCI Pretest Chest Pain Characteristics: Exertional Chest pain Exercise History: Indeterminate Physical Disabilities: Back Lung Sounds: Clear to auscultation Heart Sounds: Regular Stress Test Details Test: Pharmacologic stress testing performed using 0.4 mg of regadenoson per 5 mL given IV over 10 s econds. Nuclear Acquisition: Rest Tc-99m/Stress Tc-99m 1 day Rest Isotope: Tc-99m Sestamibi. Dose: 14.5 Date: 02/11/2019 Injection Time: 0950 Stress Isotope: Tc-99m Sestamibi. Dose: 44.0 Date: 02/11/2019 Injection Time: 1220 HR Resting HR: 69 bpm Max Heart Rate (APMHR): 142 bpm Resting HR Supine: 69 bpm Target HR (85% APMHR): 120 bpm Max HR Achieved: 73 bpm % of APMHR: 51 Recovery HR: 69 bpm HR response to stress: Normal HR response to stress BP Resting BP: 160/96 mmHg Resting BP Supine: 160/96 mmHg Max BP: 170/94 mmHg Recovery BP: 168/94 mmHg BP response to stress: Normal blood pressure response to stress. ECG Resting ECG: Atrial Flutter ST Change: none Ectopy: Occasional PVCs Stress ECG: No significant ST segment changes. ST Change: none Recovery ECG: Atrial Flutter Recovery ST Change: none Clinical Start time of Regadenoson test (time of injection): 1220 Exercise duration: min sec Stress ECG Conclusion 1. There is no evidence of ischemia on ECG portion of the exam Test Summary Supine 69 160/96 1 min post lexiscan injection 72 162/98 3 min post lexiscan injection 73 170/94 6 min post lexiscan injection 69 168/94 MPI Conclusion Specificity of this study is reduced by significant bowel uptake. There is a small, reversible area of ischemia in the apex. There is borderline Transient Ischemic Dilation (ratio 1.26) There is an intermediate probability of angiographc evidence of CAD
[2019-02-11] MEDS: Regadenoson 0.4 MG/5 ML SYR IVP (12:57)
== END 2019-02-11 00:24 ==
PROVIDERS: PCP Family Medicine; Visit Provider Internal Medicine
DX: R07.9 Chest pain, unspecified (principal); I50.9 Heart failure, unspecified; I48.92 Unspecified atrial flutter; I25.10 Atherosclerotic heart disease of native coronary artery without angina pectoris; I10 Essential (primary) hypertension; E78.5 Hyperlipidemia, unspecified; Z95.1 Presence of aortocoronary bypass graft; Z95.5 Presence of coronary angioplasty implant and graft
CPT/HCPCS: 78452; 93016; 93018; 93017; J2785

== ENCOUNTER 2019-02-17 12:30 | Inpatient (IN) | payer MEDICARE, OTHER, SELFPAY ==
[2019-02-17] VITALS (62 sets, daily range): BP systolic 98–171; BP diastolic 55–133; PULSE 71–105; RESP 2–38; TEMP 36.1; O2SAT 89–98
--- NOTE | 2019-02-17 12:57 | ED.GENADUL_ITS ---
Discharge Plan Disposition Patient Disposition: [facility] INPATIENT Condition: Stable Discharge Details Chief Complaint: SOB Clinical Impression: CHF (congestive heart failure), Non-ST elevated myocardial infarction (non- STEMI) Primary Care Provider: Jazzmine Rodas ED Provider: Carl Loera Home Meds and New Rx's Prescriptions: No Action levothyroxine 175 mcg tablet 175 mcg PO DAILY Qty: 30 RF: 0 rosuvastatin 20 mg tablet 20 mg PO DAILY RF: 0 potassium chloride 20 mEq tablet extended release See Rx Instructions .ROUTE .COMPLEX RF: 0 fenofibrate micronized 134 mg capsule 134 mg PO DAILY RF: 0 omeprazole 40 mg capsule,delayed release(DR/EC) 40 mg PO DAILY Qty: 90 RF: 4 cyclobenzaprine 10 mg tablet 10 mg PO Q12H PRN (Reason: muscle spasm) Qty: 30 RF: 4 losartan 100 mg tablet 100 mg PO DAILY Qty: 90 RF: 3 nitroglycerin 0.4 MG tablet, sublingual 0.4 mg Sublingual PRN RF: 0 metoprolol succinate 25 MG tablet extended release 24 hr 25 mg PO DAILY Qty: 90 RF: 4 albuterol sulfate [ProAir HFA] 90 mcg/actuation HFA aerosol inhaler 1 - 2 puff Inhalation BID Qty: 18 RF: 6 citalopram 40 mg tablet 40 mg PO DAILY Qty: 90 RF: 4 aspirin 325 MG tablet 325 mg PO DAILY RF: 0 acetaminophen [Acetaminophen Extra Strength] 500 mg Tablet 1,000 mg PO BID RF: 0 furosemide 20 mg tablet 20 mg PO BID Qty: 30 RF: 4 Medical Decision Making 79-year-old male with a past medical history notable for CAD s/p CABG, Atrial fibrillation/flutter (no anticoagulation), hypertension, hyperlipidemia, who was admitted to [facility] on 01/28/19 with exertional chest pain and CHF. He was diuresed with IV lasix, switched to increased dose of PO lasix 20 mg BID. His echocardiogram revealed EF of 50-55%, he had an unremarkable CTA of the chest, he had an outpatient follow-up nuclear stress test that revealed a small, reversible area of ischemia in the apex. He now has 3 days of shortness of breath in the context of progressive cough, congestion with production of sputum. He arrives to the ED with a temp of 36, pulse 80-100, blood pressure 130/67, 90 to 94% on room air. Exam is notable for discrete wheeze left upper lung field and fine rales at the bases. EKG shows diffuse ST segment depressions that are not significantly changed versus comparison. Today's lab notable for BNP which is risen from approximately [id number], troponin that is positive at 0.44. Chest x-ray with interstitial edema. He has chronic renal insufficiency which is not significantly changed. His white count slightly elevated at 12, hematocrit 35, platelets 238. Consistent with non-STEMI, component of CHF. Case discussed with Dr. Anthony Saucedo at the [facility] who accepts patient in transfer to cardiology service. No bed available today, recommends boarding until transfer available. Would note he is allergic to heparin. Discussed with cardiology and Dr. Saucedo recommends loading with aspirin and Plavix. [facility] contacted and no appropriate bed available for transfer. Lab Data Lab results reviewed: Yes I reviewed the patient's lab results. Labs: Laboratory Results - last 24 hr 02/17/19 02/17/19 12:45 13:37 Sodium 137 Potassium 3.9 Chloride 100 Carbon Dioxide 24.2 Anion Gap 12.8 H BUN 33 H Creatinine 1.67 H Estimated GFR/1.73 m2 39.99 Glucose 107 H Calcium 8.7 Magnesium 1.7 L Total Bilirubin 1.9 H AST 19 ALT 19 Alkaline Phosphatase 64 Troponin I 0.44 H* NT-Pro-B Natriuret Pep 5815 H Total Protein 7.7 Albumin 3.3 L Urine Color Yellow Urine Clarity Clear Urine pH 5.5 Ur Specific [place] 1.020 Urine Protein Negative Urine Ketones Negative Urine Blood Negative Urine Nitrite Negative Urine Bilirubin Negative Urine Urobilinogen 2.0 H Ur Leukocyte Esterase Negative Urine Glucose Negative ECG Data Attestation: I personally reviewed and interpreted this ECG (s) as follows: Interpretation: Underlying atrial fibrillation, rate of 92, the QRS is narrow, there is nonspecific ST segment changes throughout, no significant change versus tracing of January 30 HPI General Mode of arrival: ambulatory . Date/Time Provider Initiated Documentation: 02/17/19 12:35 . Limitations to Documentation: no limitations . Information obtained by: patient . History of Present Illness 79 year old M presents to the emergency department with the chief complaint of Shortness of breath, cough, production of sputum over 3 days. , described as mild, and is localized to the chest. Patient reports no radiation. Patient started experiencing this day(s) and it has been intermittent. Rest improves symptom(s), Movement worsens symptoms . Patient notes cough and shortness of breath; denies chest pain and syncope. Patient did receive the following treatments prior to arrival, none Related Data Home Medications Medication Instructions Recorded Confirmed metoprolol succinate 25 mg PO DAILY #90 tab-cap 11/18/12 02/17/19 nitroglycerin 0.4 mg SUBLINGUAL PRN 11/18/12 02/17/19 aspirin 325 mg PO DAILY 10/31/15 02/17/19 rosuvastatin 20 mg tablet 20 mg PO DAILY 12/31/17 02/17/19 albuterol sulfate 90 mcg/actuation 1 - 2 puff INHALATION BID #18 gm 01/16/18 02/17/19 aerosol inhaler cyclobenzaprine 10 mg tablet 10 mg PO Q12H PRN #30 tab 11/03/18 02/17/19 fenofibrate micronized 134 mg 134 mg PO DAILY 11/03/18 02/17/19 capsule omeprazole 40 mg capsule,delayed 40 mg PO DAILY #90 cap 11/03/18 02/17/19 release potassium chloride 20 mEq See Rx Instructions .ROUTE .COMPLEX 01/05/19 02/17/19 tablet,extended release citalopram 40 mg tablet 40 mg PO DAILY #90 tab 01/11/19 02/17/19 acetaminophen [Acetaminophen Extra 1,000 mg PO BID 01/20/19 02/17/19 Strength] levothyroxine 175 mcg tablet 175 mcg PO DAILY #30 tab 01/21/19 02/17/19 losartan 100 mg tablet 100 mg PO DAILY #90 tab 01/25/19 02/17/19 furosemide 20 mg PO BID #30 tab 02/01/19 02/17/19 Previous Rx's Medication Instructions Recorded albuterol sulfate 90 mcg/actuation 1 - 2 puff INHALATION BID #18 gm 01/16/18 aerosol inhaler cyclobenzaprine 10 mg tablet 10 mg PO Q12H PRN #30 tab 11/03/18 omeprazole 40 mg capsule,delayed 40 mg PO DAILY #90 cap 11/03/18 release citalopram 40 mg tablet 40 mg PO DAILY #90 tab 01/11/19 levothyroxine 175 mcg tablet 175 mcg PO DAILY #30 tab 01/21/19 losartan 100 mg tablet 100 mg PO DAILY #90 tab 01/25/19 furosemide 20 mg PO BID #30 tab 02/01/19 Allergies Allergy/AdvReac Type Severity Reaction Status Date / Time Heparin Analogues Allergy Mild RASH, Verified 02/17/19 12:43 SWELLING, ITCH morphine AdvReac Severe Nausea Verified 02/17/19 12:43 bupropion [From Wellbutrin] AdvReac Intermediate Hallucinati Verified 02/17/19 12:43 ons gabapentin AdvReac Intermediate Hallucinati Verified 02/17/19 12:43 ons codeine AdvReac Mild GI Verified 02/17/19 12:43 atorvastatin calcium AdvReac Pancreatiti Verified 02/17/19 12:43 [From Lipitor] s niacin AdvReac Pancreatiti Verified 02/17/19 12:43 [From Niaspan s Extended-Release] General Stated Complaint: SOB RIGOBERTO: 2 Review of Systems Review of Systems Narrative: No change to weight. Denies chest pain. No fever. No known sick contacts. 8 systems reviewed and otherwise negative. [facility] Medical History ASHD (arteriosclerotic heart disease) (Acute) CABG and multiple stents Atrial fibrillation/flutter (Acute) CHF (congestive heart failure) (Acute) CKD (chronic kidney disease) (Acute) Hyperlipidemia (Acute) Hypertension (Chronic) Hypothyroidism (acquired) (Chronic) Memory changes (Acute 12/15/17) Sleep apnea (Chronic) No longer using CPAP - sent back Spinal stenosis (Chronic 10/04/13) multiple procedures: epidural; operations Stress at home (Acute) -early dementia, daughter-breast cancer. Surgical History Cyst in hand (Acute) Status post excision on 10/12/2018 on palmar aspect of right hand. foot surgery right heart bypass x 3 spurs left great toe spurs/osteoarthritis stint x 1 Family History Mother , 87 Stroke Father , 48 Heart disease Hyperlipidemia Brother No problems noted. Maternal Grandfather No problems noted. Paternal Grandfather No problems noted. Maternal Grandmother , 98 No problems noted. Paternal Grandmother , 71 Heart disease Daughter , 53 No problems noted. Social History Smoking/Tobacco Use Status: Former Tobacco Use Quit Date: 04/28/83 Tobacco: How many years used: 20 Alcohol Intake: current Alcohol Intake frequency: holidays/special occasions only Drug use: Never Substance use type: does not use Caregiver/Support person: No Household members: spouse Housing: apartment Communication Needs: Hard of Hearing Do you need help understanding health information?: Rarely Pets and animals: Yes Pets and animals: dog(s) Sexually active: No Do you think of yourself as: straight/heterosexual Current gender identity: decline to answer What is your relationship status?: How often do you talk on the phone with friends or family?: three or more times per week How often do you get together with friends or relatives?: once per week How often do you attend baptism or sabianism services?: decline to answer Do you belong to any clubs or organized social groups?: no Panel score (0-1 are the most socially isolated patients): 2 What type of physical activity do you participate in: none Frequency: 3-4 times per week Nora/Confucianism: No preference Special nora needs: No Seatbelt use: always 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 Pleasant, well groomed, interac tive. HEAD: Normocephalic, atraumatic ENT: Mucous membranes moist, oropharynx unremarkable, External ear exam unremarkable EYES: PERRL, EOMI NECK: Full ROM, no NIXON, no menigismus CHEST/RESP: Nontender, few basilar rales, left-sided end expiratory wheeze, otherwise clear CARDIOVASCULAR: Irregularly irregular, no murmur, rub zunilda. 2+ Rad pulse bilateral ABDOMEN: Soft, nontender, no mass. +Bowel sounds EXT: Full ROM, trace pretibial bilateral edema, no rash Neuro: Grossly normal neurologic exam, conversant, interactive. Psych: Speech fluent, thoughts congruent, affect normal Course Vital Signs Vital signs: Vital Signs Temperature 36.1 C L 02/17/19 12:37 Pulse 100 H 02/17/19 12:37 Respiratory Rate 22 02/17/19 12:37 Blood Pressure 130/67 02/17/19 12:37 Pulse Oximetry 92 L 02/17/19 12:37 Temperature 36.1 C L 02/17/19 12:37 Temperature Source Temporal Artery Scan 02/17/19 12:37 Pulse 100 H 02/17/19 12:37 Respiratory Rate 22 02/17/19 12:37 Blood Pressure 130/67 02/17/19 12:37 Blood Pressure Position Supine 02/17/19 12:37 Pulse Oximetry 92 L 02/17/19 12:37 Oxygen Delivery Method Room Air 02/17/19 12:37 Oxygen Flow Rate 0 02/17/19 12:37 Pain Level 1 02/17/19 12:37
[2019-02-17] MEDS: Albuterol/Ipratropium 3 ML UPD VIAL UPD ×2 (13:00→23:06)
[2019-02-17 13:28] LABS: Abs Immature Grans 0.03 k/cumm (0.0-0.09); Absolute Basophil Count 0.02 k/cumm (0.0-0.2); Absolute Eosinophil Count 0.02 k/cumm (0.0-0.7); Absolute Lymphocyte Count 0.64 k/cumm (1.2-3.4); Absolute Monocyte Count 1.58 k/cumm (0.11-0.7); Basophils % 0.2; Eosinophils % 0.2; HCT 35.3 % (40.0-50.0); HGB 11.3 g/dL (13.5-17.5); Immature Grans % 0.2; Lymphocytes % 5.2; Mean Corpuscular Hemoglobin 31.1 pg (27.0-33.0); Mean Corpuscular Volume 97.2 fL (80-95); Mean Platelet Volume 10.3 fL (8.0-11.0); Monocytes % 12.8; Neutrophils % 81.4; Platelet Count 238 x1000/uL (130-400); RBC 3.63 m/cumm (4.50-6.00); RBC Distribution Width 14.4 % (11.8-14.1); White Blood Cell Count 12.38 k/cumm (4.4-10.8)
[2019-02-17 13:34] LABS: Absolute Neutrophil Count 10.08 k/cumm (1.2-6.7)
[2019-02-17 13:44] LABS: ALT 19 U/L (16-63); AST 19 U/L (15-37); Albumin 3.3 g/dL (3.4-5.0); Alkaline Phosphatase 64 U/L (46-116); Anion Gap 12.8 mmol/L (3-11); BUN 33 mg/dL (7-18); Bilirubin, Total 1.9 mg/dL (0.2-1.0); CO2 24.2 mmol/L (21.0-32.0); CREATININE 1.67 mg/dL (0.70-1.30); Calcium 8.7 mg/dL (8.5-10.1); Chloride 100 mmol/L (98-107); Estimated GFR 39.99 (mL/min/1.73m2); Glucose 107 mg/dL (70-100); Magnesium 1.7 mg/dL (1.8-2.4); NT-proBNP 5815 pg/mL; Potassium 3.9 mmol/L (3.5-5.1); Sodium 137 mmol/L (136-145); Total Protein 7.7 g/dL (6.4-8.2)
[2019-02-17 13:47] LABS: Bilirubin Negative (Negative); Blood Negative (Negative); Clarity Clear (Clear); Glucose Negative (Negative); Ketones Negative (Negative); Leukocyte Esterase Negative (Negative); Nitrite Negative (Negative); pH 5.5 (5-8)
[2019-02-17 13:50] LABS: Troponin I 0.44 ng/mL (0.00-0.06)
--- NOTE | 2019-02-17 14:00 | DI.RAD_ITS ---
EXAM: XR CHEST 2V PA LATERAL INDICATION: cough, L wheeze. COMPARISON: XR PORTABLE CHEST AP from 01/28/2019 TECHNIQUE: 2D digital imaging was performed. FINDINGS: The lungs are free of infiltrate. There is no pleural effusion. Cardiomegaly is demonstrated. As vis ualized the hilar structures, tracheal air column and mediastinum appear intact. IMPRESSION: Cardiomegaly is noted. There is no evidence of congestive failure or pneumonia.
[2019-02-17 14:03] LABS: Diff Comment Agrees w/ Instrument
[2019-02-17 14:04] LABS: RBC Morphology Normal
[2019-02-17] MEDS: Aspirin 325 MG TAB PO (14:21)
[2019-02-17] MEDS: Clopidogrel 300 MG TAB PO (14:21)
[2019-02-17 14:26] LABS: INR 1.3 (0.9-1.1); PTT Activated 32.1 sec (21.0-31.4); Prothrombin Time 12.9 sec (9.3-11.0)
[2019-02-17] MEDS: Furosemide 20 MG/2 ML VIAL IVP ×2 (15:32→22:50)
[2019-02-17 17:48] LABS: Troponin I 0.56 ng/mL (0.00-0.06)
--- NOTE | 2019-02-17 19:11 | W.PM.HP.N ---
Date of service: 02/17/19 Time of Service: 19:11 Assessment and Plan Assessment and plan (1) NSTEMI (non-ST elevated myocardial infarction): Status: Acute Assessment and plan: Acute, in setting of known CAD and recent intermediate MPI. The patient is allergic to heparin. Loaded with plavix and asa. Diurese gently. Plan for transfer to [facility] where he was accepted in transfer as soon as bed is available. For now, monitor in the ICU with serial troponins, telemetry. Full code (2) Acute on chronic diastolic heart failure: Status: Acute Assessment and plan: Diurese gently, monitoring Cr, BUN/Cr, daily weights (3) Acute bronchitis: Status: Acute Assessment and plan: Check procalcitonin. Given description of occasionally purulent sputum and recent hospitalization, I am inclined to treat with antibiotics and antitussives. Start augmentin. (4) Acute kidney injury superimposed on chronic kidney disease: Status: Acute Assessment and plan: Monitor carefully while diuresing (5) Atrial fibrillation/flutter: Status: Acute Assessment and plan: Rate controlled. Not on anticoagulation. Continue home beat blockers. (6) DARRIN (obstructive sleep apnea): Status: Chronic Assessment and plan: Patient is supposed to follow up for a sleep study (7) DVT prophylaxis: Status: Acute Assessment and plan: TEDs + SCD's - allergic to heparin Consider arixtra (8) Discharge planning issues: Status: Acute Assessment and plan: Full code Accepted in transfer by [facility] History of Present Illness History of Present Illness Chief Complaint: I knew that something wasn't right because I just didn't feel right Narrative: Mr Mg is a 79 year old male with PMHx of CAD s/p CABG with a recent positive stress test (small, reversible area of ischemia in the apex), Afib/flutter, not on anticoagulation, allergy to heparin (rash), mild systolic CHF with EF of 50-55%, pulmonary hypertension, DARRIN, who presented to [facility] ED today with WADE, generalized weakness, an episode of left-sided chest pressure last night at rest, lasting for 30 minutes and accompanied by diaphoresis and palpitations. He was found to have an NSTEMI with troponin of 0.44, now up to 0.64, as well as acute exacerbation of CHF. He was given a dose of IV lasix. [facility] cardiology was consulted and, given the patient's allergy to heparin, recommended loading him with plavix and aspirin. The patient is asymptomatic at the time of my conversation with him, other than complaining of his cough which is sometimes productive of clear sputum and sometimes greenish. Denies fevers, rhinorrhea, sore throat. Endorses a chronic 2 pillow orthopnea. No weight gain or edema. Patient was accepted in transfer to [facility] by Dr Anthony Saucedo of cardiology, but no beds are available until tomorrow. Review of Systems Review of Systems Narrative: 12 systems reviewed. Pertinent positives and negatives are as per HPI. PFSH Medical History ASHD (arteriosclerotic heart disease) (Acute) CABG and multiple stents Atrial fibrillation/flutter (Acute) BPH (benign prostatic hyperplasia) (Chronic) CHF (congestive heart failure) (Acute) CKD (chronic kidney disease) (Acute) Hyperlipidemia (Acute) Hypertension (Chronic) Hypothyroidism (acquired) (Chronic) Memory changes (Acute 12/15/17) DARRIN (obstructive sleep apnea) (Chronic) Peripheral neuropathy (Acute) Pulmonary hypertension (Acute) Sleep apnea (Chronic) No longer using CPAP - sent back Spinal stenosis (Chronic 10/04/13) multiple procedures: epidural; operations Stress at home (Acute) -early dementia, daughter-breast cancer. Surgical History Cyst in hand (Acute) Status post excision on 10/12/2018 on palmar aspect of right hand. foot surgery right heart bypass x 3 spurs left great toe spurs/osteoarthritis stint x 1 Family History Mother , 87 Stroke Father , 48 Heart disease Hyperlipidemia Brother No problems noted. Maternal Grandfather No problems noted. Paternal Grandfather No problems noted. Maternal Grandmother , 98 No problems noted. Paternal Grandmother , 71 Heart disease Daughter , 53 No problems noted. Social History Smoking/Tobacco Use Status: Former Tobacco Use Quit Date: 04/28/83 Tobacco: How many years used: 20 Alcohol Intake: current Alcohol Intake frequency: holidays/special occasions only Drug use: Never Substance use type: does not use Caregiver/Support person: No Household members: spouse Housing: apartment Communication Needs: Hard of Hearing Do you need help understanding health information?: Rarely Pets and animals: Yes Pets and animals: dog(s) Sexually active: No Do you think of yourself as: straight/heterosexual Current gender identity: decline to answer What is your relationship status?: How often do you talk on the phone with friends or family?: three or more times per week How often do you get together with friends or relatives?: once per week How often do you attend pentecostalism or buddhist services?: decline to answer Do you belong to any clubs or organized social groups?: no Panel score (0-1 are the most socially isolated patients): 2 What type of physical activity do you participate in: none Frequency: 3-4 times per week Nora/Sabianism: No preference Special nora needs: No Seatbelt use: always 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 Do you feel safe at home: Yes Do you feel safe in your relationship?: Yes Meds Home Medications and Allergies Home Medications Medication Instructions Recorded Confirmed Type metoprolol succinate 25 mg PO DAILY #90 tab-cap 11/18/12 02/17/19 History nitroglycerin 0.4 mg SUBLINGUAL PRN 11/18/12 02/17/19 History aspirin 325 mg PO DAILY 10/31/15 02/17/19 History rosuvastatin 20 mg tablet 20 mg PO DAILY 12/31/17 02/17/19 History albuterol sulfate 90 mcg/actuation 1 - 2 puff INHALATION BID #18 gm 01/16/18 02/17/19 Rx aerosol inhaler cyclobenzaprine 10 mg tablet 10 mg PO Q12H PRN #30 tab 11/03/18 02/17/19 Rx fenofibrate micronized 134 mg 134 mg PO DAILY 11/03/18 02/17/19 History capsule omeprazole 40 mg capsule,delayed 40 mg PO DAILY #90 cap 11/03/18 02/17/19 Rx release potassium chloride 20 mEq See Rx Instructions .ROUTE .COMPLEX 01/05/19 02/17/19 History tablet,extended release citalopram 40 mg tablet 40 mg PO DAILY #90 tab 01/11/19 02/17/19 Rx acetaminophen [Acetaminophen Extra 1,000 mg PO BID 01/20/19 02/17/19 History Strength] levothyroxine 175 mcg tablet 175 mcg PO DAILY #30 tab 01/21/19 02/17/19 Rx losartan 100 mg tablet 100 mg PO DAILY #90 tab 01/25/19 02/17/19 Rx furosemide 20 mg PO BID #30 tab 02/01/19 02/17/19 Rx Allergies Allergy/AdvReac Type Severity Reaction Status Date / Time Heparin Analogues Allergy Mild RASH, Verified 02/17/19 12:43 SWELLING, ITCH morphine AdvReac Severe Nausea Verified 02/17/19 12:43 bupropion [From Wellbutrin] AdvReac Intermediate Hallucinati Verified 02/17/19 12:43 ons gabapentin AdvReac Intermediate Hallucinati Verified 02/17/19 12:43 ons codeine AdvReac Mild GI Verified 02/17/19 12:43 atorvastatin calcium AdvReac Pancreatiti Verified 02/17/19 12:43 [From Lipitor] s niacin AdvReac Pancreatiti Verified 02/17/19 12:43 [From Niaspan s Extended-Release] Exam Narrative Exam Narrative: General: very pleasant elderly male, sitting up at the edge of the bed, A&Ox3, sometimes needs the question asked several times so that he answers the right question Neurological: A&Ox3, appears distracted, no obvious focal deficits Psychiatric: mildly anxious Skin: visible skin intact HEENT: Atraumatic, normocephalic, EOMI, MMM, clear oropharynx, no submandibular or cervical lymphadenopathy, no goiter or JVD Cardiovascular: Irregularly irregular rhythm, no murmurs/rubs/gallops Lungs: coarse rhonchi and quiet rales at B bases Gastrointestinal: abdomen is soft, nontender, nondistended Genitourinary: deferred Extremities: +1 edema BLE's, no c/c Results Imaging Additional studies: EKG: Afib, frequent PVCs, HR 92, nonspecific diffuse ST depressions and T wave inversions. CXR: Cardiomegaly is noted. There is no evidence of congestive failure or pneumonia MPI 02/11/19: Specificity of this study is reduced by significant bowel uptake. There is a small, reversible area of ischemia in the apex. There is borderline Transient Ischemic Dilation (ratio 1.26) There is an intermediate probability of angiographc evidence of CAD Labs Result diagrams: 02/17/19 12:45 02/17/19 12:45 Labs: Laboratory Results - last 24 hr 02/17/19 02/17/19 02/17/19 12:45 12:45 12:45 WBC 12.38 H RBC 3.63 L Hgb 11.3 L Hct 35.3 L MCV 97.2 H MCH 31.1 MCHC 32.0 RDW 14.4 H Plt Count 238 MPV 10.3 Immature Gran % 0.2 Neutrophils % 81.4 Lymphocytes % 5.2 Monocytes % 12.8 Eosinophils % 0.2 Basophils % 0.2 Absolute Neutrophils 10.08 H Absolute Lymphocytes 0.64 L Absolute Monocytes 1.58 H Absolute Eosinophils 0.02 Absolute Basophils 0.02 Differential Comment Agrees w/ instrument RBC Morphology Normal PT 12.9 H INR 1.3 H APTT 32.1 H Sodium 137 Potassium 3.9 Chloride 100 Carbon Dioxide 24.2 Anion Gap 12.8 H BUN 33 H Creatinine 1.67 H Estimated GFR/1.73 m2 39.99 Glucose 107 H Calcium 8.7 Magnesium 1.7 L Total Bilirubin 1.9 H AST 19 ALT 19 Alkaline Phosphatase 64 Troponin I 0.44 H* NT-Pro-B Natriuret Pep 5815 H Total Protein 7.7 Albumin 3.3 L Urine Color Urine Clarity Urine pH Ur Specific [place] Urine Protein Urine Ketones Urine Blood Urine Nitrite Urine Bilirubin Urine Urobilinogen Ur Leukocyte Esterase Urine Glucose 02/17/19 02/17/19 13:37 16:45 WBC RBC Hgb Hct MCV MCH MCHC RDW Plt Count MPV Immature Gran % Neutrophils % Lymphocytes % Monocytes % Eosinophils % Basophils % Absolute Neutrophils Absolute Lymphocytes Absolute Monocytes Absolute Eosinophils Absolute Basophils Differential Comment RBC Morphology PT INR APTT Sodium Potassium Chloride Carbon Dioxide Anion Gap BUN Creatinine Estimated GFR/1.73 m2 Glucose Calcium Magnesium Total Bilirubin AST ALT Alkaline Phosphatase Troponin I 0.56 H* NT-Pro-B Natriuret Pep Total Protein Albumin Urine Color Yellow Urine Clarity Clear Urine pH 5.5 Ur Specific [place] 1.020 Urine Protein Negative Urine Ketones Negative Urine Blood Negative Urine Nitrite Negative Urine Bilirubin Negative Urine Urobilinogen 2.0 H Ur Leukocyte Esterase Negative Urine Glucose Negative Last Vital Signs Temp 36.1 C L 02/17/19 12:37 Pulse 99 H 02/17/19 16:46 Resp 30 H 02/17/19 15:50 BP 124/61 02/17/19 16:46 Pulse Ox 96 02/17/19 18:40
[2019-02-17 21:23] LABS: Troponin I 0.64 ng/mL (0.00-0.06)
[2019-02-17] MEDS: Rosuvastatin 10 MG TAB 20 MG PO (22:47)
[2019-02-17] MEDS: guaiFENesin 600 MG TABCR PO (22:48)
[2019-02-17] MEDS: MAGNESIUM SULFATE 2 GM/50 ML BAG IVPB (22:48)
[2019-02-17] MEDS: Cyclobenzaprine 10 MG TAB PO (22:50)
[2019-02-17] MEDS: Acetaminophen 325 MG TAB PO (22:50)
[2019-02-17] MEDS: Amoxicillin 875/Clav. 125 TAB PO (23:36)
[2019-02-18] VITALS (62 sets, daily range): BP systolic 92–185; BP diastolic 49–162; PULSE 42–115; RESP 8–35; TEMP 36.4–38.4; O2SAT 71–97
[2019-02-18] MEDS: Levothyroxine 175 MCG TAB PO (05:59)
[2019-02-18 07:04] LABS: HGB 11.7 g/dL (13.5-17.5); Mean Corp. HGB Concentration 31.6 g/dL (32.0-36.0); Mean Corpuscular Hemoglobin 30.7 pg (27.0-33.0); Mean Corpuscular Volume 97.1 fL (80-95); Mean Platelet Volume 10.1 fL (8.0-11.0); Platelet Count 232 x1000/uL (130-400); RBC 3.81 m/cumm (4.50-6.00); RBC Distribution Width 14.6 % (11.8-14.1); White Blood Cell Count 11.19 k/cumm (4.4-10.8)
[2019-02-18 07:21] LABS: Anion Gap 11.9 mmol/L (3-11); BUN 37 mg/dL (7-18); CO2 24.1 mmol/L (21.0-32.0); CREATININE 1.68 mg/dL (0.70-1.30); Calcium 8.9 mg/dL (8.5-10.1); Chloride 101 mmol/L (98-107); Estimated GFR 39.71 (mL/min/1.73m2); Glucose 111 mg/dL (70-100); Magnesium 2.2 mg/dL (1.8-2.4); Sodium 137 mmol/L (136-145)
[2019-02-18 07:24] LABS: Troponin I 0.41 ng/mL (0.00-0.06)
[2019-02-18 08:12] LABS: Procalcitonin 0.4 ng/mL
--- NOTE | 2019-02-18 08:27 | PGE_ITS ---
Date of Service Date of service: 02/18/19 Time of Service: 08:28 Subjective Subjective Interval history since last seen: Wheezy and crackly at bases. Mentation is wifty. Chronic Afib, rate low 100's. On 1L 87-98%. Troponin turned around - 0.41 this am. Awaiting bed Objective Objective Clinical Data: Abnormal lab results 02/17/19 02/17/19 02/17/19 Range/Units 12:45 12:45 12:45 WBC 12.38 H (4.4-10.8) k/cumm RBC 3.63 L (4.50-6.00) m/cumm Hgb 11.3 L (13.5-17.5) g/dL Hct 35.3 L (40.0-50.0) % MCV 97.2 H (80-95) fL MCHC (32.0-36.0) g/dL RDW 14.4 H (11.8-14.1) % Absolute Neutrophils 10.08 H (1.2-6.7) k/cumm Absolute Lymphocytes 0.64 L (1.2-3.4) k/cumm Absolute Monocytes 1.58 H (0.11-0.7) k/cumm PT 12.9 H (9.3-11.0) sec INR 1.3 H (0.9-1.1) APTT 32.1 H (21.0-31.4) sec Anion Gap 12.8 H (3-11) mmol/L BUN 33 H (7-18) mg/dL Creatinine 1.67 H (0.70-1.30) mg/dL Glucose 107 H (70-100) mg/dL Magnesium 1.7 L (1.8-2.4) mg/dL Total Bilirubin 1.9 H (0.2-1.0) mg/dL Troponin I 0.44 H* (0.00-0.06) ng/mL NT-Pro-B Natriuret Pep 5815 H ( - 299) pg/mL Albumin 3.3 L (3.4-5.0) g/dL Urine Urobilinogen (Up TO 0.2) EU/dL 02/17/19 02/17/19 02/17/19 Range/Units 13:37 16:45 20:45 WBC (4.4-10.8) k/cumm RBC (4.50-6.00) m/cumm Hgb (13.5-17.5) g/dL Hct (40.0-50.0) % MCV (80-95) fL MCHC (32.0-36.0) g/dL RDW (11.8-14.1) % Absolute Neutrophils (1.2-6.7) k/cumm Absolute Lymphocytes (1.2-3.4) k/cumm Absolute Monocytes (0.11-0.7) k/cumm PT (9.3-11.0) sec INR (0.9-1.1) APTT (21.0-31.4) sec Anion Gap (3-11) mmol/L BUN (7-18) mg/dL Creatinine (0.70-1.30) mg/dL Glucose (70-100) mg/dL Magnesium (1.8-2.4) mg/dL Total Bilirubin (0.2-1.0) mg/dL Troponin I 0.56 H* 0.64 H* (0.00-0.06) ng/mL NT-Pro-B Natriuret Pep ( - 299) pg/mL Albumin (3.4-5.0) g/dL Urine Urobilinogen 2.0 H (Up TO 0.2) EU/dL 02/18/19 02/18/19 Range/Units 06:45 06:45 WBC 11.19 H (4.4-10.8) k/cumm RBC 3.81 L (4.50-6.00) m/cumm Hgb 11.7 L (13.5-17.5) g/dL Hct 37.0 L (40.0-50.0) % MCV 97.1 H (80-95) fL MCHC 31.6 L (32.0-36.0) g/dL RDW 14.6 H (11.8-14.1) % Absolute Neutrophils (1.2-6.7) k/cumm Absolute Lymphocytes (1.2-3.4) k/cumm Absolute Monocytes (0.11-0.7) k/cumm PT (9.3-11.0) sec INR (0.9-1.1) APTT (21.0-31.4) sec Anion Gap 11.9 H (3-11) mmol/L BUN 37 H (7-18) mg/dL Creatinine 1.68 H (0.70-1.30) mg/dL Glucose 111 H (70-100) mg/dL Magnesium (1.8-2.4) mg/dL Total Bilirubin (0.2-1.0) mg/dL Troponin I 0.41 H* (0.00-0.06) ng/mL NT-Pro-B Natriuret Pep ( - 299) pg/mL Albumin (3.4-5.0) g/dL Urine Urobilinogen (Up TO 0.2) EU/dL Vital Signs Temperature 36.8 C 02/18/19 03:40 Temperature Source Temporal Artery Scan 02/18/19 03:40 Pulse 101 H 02/18/19 03:40 Pulse 104 H 02/18/19 06:10 Respiratory Rate 32 H 02/18/19 06:10 Respiratory Effort 02/18/19 03:40 Respiratory Depth Normal 02/18/19 03:40 Respiratory Pattern Tachypnea 02/18/19 03:40 Blood Pressure 92/62 L 02/18/19 03:49 Blood Pressure Mean 69 02/18/19 03:49 Blood Pressure Position Sitting 02/18/19 03:40 Pulse Oximetry 94 L 02/18/19 06:10 Oxygen Delivery Method Nasal Cannula 02/18/19 03:40 Oxygen Flow Rate 2 02/18/19 03:40 Pain Level 3 02/18/19 03:40 Intake & Output 02/17/19 02/17/19 02/18/19 11:59 23:59 11:59 Intake Total 50 / 50 Output Total 850 / 850 100 / 100 Balance -850 / -850 -50 / -50 Weight 137.1 kg 138.2 kg Intake: IV 50 / 50 Output: Urine 850 / 850 100 / 100 Other: Urine Color Straw Urine Appearance Clear Urine Odor None Voiding Methods Urinal Laboratory Results WBC 11.19 k/cumm (4.4-10.8) H 02/18/19 06:45 RBC 3.81 m/cumm (4.50-6.00) L 02/18/19 06:45 Hgb 11.7 g/dL (13.5-17.5) L 02/18/19 06:45 Hct 37.0 % (40.0-50.0) L 02/18/19 06:45 MCV 97.1 fL (80-95) H 02/18/19 06:45 MCH 30.7 pg (27.0-33.0) 02/18/19 06:45 MCHC 31.6 g/dL (32.0-36.0) L 02/18/19 06:45 RDW 14.6 % (11.8-14.1) H 02/18/19 06:45 Plt Count 232 x1000/uL (130-400) 02/18/19 06:45 MPV 10.1 fL (8.0-11.0) 02/18/19 06:45 Immature Gran % 0.2 02/17/19 12:45 Neutrophils % 81.4 02/17/19 12:45 Lymphocytes % 5.2 02/17/19 12:45 Monocytes % 12.8 02/17/19 12:45 Eosinophils % 0.2 02/17/19 12:45 Basophils % 0.2 02/17/19 12:45 Absolute Neutrophils 10.08 k/cumm (1.2-6.7) H 02/17/19 12:45 Absolute Lymphocytes 0.64 k/cumm (1.2-3.4) L 02/17/19 12:45 Absolute Monocytes 1.58 k/cumm (0.11-0.7) H 02/17/19 12:45 Absolute Eosinophils 0.02 k/cumm (0.0-0.7) 02/17/19 12:45 Absolute Basophils 0.02 k/cumm (0.0-0.2) 02/17/19 12:45 Differential Comment Agrees w/ instrument 02/17/19 12:45 RBC Morphology Normal 02/17/19 12:45 PT 12.9 sec (9.3-11.0) H 02/17/19 12:45 INR 1.3 (0.9-1.1) H 02/17/19 12:45 APTT 32.1 sec (21.0-31.4) H 02/17/19 12:45 Sodium 137 mmol/L (136-145) 02/18/19 06:45 Potassium 4.0 mmol/L (3.5-5.1) 02/18/19 06:45 Chloride 101 mmol/L (98-107) 02/18/19 06:45 Carbon Dioxide 24.1 mmol/L (21.0-32.0) 02/18/19 06:45 Anion Gap 11.9 mmol/L (3-11) H 02/18/19 06:45 BUN 37 mg/dL (7-18) H 02/18/19 06:45 Creatinine 1.68 mg/dL (0.70-1.30) H 02/18/19 06:45 Estimated GFR/1.73 m2 39.71 (mL/min/1.73m2) 02/18/19 06:45 Glucose 111 mg/dL (70-100) H 02/18/19 06:45 Calcium 8.9 mg/dL (8.5-10.1) 02/18/19 06:45 Magnesium 2.2 mg/dL (1.8-2.4) 02/18/19 06:45 Total Bilirubin 1.9 mg/dL (0.2-1.0) H 02/17/19 12:45 AST 19 U/L (15-37) 02/17/19 12:45 ALT 19 U/L (16-63) 02/17/19 12:45 Alkaline Phosphatase 64 U/L (46-116) 02/17/19 12:45 Troponin I 0.41 ng/mL (0.00-0.06) H* 02/18/19 06:45 NT-Pro-B Natriuret Pep 5815 pg/mL (-299) H 02/17/19 12:45 Total Protein 7.7 g/dL (6.4-8.2) 02/17/19 12:45 Albumin 3.3 g/dL (3.4-5.0) L 02/17/19 12:45 Procalcitonin 0.4 ng/mL 02/18/19 06:45 Urine Color Yellow (Yellow) 02/17/19 13:37 Urine Clarity Clear (Clear) 02/17/19 13:37 Urine pH 5.5 (5-8) 02/17/19 13:37 Ur Specific [place] 1.020 (1.005-1.025) 02/17/19 13:37 Urine Protein Negative mg/dL (Negative) 02/17/19 13:37 Urine Ketones Negative mg/dL (Negative) 02/17/19 13:37 Urine Blood Negative (Negative) 02/17/19 13:37 Urine Nitrite Negative (Negative) 02/17/19 13:37 Urine Bilirubin Negative (Negative) 02/17/19 13:37 Urine Urobilinogen 2.0 EU/dL (Up TO 0.2) H 02/17/19 13:37 Ur Leukocyte Esterase Negative (Negative) 02/17/19 13:37 Urine Glucose Negative mg/dL (Negative) 02/17/19 13:37
--- NOTE | 2019-02-18 09:06 | PDOC.CMIN ---
Care Management Initial Assess REASON FOR HOSPITALIZATION:: NSTEMI, CHF PAST MEDICAL HISTORY/PAST SURGICAL HISTORY:: SHD, CABG and multiple stents, CHF, Hyperlipidemia, Hypertension, Hypothyroidism, Memory changes, Sleep apnea, No longer using CPAP, Spinal stenosis, Surgical procedures: Cyst in hand removed, right foot surgery, cardiac bypass PREVIOUS FUNCTIONAL STATUS/SOCIAL/FAMILY SUPPORTS:: Nitesh resides in [place], [place] with his spouse Luis whom he cares for at home with dementia. The couple also have two daughters who reside locally and are very supportive and another daughter in [place], whom they are close with as well. Gautam reports they had a fourth daughter who . Gautam recently moved back to [place] from [place], [place] in September 2018. He was recently admitted to [facility] and discharged with new referrals for [facility]. He admits to having difficulty with his own memory and his daughter helps him with his finances and he and Luis's medications. CURRENT FUNCTIONAL STATUS:: Gautam is currently in the ICU, awaiting a bed at [facility]. Anticipate he will transfer today per MD. ADVANCE DIRECTIVES:: Nitesh states he has taken care of his end of life decisions. Has patient been provided with information about the portal?: Yes Did the patient sign up for the portal?: No CODE STATUS:: Full Code INSURANCE COVERAGE / FINANCIAL ISSUES:: Medicare CURRENT HOME/COMMUNITY SERVICES/EQUIPMENT:: Connected after last admission to [facility], and [facility] at [facility]. PRIMARY CARE PHYSICIAN:: PATIENT/FAMILY EDUCATION NEEDS:: Discharge education, limitations and follow up plan of care. including ask me three and self management. ANTICIPATED BARRIERS TO DISCHARGE:: None TRANSPORTATION:: Family to transport at time of discharge. PLAN:: Nitesh will transfer to [facility] when a bed becomes available, per MD. He will transport via EMS coordinated by the [facility].
[2019-02-18] MEDS: Acetaminophen 500 MG TAB 1000 MG PO ×2 (09:20→19:27)
[2019-02-18] MEDS: Furosemide 20 MG/2 ML VIAL IVP ×2 (09:20→11:46)
[2019-02-18] MEDS: guaiFENesin 600 MG TABCR PO ×2 (09:21→19:27)
[2019-02-18] MEDS: Fenofibrate, Micronized 145 MG TAB PO (09:21)
[2019-02-18] MEDS: Amoxicillin 875/Clav. 125 TAB PO (09:21)
[2019-02-18] MEDS: Pantoprazole 40 MG TABCR PO (09:22)
[2019-02-18] MEDS: Clopidogrel 75 MG TAB PO (09:22)
[2019-02-18] MEDS: Aspirin 81 MG CHEW PO (09:22)
[2019-02-18] MEDS: Metoprolol CR 25 MG TABCR PO (09:22)
[2019-02-18] MEDS: Benzonatate 100 MG CAP PO ×3 (09:22→19:27)
[2019-02-18] MEDS: Citalopram 20 MG TAB 40 MG PO (09:22)
[2019-02-18] MEDS: Normal Saline Flush 10 ML SYR IVP (09:31)
--- NOTE | 2019-02-18 10:40 | DI.RAD_ITS ---
EXAM: XR PORTABLE CHEST AP INDICATION: worsening heart failure and productive cough. COMPARISON: XR CHEST 2V PA LATERAL from 02/17/2019 TECHNIQUE: 2D digital imaging was performed. FINDINGS: The heart is enlarged unchanged. Increased interstitial markings are noted in the lungs. Prominence of the upper lobe vasculature is identified. The findings be consistent with pulmonary venous hyper tension and mild congestive failure.
[2019-02-18] MEDS: PIPERACILLIN/TAZO 3.375 GM in Normal Saline 50 ML IVPB ×3 (10:51→22:13)
[2019-02-18] MEDS: Levalbuterol 0.63 MG/3 ML UPD VIAL (10:54)
--- NOTE | 2019-02-18 15:44 | W.PM.DS.N ---
Date of service: 02/18/19 Time of Service: 15:44 DS: Diagnosis Discharge Diagnosis (1) NSTEMI (non-ST elevated myocardial infarction): Status: Acute (2) Acute on chronic diastolic heart failure: Status: Acute (3) Acute bronchitis: Status: Acute (4) Acute kidney injury superimposed on chronic kidney disease: Status: Acute (5) Atrial fibrillation/flutter: Status: Acute (6) DARRIN (obstructive sleep apnea): Status: Chronic Discharge Plan Disposition Patient Disposition: [facility] Condition: Stable Discharge Details Chief Complaint: SOB Clinical Impression: CHF (congestive heart failure), Non-ST elevated myocardial infarction (non-STEMI) Reason For Visit: NSTEMI, CHF Admit Date/Time: 02/17/19 16:02 Admit Provider: Lexy Fields Attending Provider: Lexy Fields Primary Care Provider: Jazzmine Rodas ED Provider: Carl Loera Hospital Course Hospital Course: Mr Mg is a 79 year old male with PMHx of CAD s/p CABGx3, as well as 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 His troponin went from 0.44 to 0.64, and back down to 0.41 this morning. He is allergic to heparin (rash/swelling/itch), so he was loaded with plavix and aspirin, on which he was continued. He was continued on his home beta giovana. The patient was transition from IV lasix boluses to lasix drip. It is important to note that on 02/11/19 the patient had an intermediate probability MPI and, given his current presentation, would benefit from a cardiac catheterization which [facility] cannot provide and which necessitates this transfer. The patient did require initiation of IV antibiotics (vancomycin, zosyn) due to purulent sputum production and a temp of 38.4. His CXR is negative, so this is most likely bronchitis, but he did have a recent hospital admission. He should be offered BiPAP at night as he does have known obstructive sleep apnea. The patient is hemodynamically stable for transport and stransfer at this time. We appreciate the assistance of [facility] clinical team and wish the patient well. Home Meds and New Rx's Prescriptions: No Action levothyroxine 175 mcg tablet 175 mcg PO DAILY Qty: 30 RF: 0 rosuvastatin 20 mg tablet 20 mg PO DAILY RF: 0 potassium chloride 20 mEq tablet extended release See Rx Instructions .ROUTE .COMPLEX RF: 0 fenofibrate micronized 134 mg capsule 134 mg PO DAILY RF: 0 omeprazole 40 mg capsule,delayed release(DR/EC) 40 mg PO DAILY Qty: 90 RF: 4 cyclobenzaprine 10 mg tablet 10 mg PO Q12H PRN (Reason: muscle spasm) Qty: 30 RF: 4 losartan 100 mg tablet 100 mg PO DAILY Qty: 90 RF: 3 nitroglycerin 0.4 MG tablet, sublingual 0.4 mg Sublingual PRN RF: 0 metoprolol succinate 25 MG tablet extended release 24 hr 25 mg PO DAILY Qty: 90 RF: 4 albuterol sulfate [ProAir HFA] 90 mcg/actuation HFA aerosol inhaler 1 - 2 puff Inhalation BID Qty: 18 RF: 6 citalopram 40 mg tablet 40 mg PO DAILY Qty: 90 RF: 4 aspirin 325 MG tablet 325 mg PO DAILY RF: 0 acetaminophen [Acetaminophen Extra Strength] 500 mg Tablet 1,000 mg PO BID RF: 0 furosemide 20 mg tablet 20 mg PO BID Qty: 30 RF: 4 Discharge Instructions Activity:: OOB to chair Equipment/Supplies:: No Equipment Needed Diet:: Low Sodium Discharge Orders Discharge Orders: Discharge Order (Routine); Ordered 02/18/19 Ordered By: Lexy Fields DS: Summary Status at Discharge Functional status at discharge: independent ambulation Overall status at discharge: patient is back to baseline Mental Status: mental status grossly normal Speech and Movement: speech and movement normal Mood: congruent mood Affect: normal affect and anxious affect Exam Narrative Exam Narrative: General: very pleasant elderly male, obese, not tachypneic when sitting up, A&Ox3, [place] HEENT: EOMI, MMM Heart: irregularly irregular rhythm, no m/r/g Lungs: Wheezing on expiration B with quiet rales at B bases GI: abdomen is soft, nontender, nondistended Extremities: +1 BLE edema, no c/c Psych Mental Status: mental status grossly normal Speech and Movement: speech and movement normal Mood: congruent mood Affect: normal affect and anxious affect DS: Data Vitals/I&O Vitals and I&O: Vital Signs Temperature 36.6 C 02/18/19 13:00 Temperature Source Temporal Artery Scan 02/18/19 13:00 Pulse 105 H 02/18/19 13:00 Pulse 104 H 02/18/19 06:10 Respiratory Rate 26 H 02/18/19 10:57 Respiratory Effort 02/18/19 13:00 Respiratory Depth Normal 02/18/19 13:00 Respiratory Pattern Tachypnea 02/18/19 13:00 Blood Pressure 92/62 L 02/18/19 03:49 Blood Pressure Mean 69 02/18/19 03:49 Blood Pressure Position Sitting 02/18/19 13:00 Pulse Oximetry 95 02/18/19 13:00 Oxygen Delivery Method Nasal Cannula 02/18/19 13:00 Oxygen Flow Rate 1 02/18/19 13:00 Fraction of Inspired Oxygen (FIO2) 21 02/18/19 10:57 Pain Level 0 02/18/19 13:00 Intake & Output 02/17/19 02/18/19 02/18/19 23:59 11:59 23:59 Intake Total 100 / 309.417 209.417 / 309.417 Output Total 850 / 850 350 / 1200 850 / 1200 Balance -850 / -850 -250 / -890.583 -640.583 / -890.583 Weight 137.1 kg 138.2 kg Intake: IV 100 / 309.417 209.417 / 309.417 Output: Urine 850 / 850 350 / 1200 850 / 1200 Other: Urine Color Straw Dark Nnamdi Yellow Light Nnamdi Urine Appearance Clear Clear Clear Urine Odor None Normal Comment Voided 300cc clear dark nnamdi urine. Furosemide gtt infusing at 2.5cc/hr. Voiding Methods Urinal Urinal Data Completed and Pending Completed studies during hospitalization [Text1]: CXR 02/17/19: Cardiomegaly is noted. There is no evidence of congestive failure or pneumonia. CXR 02/18/19: The heart is enlarged unchanged. Increased interstitial markings are noted in the lungs. Prominence of the upper lobe vasculature is identified. The findings be consistent with pulmonary venous hypertension and mild congestive failure. MPI 02/11/19: Specificity of this study is reduced by significant bowel uptake. There is a small, reversible area of ischemia in the apex. There is borderline Transient Ischemic Dilation (ratio 1.26) There is an intermediate probability of angiographc evidence of CAD TTE 01/29/19: This study was limited by poor windows. Left Ventricle : LV is mildly enlarged. Mild concentric left ventricular hypertrophy. Unable to fully delineate diastolic function due to a rhythm. Patient likely has elevated filling pressures Low normal estimated EF 50 to 55% There is normal LV segmental wall motion. 50-55% Right Ventricle : dilated in size. function is mild to moderately reduced Right ventricle is mildly hypokinetic. Atria : Left atrium is moderately dilated. Right atrium is mildly dilated. Aortic Valve : sclerotic probably trileaflet. No aortic regurgitation is present. There is no aortic valvular stenosis. Mitral Valve : Mitral valve leaflets are mildly thickened with likely tethering of the posterior mitral leaflet. Moderate mitral regurgitation. Eccentric posterior directed jet with significant Coanda effect Tricuspid Valve : dilated annulus, mildly thickened valve. TR is severe with hepatic reversal of flow. RVSP est to be >50mmhg. TR max 3.8m/s Great Vessels : normal size aortic root. Pericardium : No pericardial effusion. The IVC is mildly dilated with greater than 50% collapse. This corresponds to an estimated RA pressure of 8 mmHg Labs on day of discharge: Labs from last 24 hours 02/18/19 02/18/19 02/18/19 06:45 06:45 06:45 WBC 11.19 H RBC 3.81 L Hgb 11.7 L Hct 37.0 L MCV 97.1 H MCH 30.7 MCHC 31.6 L RDW 14.6 H Plt Count 232 MPV 10.1 Sodium 137 Potassium 4.0 Chloride 101 Carbon Dioxide 24.1 Anion Gap 11.9 H BUN 37 H Creatinine 1.68 H Estimated GFR/1.73 m2 39.71 Glucose 111 H Calcium 8.9 Magnesium 2.2 Troponin I 0.41 H* Procalcitonin 0.4 02/17/19 02/17/19 20:45 16:45 WBC RBC Hgb Hct MCV MCH MCHC RDW Plt Count MPV Sodium Potassium Chloride Carbon Dioxide Anion Gap BUN Creatinine Estimated GFR/1.73 m2 Glucose Calcium Magnesium Troponin I 0.64 H* 0.56 H* Procalcitonin 02/18/19 10:30 Blood Blood Culture - Pending 02/18/19 10:15 Blood Blood Culture - Pending Preliminary micro results at discharge 02/17/19 22:08 Sputum Culture - Preliminary Sputum Normal Ki[place] 02/18/19 10:30 Blood Culture - Pending Blood 02/18/19 10:15 Blood Culture - Pending Blood [facility] Family History Mother , 87 Stroke Father , 48 Heart disease Hyperlipidemia Brother No problems noted. Maternal Grandfather No problems noted. Paternal Grandfather No problems noted. Maternal Grandmother , 98 No problems noted. Paternal Grandmother , 71 Heart disease Daughter , 53 No problems noted. Social History Smoking/Tobacco Use Status: Former Tobacco Use Quit Date: 04/28/83 Tobacco: How many years used: 20 Alcohol Intake: current Alcohol Intake frequency: holidays/special occasions only Drug use: Never Substance use type: does not use Caregiver/Support person: No Household members: spouse Housing: apartment Communication Needs: Hard of Hearing Do you need help understanding health information?: Rarely Pets and animals: Yes Pets and animals: dog(s) Sexually active: No Do you think of yourself as: straight/heterosexual Current gender identity: decline to answer What is your relationship status?: How often do you talk on the phone with friends or family?: three or more times per week How often do you get together with friends or relatives?: once per week How often do you attend jainism or hoahaoism services?: decline to answer Do you belong to any clubs or organized social groups?: no Panel score (0-1 are the most socially isolated patients): 2 What type of physical activity do you participate in: none Frequency: 3-4 times per week Nora/Mormon: No preference Special nora needs: No Seatbelt use: always Drive intox or ride w/intox driver medic: No Do you feel safe at home: Yes Do you feel safe in your relationship?: Yes
[2019-02-18] MEDS: Rosuvastatin 10 MG TAB 20 MG PO (19:27)
[2019-02-19] VITALS (23 sets, daily range): BP systolic 110–153; BP diastolic 66–78; PULSE 66–110; RESP 1–29; TEMP 36.4–37.5; O2SAT 94–99
[2019-02-19] MEDS: PIPERACILLIN/TAZO 3.375 GM in Normal Saline 50 ML IVPB ×2 (04:26→10:44)
[2019-02-19] MEDS: Albuterol/Ipratropium 3 ML UPD VIAL UPD (05:35)
[2019-02-19] MEDS: Levothyroxine 175 MCG TAB PO (05:36)
[2019-02-19 06:59] LABS: Abs Immature Grans 0.02 k/cumm (0.0-0.09); Absolute Basophil Count 0.03 k/cumm (0.0-0.2); Absolute Eosinophil Count 0.52 k/cumm (0.0-0.7); Absolute Lymphocyte Count 0.61 k/cumm (1.2-3.4); Absolute Monocyte Count 1.24 k/cumm (0.11-0.7); Absolute Neutrophil Count 7.06 k/cumm (1.2-6.7); Basophils % 0.3; Eosinophils % 5.5; HCT 35.6 % (40.0-50.0); HGB 11.1 g/dL (13.5-17.5); Immature Grans % 0.2; Lymphocytes % 6.4; Mean Corp. HGB Concentration 31.2 g/dL (32.0-36.0); Mean Corpuscular Hemoglobin 30.7 pg (27.0-33.0); Mean Corpuscular Volume 98.6 fL (80-95); Mean Platelet Volume 9.8 fL (8.0-11.0); Monocytes % 13.1; Neutrophils % 74.5; Platelet Count 239 x1000/uL (130-400); RBC 3.61 m/cumm (4.50-6.00); RBC Distribution Width 14.4 % (11.8-14.1); White Blood Cell Count 9.48 k/cumm (4.4-10.8)
[2019-02-19 07:19] LABS: BUN 34 mg/dL (7-18); CREATININE 1.63 mg/dL (0.70-1.30); Calcium 8.7 mg/dL (8.5-10.1); Chloride 101 mmol/L (98-107); Estimated GFR 41.12 (mL/min/1.73m2); Glucose 127 mg/dL (70-100); Magnesium 1.9 mg/dL (1.8-2.4); Potassium 3.3 mmol/L (3.5-5.1); Sodium 140 mmol/L (136-145)
--- NOTE | 2019-02-19 08:35 | W.PM.PROGNOT ---
Subjective Subjective Interval history since last seen: Lungs sound better, less wheezing, crackles improved. 94% on 1L. Did not use BiPAP last night. Lasix gtt at 2 mg/hr. 1150 cc out in 12 hrs. Blood in stevenson - dark nnamdi, large blood on urine dip. No fever, no CP. Objective Objective Clinical Data: Abnormal lab results 02/19/19 02/19/19 Range/Units 06:42 06:42 RBC 3.61 L (4.50-6.00) m/cumm Hgb 11.1 L (13.5-17.5) g/dL Hct 35.6 L (40.0-50.0) % MCV 98.6 H (80-95) fL MCHC 31.2 L (32.0-36.0) g/dL RDW 14.4 H (11.8-14.1) % Absolute Neutrophils 7.06 H (1.2-6.7) k/cumm Absolute Lymphocytes 0.61 L (1.2-3.4) k/cumm Absolute Monocytes 1.24 H (0.11-0.7) k/cumm Potassium 3.3 L (3.5-5.1) mmol/L BUN 34 H (7-18) mg/dL Creatinine 1.63 H (0.70-1.30) mg/dL Glucose 127 H (70-100) mg/dL Vital Signs Temperature 36.6 C 02/19/19 04:20 Temperature Source Temporal Artery Scan 02/19/19 04:20 Pulse 86 02/19/19 06:02 Pulse 85 02/19/19 06:02 Respiratory Rate 20 02/19/19 07:53 Respiratory Effort 02/19/19 07:53 Respiratory Depth Normal 02/19/19 07:53 Respiratory Pattern Normal 02/19/19 07:53 Blood Pressure 153/71 H 02/19/19 06:02 Blood Pressure Mean 92 02/19/19 06:02 Blood Pressure Position Sitting 02/18/19 15:45 Pulse Oximetry 97 02/19/19 07:46 Oxygen Delivery Method Nasal Cannula 02/19/19 07:46 Oxygen Flow Rate 1 02/19/19 07:46 Fraction of Inspired Oxygen (FIO2) 21 02/18/19 10:57 Pain Level 0 02/19/19 04:20 Intake & Output 02/18/19 02/18/19 02/19/19 11:59 23:59 11:59 Intake Total 100 / 1052.417 952.417 / 1052.417 Output Total 350 / 1750 1400 / 1750 1150 / 1150 Balance -250 / -697.583 -447.583 / -697.583 -1150 / -1150 Weight 138.2 kg 132.4 kg Intake: IV 100 / 412.417 312.417 / 412.417 Oral 640 / 640 Output: Urine 350 / 1750 1400 / 1750 1150 / 1150 Other: Urine Color Dark Nnamdi Yellow Dark Red Dark Red Bright Red Urine Appearance Clear Clear Clear Sediment Urine Odor Normal Comment Voided 300cc clear dark nnamdi urine. Stevenson in place, draining clear blood tinged urine. Stevenson in place, draining bloody urine. Stool Occult Blood Negative Stool Size Moderate Stool Characteristics Soft Formed Voiding Methods Urinal Laboratory Results WBC 9.48 k/cumm (4.4-10.8) 02/19/19 06:42 RBC 3.61 m/cumm (4.50-6.00) L 02/19/19 06:42 Hgb 11.1 g/dL (13.5-17.5) L 02/19/19 06:42 Hct 35.6 % (40.0-50.0) L 02/19/19 06:42 MCV 98.6 fL (80-95) H 02/19/19 06:42 MCH 30.7 pg (27.0-33.0) 02/19/19 06:42 MCHC 31.2 g/dL (32.0-36.0) L 02/19/19 06:42 RDW 14.4 % (11.8-14.1) H 02/19/19 06:42 Plt Count 239 x1000/uL (130-400) 02/19/19 06:42 MPV 9.8 fL (8.0-11.0) 02/19/19 06:42 Immature Gran % 0.2 02/19/19 06:42 Neutrophils % 74.5 02/19/19 06:42 Lymphocytes % 6.4 02/19/19 06:42 Monocytes % 13.1 02/19/19 06:42 Eosinophils % 5.5 02/19/19 06:42 Basophils % 0.3 02/19/19 06:42 Absolute Neutrophils 7.06 k/cumm (1.2-6.7) H 02/19/19 06:42 Absolute Lymphocytes 0.61 k/cumm (1.2-3.4) L 02/19/19 06:42 Absolute Monocytes 1.24 k/cumm (0.11-0.7) H 02/19/19 06:42 Absolute Eosinophils 0.52 k/cumm (0.0-0.7) 02/19/19 06:42 Absolute Basophils 0.03 k/cumm (0.0-0.2) 02/19/19 06:42 Differential Comment Agrees w/ instrument 02/17/19 12:45 RBC Morphology Normal 02/17/19 12:45 PT 12.9 sec (9.3-11.0) H 02/17/19 12:45 INR 1.3 (0.9-1.1) H 02/17/19 12:45 APTT 32.1 sec (21.0-31.4) H 02/17/19 12:45 Sodium 140 mmol/L (136-145) 02/19/19 06:42 Potassium 3.3 mmol/L (3.5-5.1) L 02/19/19 06:42 Chloride 101 mmol/L (98-107) 02/19/19 06:42 Carbon Dioxide 30.0 mmol/L (21.0-32.0) 02/19/19 06:42 Anion Gap 9.0 mmol/L (3-11) 02/19/19 06:42 BUN 34 mg/dL (7-18) H 02/19/19 06:42 Creatinine 1.63 mg/dL (0.70-1.30) H 02/19/19 06:42 Estimated GFR/1.73 m2 41.12 (mL/min/1.73m2) 02/19/19 06:42 Glucose 127 mg/dL (70-100) H 02/19/19 06:42 Calcium 8.7 mg/dL (8.5-10.1) 02/19/19 06:42 Magnesium 1.9 mg/dL (1.8-2.4) 02/19/19 06:42 Total Bilirubin 1.9 mg/dL (0.2-1.0) H 02/17/19 12:45 AST 19 U/L (15-37) 02/17/19 12:45 ALT 19 U/L (16-63) 02/17/19 12:45 Alkaline Phosphatase 64 U/L (46-116) 02/17/19 12:45 Troponin I 0.41 ng/mL (0.00-0.06) H* 02/18/19 06:45 NT-Pro-B Natriuret Pep 5815 pg/mL (-299) H 02/17/19 12:45 Total Protein 7.7 g/dL (6.4-8.2) 02/17/19 12:45 Albumin 3.3 g/dL (3.4-5.0) L 02/17/19 12:45 Procalcitonin 0.4 ng/mL 02/18/19 06:45 Urine Color Yellow (Yellow) 02/17/19 13:37 Urine Clarity Clear (Clear) 02/17/19 13:37 Urine pH 5.5 (5-8) 02/17/19 13:37 Ur Specific [place] 1.020 (1.005-1.025) 02/17/19 13:37 Urine Protein Negative mg/dL (Negative) 02/17/19 13:37 Urine Ketones Negative mg/dL (Negative) 02/17/19 13:37 Urine Blood Negative (Negative) 02/17/19 13:37 Urine Nitrite Negative (Negative) 02/17/19 13:37 Urine Bilirubin Negative (Negative) 02/17/19 13:37 Urine Urobilinogen 2.0 EU/dL (Up TO 0.2) H 02/17/19 13:37 Ur Leukocyte Esterase Negative (Negative) 02/17/19 13:37 Urine Glucose Negative mg/dL (Negative) 02/17/19 13:37
[2019-02-19] MEDS: Pantoprazole 40 MG TABCR PO (08:57)
[2019-02-19] MEDS: Clopidogrel 75 MG TAB PO (08:57)
[2019-02-19] MEDS: guaiFENesin 600 MG TABCR PO (08:57)
[2019-02-19] MEDS: Citalopram 20 MG TAB 40 MG PO (08:57)
[2019-02-19] MEDS: Benzonatate 100 MG CAP PO ×2 (08:57→13:45)
[2019-02-19] MEDS: Aspirin 81 MG CHEW PO (08:58)
[2019-02-19] MEDS: Acetaminophen 500 MG TAB 1000 MG PO (08:58)
[2019-02-19] MEDS: Metoprolol CR 25 MG TABCR PO (08:58)
[2019-02-19] MEDS: Potassium Chloride 20 MEQ TABCR 40 MEQ PO (08:59)
[2019-02-19] MEDS: Levalbuterol 1.25 MG/3 ML UPD VIAL UPD (09:29)
[2019-02-19] MEDS: Fenofibrate, Micronized 145 MG TAB PO (10:44)
--- NOTE | 2019-02-19 16:28 | CMPROGNOTE_ITS ---
Care Management Progress Note CM met with Nitesh and his daughter to review progress on community based referrals from last admission. MOW has not begun because Nitesh has been re-admitted. Concern around assets becoming a barrier to LTC Medicaid for Luis were discussed; CM faxed request to Rachell Viveros at [facility] to request F/U info with focusing on LTC Medicaid for Luis. Nitesh will transfer to [facility] when a bed becomes available, per MD. He will transport via EMS coordinated by the [facility].
== END 2019-02-19 16:15 | DRG 280 ==
LOC: ER 16:45 → ICU 19:01
PROVIDERS: Admitting Provider Internal Medicine; Emergency Provider Emergency Medicine; PCP Family Medicine; Visit Provider Internal Medicine
DX: I21.4 Non-ST elevation (NSTEMI) myocardial infarction (principal); I50.33 Acute on chronic diastolic (congestive) heart failure; N17.9 Acute kidney failure, unspecified; I48.92 Unspecified atrial flutter; J20.1 Acute bronchitis due to Hemophilus influenzae; N18.9 Chronic kidney disease, unspecified; I48.91 Unspecified atrial fibrillation; G47.33 Obstructive sleep apnea (adult) (pediatric); I25.10 Atherosclerotic heart disease of native coronary artery without angina pectoris; Z95.1 Presence of aortocoronary bypass graft; I27.20 Pulmonary hypertension, unspecified; Z75.1 Person awaiting admission to adequate facility elsewhere; Z88.8 Allergy status to other drugs, medicaments and biological substances; R94.39 Abnormal result of other cardiovascular function study; E03.9 Hypothyroidism, unspecified; E78.5 Hyperlipidemia, unspecified
CPT/HCPCS: 36410; 36415; 80048; 80053; 84145; 85027; 87040; 87077; 93005; 99223; 99239; 99285; 71045; 71046; 81003; 83735; 83880; 84484; 85025; 85610; 85730; 87070; 87205; 93010; 94640; 94660; 99284; J1940; J1941; J2543; J7614; J7620

== ENCOUNTER 2019-03-03 10:37 | Outpatient (CLI) | payer MEDICARE, OTHER, SELFPAY ==
[2019-03-03 13:13] LABS: ALT 41 U/L (16-63); AST 31 U/L (15-37); Albumin 3.1 g/dL (3.4-5.0); Alkaline Phosphatase 81 U/L (46-116); Anion Gap 7.4 mmol/L (3-11); BUN 31 mg/dL (7-18); Bilirubin, Total 0.4 mg/dL (0.2-1.0); CO2 28.6 mmol/L (21.0-32.0); Calcium 8.7 mg/dL (8.5-10.1); Chloride 105 mmol/L (98-107); Estimated GFR 39.18 (mL/min/1.73m2); Glucose 116 mg/dL (70-100); NT-proBNP 1784 pg/mL; Sodium 141 mmol/L (136-145); Total Protein 7.1 g/dL (6.4-8.2)
== END 2019-03-03 10:57 ==
PROVIDERS: PCP Family Medicine; Visit Provider Internal Medicine
DX: I50.9 Heart failure, unspecified (principal)
CPT/HCPCS: 36415; 80053; 83880

== ENCOUNTER 2019-03-05 04:39 | Outpatient (CLI) | payer MEDICARE, OTHER, SELFPAY | END 2019-03-05 04:59 | PROVIDERS: PCP Family Medicine; Visit Provider Internal Medicine | DX: R00.1 Bradycardia, unspecified (principal); I48.91 Unspecified atrial fibrillation | CPT/HCPCS: 93225 ==

== ENCOUNTER 2019-03-08 09:35 | Outpatient (CLI) | payer MEDICARE, OTHER, SELFPAY ==
--- NOTE | 2019-03-08 11:03 | W.HOLTRPT ---
Date of service: 03/08/19 Time of Service: 11:04 Holter Monitor Report Holter Monitor Note: This is a 48-hour Holter monitor ordered for indication of bradycardia. Was in atrial fibrillation for the entirety of the recording. ?The peak heart rate was 106 bpm, minimum heart rate was 47 bpm. ?There were occasional (3.7%) single ventricular ectopic beats. ?There were no pauses greater than 3 seconds or no significant episodes of high degree heart block.
== END 2019-03-08 09:55 ==
PROVIDERS: PCP Family Medicine; Visit Provider Family Medicine
DX: R00.1 Bradycardia, unspecified (principal); I48.91 Unspecified atrial fibrillation
CPT/HCPCS: 93227; 93226

== ENCOUNTER 2019-03-10 01:08 | Outpatient (CLI) | payer MEDICARE, OTHER, SELFPAY ==
[2019-03-10 13:28] LABS: Abs Immature Grans 0.01 k/cumm (0.0-0.09); Absolute Basophil Count 0.03 k/cumm (0.0-0.2); Absolute Lymphocyte Count 0.73 k/cumm (1.2-3.4); Absolute Monocyte Count 0.75 k/cumm (0.11-0.7); Absolute Neutrophil Count 3.69 k/cumm (1.2-6.7); Basophils % 0.6; Eosinophils % 3.7; HCT 38.7 % (40.0-50.0); HGB 11.8 g/dL (13.5-17.5); Immature Grans % 0.2; Lymphocytes % 13.5; Mean Corp. HGB Concentration 30.5 g/dL (32.0-36.0); Mean Corpuscular Hemoglobin 29.6 pg (27.0-33.0); Mean Platelet Volume 9.9 fL (8.0-11.0); Monocytes % 13.9; Neutrophils % 68.1; Platelet Count 290 x1000/uL (130-400); RBC 3.99 m/cumm (4.50-6.00); RBC Distribution Width 14.5 % (11.8-14.1); White Blood Cell Count 5.41 k/cumm (4.4-10.8)
[2019-03-10 14:49] LABS: ALT 30 U/L (16-63); AST 21 U/L (15-37); Albumin 3.3 g/dL (3.4-5.0); Alkaline Phosphatase 69 U/L (46-116); Anion Gap 7.2 mmol/L (3-11); BUN 26 mg/dL (7-18); Bilirubin, Total 0.5 mg/dL (0.2-1.0); CO2 25.8 mmol/L (21.0-32.0); CREATININE 1.36 mg/dL (0.70-1.30); Calcium 8.8 mg/dL (8.5-10.1); Chloride 107 mmol/L (98-107); Estimated GFR 50.68 (mL/min/1.73m2); Glucose 112 mg/dL (70-100); NT-proBNP 2353 pg/mL; Potassium 4.9 mmol/L (3.5-5.1); Sodium 140 mmol/L (136-145)
== END 2019-03-10 01:28 ==
PROVIDERS: PCP Family Medicine; Visit Provider Internal Medicine
DX: I50.9 Heart failure, unspecified (principal); R50.9 Fever, unspecified
CPT/HCPCS: 36415; 80053; 83880; 85025

== ENCOUNTER 2019-03-15 09:45 | Outpatient (CLI) | payer MEDICARE, OTHER, SELFPAY ==
[2019-03-15 12:35] LABS: ALT 22 U/L (16-63); AST 19 U/L (15-37); Albumin 3.5 g/dL (3.4-5.0); Alkaline Phosphatase 65 U/L (46-116); Anion Gap 9.6 mmol/L (3-11); BUN 31 mg/dL (7-18); Bilirubin, Total 0.6 mg/dL (0.2-1.0); CO2 28.4 mmol/L (21.0-32.0); CREATININE 1.57 mg/dL (0.70-1.30); Calcium 8.8 mg/dL (8.5-10.1); Chloride 105 mmol/L (98-107); Estimated GFR 42.94 (mL/min/1.73m2); Glucose 114 mg/dL (70-100); NT-proBNP 1162 pg/mL; Potassium 4.5 mmol/L (3.5-5.1); Sodium 143 mmol/L (136-145); Total Protein 7.3 g/dL (6.4-8.2)
== END 2019-03-15 10:05 ==
PROVIDERS: PCP Family Medicine; Visit Provider Internal Medicine
DX: I50.9 Heart failure, unspecified (principal)
CPT/HCPCS: 36415; 80053; 83880

== ENCOUNTER 2019-03-16 08:53 | Outpatient (CLI) | payer MEDICARE, OTHER, SELFPAY | END 2019-03-16 09:13 | PROVIDERS: PCP Family Medicine; Visit Provider Internal Medicine Cardiovascular Disease | DX: I25.10 Atherosclerotic heart disease of native coronary artery without angina pectoris (principal); I48.91 Unspecified atrial fibrillation; I48.92 Unspecified atrial flutter; N18.9 Chronic kidney disease, unspecified; I21.4 Non-ST elevation (NSTEMI) myocardial infarction; I13.0 Hypertensive heart and chronic kidney disease with heart failure and stage 1 through stage 4 chronic kidney disease, or unspecified chronic kidney disease; I50.9 Heart failure, unspecified; Z95.5 Presence of coronary angioplasty implant and graft | CPT/HCPCS: 99205; 99215; 93005; 93010; 93225 ==

== ENCOUNTER → 2019-03-17 09:45 | Outpatient (BNVA) | payer MEDICARE, OTHER, SELFPAY | PROVIDERS: PCP Family Medicine; Referring Provider Family Medicine; Visit Provider Psychiatry & Neurology Neurology | DX: G62.9 Polyneuropathy, unspecified (principal); R41.3 Other amnesia | CPT/HCPCS: 99215 ==

== ENCOUNTER 2019-03-19 09:21 | Outpatient (CLI) | payer MEDICARE, OTHER, SELFPAY ==
[2019-03-19 13:30] LABS: Folate 16.2 ng/mL (8.6-20.0); Vitamin B12 408 pg/mL (193-986)
[2019-03-22 16:15] LABS: Albumin 55.2 % (55.8-66.1)
== END 2019-03-19 09:41 ==
PROVIDERS: PCP Family Medicine; Visit Provider Psychiatry & Neurology Neurology
DX: G62.9 Polyneuropathy, unspecified (principal)
CPT/HCPCS: 36415; 82607; 82746; 84165

== ENCOUNTER 2019-04-08 01:25 | Outpatient (CLI) | payer MEDICARE, OTHER, SELFPAY ==
[2019-04-08 13:04] LABS: Iron 61 ug/dL (65-175); Total Iron Binding Capacity 355 ug/dL (250-450); Transferrin Sat 17 % (20-55)
[2019-04-08 13:16] LABS: ALT 29 U/L (16-63); AST 33 U/L (15-37); Albumin 3.6 g/dL (3.4-5.0); Alkaline Phosphatase 59 U/L (46-116); Anion Gap 10.8 mmol/L (3-11); BUN 28 mg/dL (7-18); Bilirubin, Total 0.5 mg/dL (0.2-1.0); CO2 26.2 mmol/L (21.0-32.0); CREATININE 1.45 mg/dL (0.70-1.30); Calcium 8.9 mg/dL (8.5-10.1); Chloride 105 mmol/L (98-107); Estimated GFR 47.07 (mL/min/1.73m2); Glucose 116 mg/dL (74-106); Potassium 5.2 mmol/L (3.5-5.1); Sodium 142 mmol/L (136-145); TSH (W/Ref FT4) 0.41 uIU/mL (0.36-3.74)
== END 2019-04-08 01:45 ==
PROVIDERS: PCP Family Medicine; Visit Provider Internal Medicine
DX: D64.9 Anemia, unspecified (principal); I10 Essential (primary) hypertension; I50.9 Heart failure, unspecified; M79.602 Pain in left arm; M21.822 Other specified acquired deformities of left upper arm
CPT/HCPCS: 36415; 80053; 73090; 83540; 83550; 84443

== ENCOUNTER 2019-04-08 06:59 | Outpatient (CLI) | payer MEDICARE, OTHER, SELFPAY ==
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
== END 2019-04-08 07:19 ==
PROVIDERS: PCP Family Medicine; Visit Provider Internal Medicine
DX: M79.602 Pain in left arm (principal); M21.822 Other specified acquired deformities of left upper arm
CPT/HCPCS: 73090

== ENCOUNTER → 2019-04-27 09:53 | Outpatient (BNVA) | payer MEDICARE, OTHER, SELFPAY | PROVIDERS: PCP Family Medicine; Referring Provider Family Medicine; Visit Provider Internal Medicine Cardiovascular Disease | DX: I21.4 Non-ST elevation (NSTEMI) myocardial infarction (principal); I48.91 Unspecified atrial fibrillation; I48.92 Unspecified atrial flutter; I50.33 Acute on chronic diastolic (congestive) heart failure; I13.0 Hypertensive heart and chronic kidney disease with heart failure and stage 1 through stage 4 chronic kidney disease, or unspecified chronic kidney disease; N18.9 Chronic kidney disease, unspecified; I27.20 Pulmonary hypertension, unspecified | CPT/HCPCS: 99214 ==

== ENCOUNTER 2019-05-12 00:51 | Outpatient (CLI) | payer MEDICARE, OTHER, SELFPAY ==
[2019-05-12 12:03] LABS: ALT 14 U/L (16-63); AST 21 U/L (15-37); Albumin 3.7 g/dL (3.4-5.0); Alkaline Phosphatase 51 U/L (46-116); Anion Gap 11.5 mmol/L (3-11); BUN 35 mg/dL (7-18); Bilirubin, Total 0.6 mg/dL (0.2-1.0); CO2 25.5 mmol/L (21.0-32.0); CREATININE 1.47 mg/dL (0.70-1.30); Chloride 105 mmol/L (98-107); Estimated GFR 46.33 (mL/min/1.73m2); Glucose 110 mg/dL (74-106); Potassium 4.5 mmol/L (3.5-5.1); Sodium 142 mmol/L (136-145); Total Protein 7.2 g/dL (6.4-8.2)
== END 2019-05-12 01:11 ==
PROVIDERS: PCP Family Medicine; Visit Provider Internal Medicine
DX: E87.5 Hyperkalemia (principal); N18.9 Chronic kidney disease, unspecified
CPT/HCPCS: 36415; 80053

== ENCOUNTER → 2019-05-17 10:38 | Outpatient (BNVA) | payer MEDICARE, OTHER, SELFPAY | PROVIDERS: PCP Family Medicine; Referring Provider Internal Medicine; Visit Provider Student in an Organized Health Care Education/Training Program | DX: M79.602 Pain in left arm (principal); R93.6 Abnormal findings on diagnostic imaging of limbs | CPT/HCPCS: 99213 ==

== ENCOUNTER 2019-05-19 01:32 | Outpatient (CLI) | payer MEDICARE, OTHER, SELFPAY ==
--- NOTE | 2019-05-19 14:03 | DI.US_ITS ---
APPROVED REPORT EXAM: Comprehensive 2D, Doppler, and color-flow Echocardiogram Patient Location: Out-Patient Chief Librarian Circulation Department: Abiola Robles RDCS (AE) Rhythm: Bradycardia Indications: ASHD (ateriosclerotic heart disease) of [place] coronary artery without angina. i25.10 CAD Conclusion Left Ventricle : Left ventricle is top normal in size Left ventricular systolic function is mildly de creased. Mild left ventricular hypertrophy. There is normal LV segmental wall motion. There is evide nce of elevated filling pressures. LVEF is estimated to be 45-55%. Right Ventricle : Right ventricle is dilated. Right ventricular function is mild to moderately reduce d. Atria : Left atrium is severly dilated. Right atrium is moderately dilated. Aortic Valve : Aortic valve is trileaflet. There is mild annular sclerosis. No aortic regurgitation i s noted. Mitral Valve : Mitral valve leaflets are mild to moderately thickened. Moderate to severe mitral regu rgitation, directed eccentrically posterioer. Tricuspid Valve : The tricuspid valve leaflets are mildly thickened but open well. Severe tricuspid r egurgitation. Great Vessels : The aortic root is normal in size. 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 IVC appear s top normal in size and collapses >50% with inspiration. Estimated RVSP is 55-60 mmHg. Compared to echocardiogram dated 01/29/2019: There is no significant change as estimated pulmonary pre ssures remain elevated. Wall motion Left Ventricle Left ventricle is top normal in size Left ventricular systolic function is mildly decreased. Mild lef t ventricular hypertrophy. There is normal LV segmental wall motion. There is evidence of elevated fi lling pressures. LVEF is estimated to be 45-55%. Right Ventricle Right ventricle is dilated. Right ventricular function is mild to moderately reduced. Atria Left atrium is severly dilated. Right atrium is moderately dilated. Aortic Valve Aortic valve is trileaflet. There is mild annular sclerosis. Mild aortic stenosis. No aortic regurgit ation is noted. Mitral Valve Mitral valve leaflets are mild to moderately thickened. No evidence of mitral valve stenosis. Moderat e to severe mitral regurgitation, directed eccentrically posterioer. Mild AVML step off. Tricuspid Valve The tricuspid valve leaflets are mildly thickened but open well. Severe tricuspid regurgitation. Pulmonic Valve Pulmonic valve is not well visualized. Mild pulmonic regurgitation. Great Vessels The aortic root is normal in size. 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 IVC appears top normal in size and collapses >50% with inspiration. Estimated RVSP is 55-60 mmHg. Pericardium There is no pericardial effusion. 2D Dimensions IVSd 1.30 cm M: 0.6-1.2 LV EDV A2C 173.3 mL PWd 1.20 cm M: 0.6 - 1.2 LV EDV A4C 128.4 mL LVDd 5.70 cm M: 4.2 - 5.8 LA Volume Index Biplane 52.7 mL/m2 LVDs 4.15 cm M: 2.5 - 4.0 LA Area A4C 34.03 cm2 Aortic Root 3.45 cm M: 3.1 - 3.7 LA Area A2C 30.97 cm2 RVID Base (AP4) 4.77 cm (M/F) 2.5-4.1 EF AP4 54.9 % RA Area A4C 29.99 cm2 EF AP2 46.0 % LVOT 2.15 cm (M/F) 1.5-2.5 EF BP 48.4 % Ascending Aorta 3.88 cm M: 2.6 - 3.4 IVC 2.10 cm LVEF (Teich) 53.0 % TAPSE 1.24 cm (M/F) <1.7 LVEF (Ferrera's) 48.39 % M: 52 - 72 LV Volume 107.64 mL M: 62 - 150 LV Volume Index 44.11 mL/m2 M: 34 - 74 FS 27.65 % LV Diastology MV E' medial 0.074 (>0.07 m/s) E/A Ratio 4.0 LV E/e MED 13.70 (<14) TR Peak Velocity 3.80 m/s MV E' lateral 0.100 (>0.1 m/s) LV E/e LAT 10.15 (<14) LA vol/ BSA A2C s A-L 47.9 mL/m2 LA vol/ BSA A4C s A-L 56.8 mL/m2 Aortic Valve LVOT Area 3.68 cm2 AoV Area Vmax 1.75 cm2 LVOT Vmax 0.79 m/s AoV Area/ BSA (Vmax) 0.72 cm2/m2 LVOT Mean Celio. 0.60 m/s JONEL Mean Celio. 1.78 cm2 LVOT Peak Gr. 2.5 mmHg JONEL Mean Celio. Index 0.73 cm2/m2 LVOT Mean Gr. 1.6 mmHg LVOT VTI 0.176 m AoV Vmax 1.65 (0.5-1.3 m/s) AoV Mean Celio. 1.23 m/s AoV Peak Grad 10.9 mmHg LVOT SV 64.66 mL AoV Mean Grad 6.5 (<5 mmHg) AoV VTI 0.383 (0.18-0.25 m) VTI Ratio 0.46 AoV Area VTI 1.69 (2.5-4.5 cm2) AoV Area/ BSA (VTI) 0.69 cm/m2 Mitral Valve MV E Max Celio. 1.01 (0.4-1.3 m/s) MV Regurg Volume 184.01 mL MV A Velocity 0.25 (0.4-1.3 m/s) MV RF 74.00 % E/A Ratio 3.64 RVOT Peak Gr. 2.45 mmHg MV Decel. Time 195 (160-240 msec) RVOT Mean Gr. 1.20 mmHg MV Mean Gr. 0.3 (<2mmHg) MV PHT 57 msec MVA PHT 3.85 cm2 PV Peak Velocity 1.10 (0.5-1.5 m/s) RVOT Peak Celio. 0.78 m/s RVOT VTI 0.133 m Tricuspid Valve TR P. Gradient 57.6 mmHg TV Regurg Vmax 3.80 m/s RAP Estimate 3.00 mmHg RVSP 60.6 mmHg
== END 2019-05-19 01:52 ==
PROVIDERS: PCP Family Medicine; Visit Provider Internal Medicine Cardiovascular Disease
DX: I25.10 Atherosclerotic heart disease of native coronary artery without angina pectoris (principal); I25.2 Old myocardial infarction; I50.9 Heart failure, unspecified; I36.1 Nonrheumatic tricuspid (valve) insufficiency
CPT/HCPCS: 93306

== ENCOUNTER 2019-05-21 00:58 | Outpatient (CLI) | payer MEDICARE, OTHER, SELFPAY ==
--- NOTE | 2019-05-21 12:05 | DI.MRI_ITS ---
EXAM: MR UPPER EXTREMITY LT WO CLINICAL HISTORY: left radius pain, M79.602 COMPARISON: No exams were available for comparison FINDINGS: MR examination of the forearm was performed according to the usual protocol. Note is made of some ab normal signal in the distal biceps tendon, the examination is not optimized and the possibility of te ndinosis or partial tear of the distal biceps attachment on the radial tuberosity is raised, please c orrelate clinically. Additional evaluation of the elbow could be obtained with dedicated elbow MRI. No bony signal abnormality seen in the region surveyed. No musculotendinous abnormality of mid forea rm. No mass identified. IMPRESSION: Question tendinosis or partial-thickness tendon tear of the distal biceps tendon as described above. If clinically indicated, additional evaluation with MR of the elbow could be considered. No other s ignificant abnormality seen.
== END 2019-05-21 01:18 ==
PROVIDERS: PCP Family Medicine; Visit Provider Physician Assistant
DX: M79.602 Pain in left arm (principal); M75.22 Bicipital tendinitis, left shoulder; S46.212A Strain of muscle, fascia and tendon of other parts of biceps, left arm, initial encounter
CPT/HCPCS: 73218

== ENCOUNTER → 2019-05-24 09:21 | Outpatient (BNVA) | payer MEDICARE, OTHER, SELFPAY | PROVIDERS: PCP Family Medicine; Referring Provider Family Medicine; Visit Provider Student in an Organized Health Care Education/Training Program | DX: M79.602 Pain in left arm (principal); I13.0 Hypertensive heart and chronic kidney disease with heart failure and stage 1 through stage 4 chronic kidney disease, or unspecified chronic kidney disease; I50.9 Heart failure, unspecified; E11.9 Type 2 diabetes mellitus without complications | CPT/HCPCS: 99213 ==

== ENCOUNTER → 2019-06-21 09:39 | Outpatient (BNVA) | payer MEDICARE, OTHER, SELFPAY | PROVIDERS: PCP Family Medicine; Referring Provider Family Medicine; Visit Provider Student in an Organized Health Care Education/Training Program | DX: M79.602 Pain in left arm (principal) | CPT/HCPCS: 99213 ==

== ENCOUNTER → 2019-08-23 13:33 | Outpatient (BNVA) | payer MEDICARE, OTHER, SELFPAY | PROVIDERS: PCP Family Medicine; Referring Provider Family Medicine; Visit Provider Internal Medicine Cardiovascular Disease | DX: I25.10 Atherosclerotic heart disease of native coronary artery without angina pectoris (principal); I21.4 Non-ST elevation (NSTEMI) myocardial infarction; G47.33 Obstructive sleep apnea (adult) (pediatric); I50.9 Heart failure, unspecified; I27.20 Pulmonary hypertension, unspecified; N18.9 Chronic kidney disease, unspecified; I11.0 Hypertensive heart disease with heart failure | CPT/HCPCS: 99214; 99443 ==

== ENCOUNTER → 2019-09-08 09:13 | Outpatient (BNVA) | payer MEDICARE, OTHER, SELFPAY | PROVIDERS: PCP Family Medicine; Referring Provider Family Medicine; Visit Provider Nurse Practitioner Adult Health | DX: G63 Polyneuropathy in diseases classified elsewhere (principal); G31.84 Mild cognitive impairment of uncertain or unknown etiology; I13.0 Hypertensive heart and chronic kidney disease with heart failure and stage 1 through stage 4 chronic kidney disease, or unspecified chronic kidney disease; I50.9 Heart failure, unspecified; N18.9 Chronic kidney disease, unspecified | CPT/HCPCS: 99213 ==

== ENCOUNTER 2019-10-29 14:42 | Emergency (ER) | payer MEDICARE, OTHER, SELFPAY ==
[2019-10-29 14:50] VITALS: BP 133/46; PULSE 75; RESP 16; TEMP 36.6; O2SAT 91
--- NOTE | 2019-10-29 15:00 | DI.RAD_ITS ---
EXAM: XR CHEST 2V PA LATERAL CLINICAL HISTORY: Shortness of breath TECHNIQUE: 2D digital imaging was performed. COMPARISON: CR XR PORTABLE CHEST AP from 02/18/2019 FINDINGS: The heart is enlarged, unchanged. There is pulmonary vascular congestion. No infiltrate or effusion is seen. There are sternal wires. Degenerative changes are noted in the thoracic spine. IMPRESSION: Cardiomegaly and pulmonary vascular prominence.
[2019-10-29 15:03] VITALS: RESP 18
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
[2019-10-29 15:37] LABS: Abs Immature Grans 0.03 k/cumm (0.0-0.09); Absolute Basophil Count 0.02 k/cumm (0.0-0.2); Absolute Eosinophil Count 0.37 k/cumm (0.0-0.7); Absolute Lymphocyte Count 1.27 k/cumm (1.2-3.4); Absolute Monocyte Count 0.69 k/cumm (0.11-0.7); Absolute Neutrophil Count 5.65 k/cumm (1.2-6.7); Basophils % 0.2; Eosinophils % 4.6; Immature Grans % 0.4 %; Lymphocytes % 15.8; Mean Corp. HGB Concentration 32.4 g/dL (32.0-36.0); Mean Corpuscular Hemoglobin 32.2 pg (27.0-33.0); Mean Corpuscular Volume 99.2 fL (80-95); Mean Platelet Volume 10.3 fL (8.0-11.0); Monocytes % 8.6; Neutrophils % 70.4; Platelet Count 291 x1000/uL (130-400); RBC 3.73 m/cumm (4.50-6.00); RBC Distribution Width 13.4 % (11.8-14.1); White Blood Cell Count 8.03 k/cumm (4.4-10.8)
[2019-10-29 15:58] LABS: ALT 29 U/L (16-63); AST 21 U/L (15-37); Albumin 3.6 g/dL (3.4-5.0); Alkaline Phosphatase 41 U/L (46-116); Anion Gap 9.1 mmol/L (3-11); BUN 45 mg/dL (7-18); Bilirubin, Total 0.6 mg/dL (0.2-1.0); CO2 26.9 mmol/L (21.0-32.0); CREATININE 2.14 mg/dL (0.70-1.30); Calcium 8.9 mg/dL (8.5-10.1); Chloride 103 mmol/L (98-107); Estimated GFR 30.04 (mL/min/1.73m2); Glucose 123 mg/dL (74-106); Magnesium 2.2 mg/dL (1.8-2.4); NT-proBNP 1022 pg/mL (<300); Sodium 139 mmol/L (136-145); Total Protein 7.7 g/dL (6.4-8.2); Troponin I < 0.05 ng/mL (<0.06)
--- NOTE | 2019-10-29 17:00 | DI.VRAD_ITS ---
PROCEDURE INFORMATION: Exam: XR Chest, 2 Views Exam date and time: 10/29/2019 4:22 PM Age: 79 years old Clinical indication: Other: SOB TECHNIQUE: Imaging protocol: XR of the chest Views: 2 views. COMPARISON: CR XR PORTABLE CHEST AP 18/02/2019 10:30 FINDINGS: Lungs: Prominent central pulmonary vasculature with redistribution to the apices. Central peribronchial thickening. Pleural space: Unremarkable. No pleural effusion. No pneumothorax. Heart/Mediastinum: Cardiomegaly. Bones/joints: Sternotomy wires and mediastinal clips are in place. Multilevel degenerative changes of the thoracic and lumbar spine. IMPRESSION: Cardiomegaly. Pulmonary vascular congestion. Dictated and Authenticated by: Lucina Borges MD. Ordering:JENNIFER Henry MD
[2019-10-29] MEDS: Bumetanide 1 MG/4 ML VIAL IVP (17:35)
[2019-10-29 17:40] VITALS: BP 116/56; PULSE 49; RESP 18; TEMP 36.8; O2SAT 95
[2019-10-29 18:04] VITALS: BP 114/68; PULSE 49; RESP 18; TEMP 36.8; O2SAT 98
--- NOTE | 2019-10-29 19:03 | NUR.NOTE ---
REFERRED TO CM FOR FOLLOW UP WITH CARTIOLOGY FOR CHF Nursing Note:
--- NOTE | 2019-11-01 15:36 | PDOC.ERCMPRO ---
- If Service Date Differs Date of service: 11/01/19 Time of Service: 15:36 Care Management Progress Note Nitesh is seen in the ED on 10/29/2019 for congestive heart failure. At the request of ED provider, CM telephones cardiology to schedule an appointment for patient. Lorri from the specialty clinic advises Nitesh already has an appointment scheduled on 11/15/2019 and states that is the soonest he can be seen, as Dr. Ewing is out of the office until then.
== END 2019-10-29 18:07 | disposition home or self-care (01) ==
PROVIDERS: Emergency Provider Emergency Medicine; PCP Family Medicine
DX: I13.0 Hypertensive heart and chronic kidney disease with heart failure and stage 1 through stage 4 chronic kidney disease, or unspecified chronic kidney disease (principal); I50.9 Heart failure, unspecified; N18.9 Chronic kidney disease, unspecified
CPT/HCPCS: 36415; 80053; 93005; 96374; 99285; 71046; 83735; 83880; 84484; 85025; 93010

== ENCOUNTER → 2019-11-15 13:10 | Outpatient (BNVA) | payer MEDICARE, OTHER, SELFPAY | PROVIDERS: PCP Family Medicine; Referring Provider Family Medicine; Visit Provider Internal Medicine Cardiovascular Disease | DX: I27.20 Pulmonary hypertension, unspecified (principal); I13.0 Hypertensive heart and chronic kidney disease with heart failure and stage 1 through stage 4 chronic kidney disease, or unspecified chronic kidney disease; I50.9 Heart failure, unspecified; N18.9 Chronic kidney disease, unspecified; I48.91 Unspecified atrial fibrillation; I48.92 Unspecified atrial flutter | CPT/HCPCS: 99214 ==

== ENCOUNTER 2019-11-16 03:59 | Outpatient (CLI) | payer MEDICARE, OTHER, SELFPAY ==
[2019-11-16 13:04] LABS: ALT 19 U/L (16-63); AST 22 U/L (15-37); Albumin 3.6 g/dL (3.4-5.0); Alkaline Phosphatase 44 U/L (46-116); Anion Gap 8.6 mmol/L (3-11); BUN 39 mg/dL (7-18); Bilirubin, Total 0.6 mg/dL (0.2-1.0); CO2 27.4 mmol/L (21.0-32.0); CREATININE 1.54 mg/dL (0.70-1.30); Calcium 9.3 mg/dL (8.5-10.1); Chloride 104 mmol/L (98-107); Estimated GFR 43.91 (mL/min/1.73m2); Glucose 137 mg/dL (74-106); Potassium 4.4 mmol/L (3.5-5.1); Sodium 140 mmol/L (136-145); Total Protein 7.2 g/dL (6.4-8.2)
== END 2019-11-16 04:19 ==
PROVIDERS: PCP Family Medicine; Visit Provider Internal Medicine Cardiovascular Disease
DX: I27.20 Pulmonary hypertension, unspecified (principal)
CPT/HCPCS: 36415; 80053

== ENCOUNTER → 2020-01-28 11:53 | Outpatient (BNVA) | payer MEDICARE, OTHER, SELFPAY | PROVIDERS: Referring Provider Family Medicine; Visit Provider Internal Medicine Cardiovascular Disease | DX: I21.4 Non-ST elevation (NSTEMI) myocardial infarction (principal); N17.9 Acute kidney failure, unspecified; N18.9 Chronic kidney disease, unspecified; G47.33 Obstructive sleep apnea (adult) (pediatric); I50.30 Unspecified diastolic (congestive) heart failure; I13.0 Hypertensive heart and chronic kidney disease with heart failure and stage 1 through stage 4 chronic kidney disease, or unspecified chronic kidney disease | CPT/HCPCS: 99205; 99215 ==

== ENCOUNTER 2020-01-31 18:22 | Emergency (ER) | payer MEDICARE, OTHER, SELFPAY ==
[2020-01-31] VITALS (16 sets, daily range): BP systolic 97–132; BP diastolic 50–81; PULSE 41–94; RESP 15–26; TEMP 36.2–37.1; O2SAT 92–99
--- NOTE | 2020-01-31 08:00 | RT.EKG_ITS ---
APPROVED REPORT Exam: Resting ECG Patient Location: E HR:56 bpm ECG Measurements Heart Rate 56 AXIS AR [id number] P [id number] QRSd 101 QRS 58 QT 404 T 141 QTc 374 Conclusion Age not entered, assumed to be 51 years old for purpose of ECG interpretation Atrial flutter...A-rate 200 Nonspecific repol abnormality, diffuse leads...ST dep, T flat/neg, ant/lat/inf
--- NOTE | 2020-01-31 18:15 | DI.RAD_ITS ---
EXAM: XR PORTABLE CHEST AP CLINICAL HISTORY: SOB, hx CHF TECHNIQUE: COMPARISON: CR,XR XR CHEST 2V PA LATERAL from 10/29/2019 FINDINGS: Portable AP film was obtained. There is question increased radiodensity over the left lower lung fie ld, however chest CT today showed large epicardial fat pad and no evidence of intrapulmonary consolid ation. Otherwise lungs appear clear. Cardiomegaly noted. IMPRESSION: Cardiomegaly, no evidence of acute process. RADIATION DOSE DELIVERED: Total DLP
--- NOTE | 2020-01-31 18:15 | RT.EKG_ITS ---
APPROVED REPORT Exam: Resting ECG Patient Location: E HR:51 bpm ECG Measurements Heart Rate 51 AXIS MN [id number] P [id number] QRSd 96 QRS 55 QT 374 T 252 QTc 344 Conclusion Atrial fibrillation...? atrial activity Repol abnrm suggests ischemia, anterolateral...ST dep, T neg, I aVL V2-V6. No obvious p waves visible. Afib. No STEMI.
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
[2020-01-31 19:05] LABS: Abs Immature Grans 0.05 10^3/uL (0.0-0.06); Absolute Basophil Count 0.03 10^3/uL (0.0-0.2); Absolute Eosinophil Count 0.46 10^3/uL (0.0-0.7); Absolute Lymphocyte Count 0.93 10^3/uL (1.2-3.4); Absolute Monocyte Count 0.71 10^3/uL (0.1-0.8); Basophils % 0.4; Eosinophils % 6.6; HCT 35.7 % (40.0-50.0); HGB 11.6 g/dL (13.5-17.5); Immature Grans % 0.7; Lymphocytes % 13.3; MCHC 32.5 % (32.0-36.0); MCV 98.6 fL (80-95); Monocytes % 10.2; Neutrophils % 68.8; Nucleated RBC 0 %; Platelet Count 254 10^3/uL (130-400); RBC 3.62 10^6/uL (4.36-5.78); RDW 13.4 % (11.8-14.1); RDW-SD 48.5 fL; WBC 6.98 10^3/uL (4.4-10.8)
[2020-01-31 19:14] LABS: Bilirubin Negative (Negative); Blood Negative (Negative); Clarity Clear (Clear); Glucose Negative (Negative); Ketones Negative (Negative); Leukocyte Esterase Negative (Negative); Nitrite Negative (Negative); Specific Gravity 1.015 (1.005-1.025); Urobilinogen 0.2 EU/dL (Up TO 0.2)
--- NOTE | 2020-01-31 19:15 | DI.CT_ITS ---
EXAM: CT HEAD WO CLINICAL HISTORY: Fall, Headache, on blood thinners TECHNIQUE: COMPARISON: CT CT HEAD WO from 01/30/2019 FINDINGS: Noncontrast cranial CT was performed. There is moderate diffuse cerebral atrophy. There is no evide nce of acute intracranial hemorrhage, mass effect, or midline shift. Hypoplastic partially opacified left maxillary antrum and hypoplastic left mastoid air cells noted. No evidence of acute process. Orbital structures appear intact. IMPRESSION: No evidence of acute intracranial process. RADIATION DOSE DELIVERED: 800.82mGy.cm Total DLP
[2020-01-31 20:10] LABS: ALT 34 U/L (16-63); AST 24 U/L (15-37); Albumin 3.3 g/dL (3.4-5.0); Alkaline Phosphatase 40 U/L (46-116); Anion Gap 9.3 mmol/L (3-11); BUN 38 mg/dL (7-18); Bilirubin, Total 0.5 mg/dL (0.2-1.0); CO2 25.7 mmol/L (21.0-32.0); CREATININE 1.61 mg/dL (0.70-1.30); Chloride 106 mmol/L (98-107); Estimated GFR 41.61 (mL/min/1.73m2); Glucose 98 mg/dL (74-106); Magnesium 1.9 mg/dL (1.8-2.4); NT-proBNP 4188 pg/mL (<300); Potassium 4.2 mmol/L (3.5-5.1); Sodium 141 mmol/L (136-145); Troponin I 0.05 ng/mL (<0.06)
--- NOTE | 2020-01-31 20:11 | DI.VRAD_ITS ---
PROCEDURE INFORMATION: Exam: XR Chest, 1 View Exam date and time: 01/31/2020 7:37 PM Age: 80 years old Clinical indication: Shortness of breath; Patient HX: SOB, HX of chf TECHNIQUE: Imaging protocol: XR of the chest Views: 1 view. COMPARISON: CR XR CHEST 2V PA LATERAL 10/29/2019 4:22 PM FINDINGS: Lungs: Unremarkable. No consolidation. Pleural space: Left pleural effusion. No pneumothorax. Heart/Mediastinum: Cardiomegaly. Bones/joints: Multiple fractured sternotomy wires as seen previously. IMPRESSION: 1. Left pleural effusion. 2. Cardiomegaly. Dictated and Authenticated by: Didier Manzano MD. Ordering:DOLORES Jeter MD
--- NOTE | 2020-01-31 20:15 | DI.CT_ITS ---
EXAM: CT CHEST WO CLINICAL HISTORY: eval Pleural effusion, chf, sob TECHNIQUE: COMPARISON: CT CHEST FOR PULMONARY EMBOLUS from 12/22/2009 FINDINGS: CT examination of the chest was performed contrast administration. Images obtained through the upper abdomen show mild hepatomegaly, question mildly nodular hepatic contour could represent cirrhosis, p lease correlate clinically. Spleen and pancreas are unremarkable as visualized. Adrenals appear nor mal. There is a large left and right epicardial fat pad. Cardiac size within normal limits. Apparent milton or cardiac stents. No mediastinal adenopathy. There are mild peripheral reticular changes in the lungs. No evidence of acute process. No focal co nsolidation or pleural effusion. IMPRESSION: No evidence of acute process. RADIATION DOSE DELIVERED: 917.89mGy.cm Total DLP
--- NOTE | 2020-01-31 20:22 | DI.VRAD_ITS ---
PROCEDURE INFORMATION: Exam: CT Head Without Contrast Exam date and time: 01/31/2020 7:23 PM Age: 80 years old Clinical indication: Pain and injury or trauma; Blunt trauma (contusions or hematomas); Headache not specified; Injury date: 01/31/20; Injury details: Fall, headache, on blood thinners TECHNIQUE: Imaging protocol: Computed tomography of the head without contrast. Radiation optimization: All CT scans at this facility use at least one of these dose optimization techniques: automated exposure control; mA and/or kV adjustment per patient size (includes targeted exams where dose is matched to clinical indication); or iterative reconstruction. COMPARISON: CT HEAD WO 01/30/2019 4:02 PM FINDINGS: Brain: There is mild diffuse cerebral atrophy present, consistent with this patient's age. No hemorrhage. There is mild diffuse heterogeneity of the white matter attenuation, this change is nonspecific but is likely secondary to chronic ischemia within microvascular distributions. No mass effect. Cerebral ventricles: No ventriculomegaly. Bones/joints: Unremarkable. No acute fracture. Paranasal sinuses: Chronic left maxillary sinusitis. No fluid levels. Mastoid air cells: Visualized mastoid air cells are well aerated. Soft tissues: Unremarkable. IMPRESSION: No acute intracranial abnormality. Dictated and Authenticated by: Didier Manzano MD. Ordering:DOLORES Jeter MD
[2020-01-31] MEDS: Normal Saline Flush 10 ML SYR IVP (21:10)
[2020-01-31] MEDS: Furosemide 40 MG/4 ML VIAL IVP (21:10)
--- NOTE | 2020-01-31 21:36 | DI.VRAD_ITS ---
PROCEDURE INFORMATION: Exam: CT Chest Without Contrast Exam date and time: 01/31/2020 8:19 PM Age: 80 years old Clinical indication: Condition or disease; Other: Eval pleural eff; Shortness of breath; Patient HX: Evaluate pleural effusion, chf, SOB TECHNIQUE: Imaging protocol: Computed tomography of the chest without contrast. COMPARISON: CT CHEST PE ABD PELVIS W 01/28/2019 4:50 PM FINDINGS: Lungs: Small nodules in right upper lobe unchanged. Scarring and/or subsegmental atelectasis in lung bases. Hyperinflation of the lungs. Pleural space: No pneumothorax. No pleural effusion. Heart: There are coronary artery calcifications. Status post coronary artery bypass grafting. No pericardial effusion. Mediastinal space: Normal esophagus. Aorta: Ascending aorta dilated to 3.8 cm. Atherosclerosis. Lymph nodes: No adenopathy. Diaphragm: Flattened hemidiaphragms. Liver: Subtle lobulated contour of liver.There is diffuse decrease in hepatic parenchymal density, consistent with mild fatty infiltration. Bones/joints: Healed median sternotomy.The spine demonstrates moderate degenerative changes at multiple levels. Soft tissues: Unremarkable. IMPRESSION: 1. No pleural effusion. 2. CT findings consistent with the presence of COPD. 3. Dilated ascending aorta. 4. Lobulated liver contour as could be seen with cirrhosis. Dictated and Authenticated by: Didier Manzano MD. Ordering:DOLORES Jeter MD
[2020-01-31 22:29] LABS: Troponin I 0.05 ng/mL (<0.06)
== END 2020-01-31 23:20 | disposition home or self-care (01) ==
PROVIDERS: Emergency Provider Registered Nurse Emergency
DX: I13.0 Hypertensive heart and chronic kidney disease with heart failure and stage 1 through stage 4 chronic kidney disease, or unspecified chronic kidney disease (principal); I50.33 Acute on chronic diastolic (congestive) heart failure; N18.9 Chronic kidney disease, unspecified; R09.02 Hypoxemia
CPT/HCPCS: 36415; 71250; 80053; 93005; 96374; 99285; 70450; 71045; 81003; 83735; 83880; 84484; 85025; 93010; J1940

== ENCOUNTER → 2020-04-11 07:28 | Outpatient (BNVA) | payer MEDICARE, OTHER, SELFPAY | PROVIDERS: Referring Provider Family Medicine; Visit Provider Nurse Practitioner Adult Health | DX: G31.84 Mild cognitive impairment of uncertain or unknown etiology (principal); G63 Polyneuropathy in diseases classified elsewhere | CPT/HCPCS: 99213; 99441 ==

== ENCOUNTER → 2020-04-14 10:21 | Outpatient (BNVA) | payer MEDICARE, OTHER, SELFPAY | PROVIDERS: Visit Provider Internal Medicine Cardiovascular Disease | DX: I25.810 Atherosclerosis of coronary artery bypass graft(s) without angina pectoris (principal); I21.4 Non-ST elevation (NSTEMI) myocardial infarction; I13.0 Hypertensive heart and chronic kidney disease with heart failure and stage 1 through stage 4 chronic kidney disease, or unspecified chronic kidney disease; I50.9 Heart failure, unspecified; N18.9 Chronic kidney disease, unspecified | CPT/HCPCS: 99214 ==

== ENCOUNTER 2020-05-23 16:24 | Emergency (ER) | payer MEDICARE, OTHER, SELFPAY ==
[2020-05-23] VITALS (31 sets, daily range): BP systolic 118–140; BP diastolic 61–77; PULSE 60–72; RESP 13–24; TEMP 36.5; O2SAT 92–98
--- NOTE | 2020-05-23 16:15 | RT.EKG_ITS ---
APPROVED REPORT Exam: Resting ECG Patient Location: E HR:67 bpm ECG Measurements Heart Rate 67 AXIS GA 62 P 256 QRSd 106 QRS 29 QT 594 T 153 QTc 628 Conclusion Ectopic atrial rhythm...abnormal P axis, normal rate Repol abnrm suggests ischemia, diffuse leads...ST-T neg, ant/lat/inf ST elevation, consider lateral injury...ST >0.10mV, I aVL V5 V6 Prolonged QT interval...QTc >500mS Probable a flutter with nonspecific ST changes No STEMI
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
[2020-05-23 16:54] LABS: Abs Immature Grans 0.03 10^3/uL (0.0-0.06); Absolute Basophil Count 0.04 10^3/uL (0.0-0.2); Absolute Eosinophil Count 0.34 10^3/uL (0.0-0.7); Absolute Lymphocyte Count 0.86 10^3/uL (1.2-3.4); Absolute Monocyte Count 0.77 10^3/uL (0.1-0.8); Absolute Neutrophil Count 6.91 10^3/uL (1.2-6.7); Basophils % 0.4; Eosinophils % 3.8; HGB 11.8 g/dL (13.5-17.5); Immature Grans % 0.3; Lymphocytes % 9.6; MCH 31.8 pg (27.0-33.0); MCHC 32.8 % (32.0-36.0); MPV 9.8 fL (8.0-11.0); Monocytes % 8.6; Neutrophils % 77.3; Nucleated RBC 0 %; Platelet Count 279 10^3/uL (130-400); RBC 3.71 10^6/uL (4.36-5.78); RDW 13.8 % (11.8-14.1); RDW-SD 49.1 fL; WBC 8.95 10^3/uL (4.4-10.8)
[2020-05-23 17:12] LABS: ALT 28 U/L (16-63); AST 25 U/L (15-37); Albumin 3.5 g/dL (3.4-5.0); Alkaline Phosphatase 47 U/L (46-116); Anion Gap 7.6 mmol/L (3-11); BUN 32 mg/dL (7-18); Bilirubin, Total 0.5 mg/dL (0.2-1.0); CO2 26.4 mmol/L (21.0-32.0); CREATININE 1.78 mg/dL (0.70-1.30); Chloride 103 mmol/L (98-107); Estimated GFR 37.05 (mL/min/1.73m2); Glucose 121 mg/dL (74-106); Magnesium 1.8 mg/dL (1.8-2.4); Potassium 3.8 mmol/L (3.5-5.1); Sodium 137 mmol/L (136-145); Total Protein 7.6 g/dL (6.4-8.2)
[2020-05-23 19:21] LABS: C Diff PCR Negative (Negative)
[2020-05-23] MEDS: Ciprofloxacin 500 MG TAB PO (20:07)
[2020-05-25 10:45] LABS: Campylobacter PCR Negative (Negative); Salmonella PCR Negative (Negative); Shiga Toxin PCR Negative (Negative); Shigella/Enteroinvasive Ecoli Negative (Negative)
== END 2020-05-23 20:10 | disposition home or self-care (01) ==
PROVIDERS: Emergency Provider Emergency Medicine
DX: R19.7 Diarrhea, unspecified (principal); R15.9 Full incontinence of feces; I12.9 Hypertensive chronic kidney disease with stage 1 through stage 4 chronic kidney disease, or unspecified chronic kidney disease; N18.9 Chronic kidney disease, unspecified
CPT/HCPCS: 36415; 80053; 87493; 87505; 93005; 99284; 83630; 83735; 85025; 87177; 93010; 99285

== ENCOUNTER 2020-05-25 03:00 | Outpatient (CLI) | payer MEDICARE, OTHER, SELFPAY ==
[2020-05-25 09:15] LABS: Anion Gap 7.9 mmol/L (3-11); BUN 30 mg/dL (7-18); CO2 28.1 mmol/L (21.0-32.0); CREATININE 1.78 mg/dL (0.70-1.30); Calcium 8.9 mg/dL (8.5-10.1); Chloride 105 mmol/L (98-107); Estimated GFR 37.05 (mL/min/1.73m2); Glucose 118 mg/dL (74-106); Potassium 3.7 mmol/L (3.5-5.1); Sodium 141 mmol/L (136-145)
== END 2020-05-25 03:20 ==
DX: R10.9 Unspecified abdominal pain (principal); R19.7 Diarrhea, unspecified
CPT/HCPCS: 36415; 80048

== ENCOUNTER → 2020-07-20 10:31 | Outpatient (BNVA) | payer MEDICARE, OTHER, SELFPAY | PROVIDERS: Visit Provider Internal Medicine Cardiovascular Disease | DX: I25.810 Atherosclerosis of coronary artery bypass graft(s) without angina pectoris (principal); I50.9 Heart failure, unspecified; I13.0 Hypertensive heart and chronic kidney disease with heart failure and stage 1 through stage 4 chronic kidney disease, or unspecified chronic kidney disease; N18.9 Chronic kidney disease, unspecified; I48.0 Paroxysmal atrial fibrillation; N39.41 Urge incontinence; I27.20 Pulmonary hypertension, unspecified | CPT/HCPCS: 99214 ==

== ENCOUNTER → 2020-07-27 10:53 | Outpatient (BNVA) | payer MEDICARE, OTHER, SELFPAY | PROVIDERS: Referring Provider Internal Medicine Cardiovascular Disease; Visit Provider Urology | DX: N39.41 Urge incontinence (principal) | CPT/HCPCS: 81003; 99204; 99214 ==

== ENCOUNTER → 2020-08-25 07:54 | Outpatient (BNVA) | payer MEDICARE, OTHER, SELFPAY | PROVIDERS: Visit Provider Urology | DX: N39.41 Urge incontinence (principal) | CPT/HCPCS: 99213; 99214 ==

== ENCOUNTER → 2020-10-17 10:38 | Outpatient (BNVA) | payer MEDICARE, OTHER, SELFPAY | PROVIDERS: Visit Provider Nurse Practitioner Adult Health | DX: G31.84 Mild cognitive impairment of uncertain or unknown etiology (principal); F32.9 Major depressive disorder, single episode, unspecified; E11.42 Type 2 diabetes mellitus with diabetic polyneuropathy; R51.9 Headache, unspecified | CPT/HCPCS: 99213; 99214 ==

== ENCOUNTER 2020-10-21 17:50 | Emergency (ER) | payer MEDICARE, OTHER, SELFPAY ==
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
[2020-10-21 17:56] VITALS: BP 126/52; PULSE 61; RESP 18; TEMP 36.6; O2SAT 92
[2020-10-21] MEDS: predniSONE 20 MG TAB 60 MG PO (18:22)
[2020-10-21] MEDS: HYDROcodone 5/Acetaminophen 325 TAB PO (18:23)
[2020-10-21] MEDS: diazePAM 5 MG TAB PO (18:23)
[2020-10-21 18:53] VITALS: BP 124/49; PULSE 56; RESP 16; O2SAT 93
== END 2020-10-21 18:55 | disposition home or self-care (01) ==
PROVIDERS: Emergency Provider Physician Assistant
DX: M54.5 Low back pain (principal); G89.29 Other chronic pain
CPT/HCPCS: 99283; J7512

== ENCOUNTER → 2020-10-23 10:06 | Outpatient (BNVA) | payer MEDICARE, OTHER, SELFPAY | PROVIDERS: Visit Provider Internal Medicine Cardiovascular Disease | DX: I95.1 Orthostatic hypotension (principal); I25.810 Atherosclerosis of coronary artery bypass graft(s) without angina pectoris; G47.33 Obstructive sleep apnea (adult) (pediatric); I27.20 Pulmonary hypertension, unspecified; N18.9 Chronic kidney disease, unspecified; I13.0 Hypertensive heart and chronic kidney disease with heart failure and stage 1 through stage 4 chronic kidney disease, or unspecified chronic kidney disease; I50.9 Heart failure, unspecified; N39.41 Urge incontinence; Z79.899 Other long term (current) drug therapy | CPT/HCPCS: 99214 ==

== ENCOUNTER → 2020-11-23 09:51 | Outpatient (BNVA) | payer MEDICARE, OTHER, SELFPAY | PROVIDERS: Visit Provider Internal Medicine Cardiovascular Disease | DX: I25.810 Atherosclerosis of coronary artery bypass graft(s) without angina pectoris (principal); I50.9 Heart failure, unspecified; I21.4 Non-ST elevation (NSTEMI) myocardial infarction; G47.33 Obstructive sleep apnea (adult) (pediatric); I27.20 Pulmonary hypertension, unspecified; N18.9 Chronic kidney disease, unspecified; I13.0 Hypertensive heart and chronic kidney disease with heart failure and stage 1 through stage 4 chronic kidney disease, or unspecified chronic kidney disease | CPT/HCPCS: 99214 ==

== ENCOUNTER 2020-11-28 04:00 | Outpatient (CLI) | payer MEDICARE, OTHER, SELFPAY ==
[2020-11-28 09:35] LABS: ALT 25 U/L (16-63); AST 24 U/L (15-37); Albumin 4.1 g/dL (3.4-5.0); Alkaline Phosphatase 42 U/L (46-116); Anion Gap 13.4 mmol/L (3-11); BUN 54 mg/dL (7-18); Bilirubin, Total 0.7 mg/dL (0.2-1.0); CO2 27.6 mmol/L (21.0-32.0); CREATININE 2.5 mg/dL (0.70-1.30); Calcium 9.4 mg/dL (8.5-10.1); Calculated LDL 105 mg/dL (<100); Chloride 102 mmol/L (98-107); Cholesterol 202 mg/dL (<200); Estimated GFR 25.04 (mL/min/1.73m2); Glucose 127 mg/dL (74-106); HDL Cholesterol 35 mg/dL (40-60); Potassium 3.8 mmol/L (3.5-5.1); Sodium 143 mmol/L (136-145); TSH (W/Ref FT4) 4.06 uIU/mL (0.36-3.74); Total Protein 7.6 g/dL (6.4-8.2); Triglyceride 313 mg/dL (<150)
[2020-11-28 09:54] LABS: FREE T4 1.11 ng/dL (0.76-1.46)
== END 2020-11-28 04:01 | disposition home or self-care (01) ==
LOC: LBO 04:00
DX: I10 Essential (primary) hypertension (principal); E03.9 Hypothyroidism, unspecified; I50.9 Heart failure, unspecified; G47.00 Insomnia, unspecified
CPT/HCPCS: 36415; 80053; 80061; 84439; 84443

== ENCOUNTER 2020-11-30 16:22 | Emergency (ER) | payer MEDICARE, OTHER, SELFPAY ==
[2020-11-30 16:35] VITALS: BP 113/61; PULSE 65; RESP 16; TEMP 36.7; O2SAT 96
--- NOTE | 2020-11-30 17:00 | DI.RAD_ITS ---
Exam(s) XR LUMBAR SPINE COMPLETE EXAM: XR LUMBAR SPINE COMPLETE CLINICAL HISTORY: Low back pain TECHNIQUE: COMPARISON: No exams were available for comparison FINDINGS: Six views were obtained. The intervertebral disc spaces are fairly well maintained. There is no gerber dence of compression fracture. There are moderate hypertrophic facet degenerative changes and endpla te hypertrophic degenerative changes throughout the lumbar region. IMPRESSION: Degenerative changes as described above. No evidence of acute fracture. RADIATION DOSE DELIVERED: Total DLP
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
--- NOTE | 2020-11-30 18:38 | DI.VRAD_ITS ---
PROCEDURE INFORMATION: Exam: XR Lumbosacral Spine Exam date and time: 11/30/2020 5:02 PM Age: 80 years old Clinical indication: Low back pain TECHNIQUE: Imaging protocol: XR of the lumbosacral spine. Views: 4 or 5 views. COMPARISON: CT CHEST PE ABD PELVIS W 01/28/2019 4:50 PM FINDINGS: Bones/joints: There is normal alignment of the lumbar spine. The vertebral body heights is preserved. No evidence of compression fracture. Multilevel degenerative disc disease with anterior osteophyte formation and disc bulging. Soft tissues: Unremarkable. Vasculature: The vasculature demonstrates diffuse marked atherosclerotic calcification. IMPRESSION: 1. No evidence of acute fracture. 2. Multilevel degenerative disc disease with anterior osteophyte formation and disc bulging. Dictated and Authenticated by: Jim Jarrett MD. Ordering:DOLORES Jeter MD
[2020-11-30 18:41] VITALS: BP 120/55; PULSE 64; RESP 16; O2SAT 96
[2020-11-30] MEDS: predniSONE 20 MG TAB 60 MG PO (18:42)
[2020-11-30] MEDS: HYDROcodone 5/Acetaminophen 325 TAB PO (18:42)
[2020-11-30] MEDS: diazePAM 5 MG TAB PO (18:42)
[2020-11-30 19:01] LABS: Bilirubin Negative (Negative); Blood Negative (Negative); Clarity Clear (Clear); Glucose Negative (Negative); Ketones Negative (Negative); Leukocyte Esterase Negative (Negative); Nitrite Negative (Negative); Specific Gravity 1.015 (1.005-1.025); Urobilinogen 0.2 EU/dL (Up TO 0.2); pH 5.5 (5-8)
--- NOTE | 2020-12-01 12:32 | PDOC.ERCMPRO ---
- If Service Date Differs Date of service: 12/01/20 Time of Service: 12:32 Care Management Progress Note Nitesh is seen in the ED for lumbar disc disease with radiculopathy. At the request of ED provider, MEREDITH coordinates a referral to the Pain Clinic and to [facility] to assist Nitesh in obtaining appointments. MEREDITH receives a telephone call from Isabel who advises they do not treat back problems and would be referring Nitesh to the Spine Center at [facility]. She suggested that Nitesh's PCP place the referral to the Spine Center, as this would allow Nitesh to obtain a sooner appointment. This information is relayed to Jazlyn, chronic child care center assistant director at [facility].
== END 2020-11-30 19:12 | disposition home or self-care (01) ==
PROVIDERS: Emergency Provider Registered Nurse Emergency
DX: M54.16 Radiculopathy, lumbar region (principal)
CPT/HCPCS: 36415; 99283; 72110; 81003; J7512

== ENCOUNTER 2020-12-08 02:41 | Outpatient (CLI) | payer MEDICARE, OTHER, SELFPAY ==
[2020-12-08 10:07] LABS: Anion Gap 8.9 mmol/L (3-11); BUN 55 mg/dL (7-18); CO2 29.1 mmol/L (21.0-32.0); CREATININE 1.8 mg/dL (0.70-1.30); Calcium 9.3 mg/dL (8.5-10.1); Chloride 104 mmol/L (98-107); Estimated GFR 36.58 (mL/min/1.73m2); Glucose 117 mg/dL (74-106); Potassium 4.4 mmol/L (3.5-5.1); Sodium 142 mmol/L (136-145)
== END 2020-12-08 02:42 | disposition home or self-care (01) ==
LOC: LBO 02:42
PROVIDERS: Internal Medicine Cardiovascular Disease
DX: N17.9 Acute kidney failure, unspecified (principal); N18.9 Chronic kidney disease, unspecified
CPT/HCPCS: 36415; 80048

== ENCOUNTER 2020-12-16 20:16 | Emergency (ER) | payer MEDICARE, OTHER, SELFPAY ==
[2020-12-16 20:30] VITALS: BP 111/74; PULSE 104; RESP 18; TEMP 37.5; O2SAT 95
--- NOTE | 2020-12-16 20:45 | DI.RAD_ITS ---
Exam(s) XR HAND RT COMPLETE EXAM: XR HAND RT COMPLETE CLINICAL HISTORY: Puncture wound dorsum hand. TECHNIQUE: 2D digital imaging was performed. COMPARISON: No exams were available for comparison FINDINGS: There is no evidence of fracture or dislocation. Dorsal soft tissue swelling is noted. There is a s ubmillimeter foreign body in the soft tissues of the 2nd-index finger. Also calcific density seen of f the medial aspect of the metacarpophalangeal joint of the 3rd-middle finger. IMPRESSION: No acute fractures. Soft tissue densities as described above. DATA REPOSITORY: RADIATION DOSE DELIVERED:
--- NOTE | 2020-12-16 20:45 | DI.RAD_ITS ---
Exam(s) XR FOOT RT COMPLETE EXAM: XR FOOT RT COMPLETE CLINICAL HISTORY: Trauma, R/O toe fracture. TECHNIQUE: 2D digital imaging was performed. COMPARISON: No exams were available for comparison FINDINGS: No evidence of acute fracture or dislocation. No diastasis of the Lisfranc joint. There is fusion h ardware across the metatarsophalangeal joint of the great toe and also fusion hardware across the pro ximal interphalangeal joints of the 2nd and 3rd toes with affective fusion at these levels. There is also slight widening of the cortex of the proximal phalanx of the 4th toe which may be healed fractu re site. No acute fractures evident. No osseous lesions nor erosions. No radiographic evidence of osteomyelitis. A single surgical clip is seen in the medial soft tissues just above the ankle. IMPRESSION: DATA REPOSITORY: RADIATION DOSE DELIVERED:
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
[2020-12-16] MEDS: Cephalexin 500 MG CAP PO (21:24)
--- NOTE | 2020-12-16 21:34 | DI.VRAD_ITS ---
PROCEDURE INFORMATION: Exam: XR Right Foot Exam date and time: 12/16/2020 8:51 PM Age: 80 years old Clinical indication: Injury or trauma; Other: Laceration; Toes; Right first toe; Foreign body involvement not specified TECHNIQUE: Imaging protocol: XR Right foot. Views: 3 or more views. COMPARISON: No relevant prior studies available. FINDINGS: Bones/joints: Intramedullary fixating the vastus within the middle phalanx of the 2nd and 3rd toes. Status post internal fixation and osseous fusion of the 1st metatarsal and proximal phalanx of the toe. No evidence of hardware failure. No evidence of acute fracture or dislocation. Soft tissues: No evidence of soft tissue injury. IMPRESSION: 1. No evidence of acute fracture or dislocation. 2. No evidence of soft tissue injury. Dictated and Authenticated by: Jim Jarrett MD. Ordering:DOLORES Jeter MD
[2020-12-16] MEDS: HYDROcodone 5/Acetaminophen 325 TAB PO (21:36)
--- NOTE | 2020-12-16 21:44 | DI.VRAD_ITS ---
PROCEDURE INFORMATION: Exam: XR Right Hand Exam date and time: 12/16/2020 8:51 PM Age: 80 years old Clinical indication: Pain; Hand; Right TECHNIQUE: Imaging protocol: XR Right hand. Views: 3 or more views. COMPARISON: No relevant prior studies available. FINDINGS: Bones/joints: Normal. No evidence of fracture or dislocation. Soft tissues: Normal. IMPRESSION: No acute findings. No significant degenerative changes. Dictated and Authenticated by: Jim Jarrett MD. Ordering:DOLORES Jeter MD
[2020-12-16] MEDS: Cephalexin 500 MG CAP, 2 CAPS/BTL PO (22:01)
[2020-12-16 22:02] VITALS: BP 135/67; PULSE 84; TEMP 37.8; O2SAT 93
== END 2020-12-16 22:10 | disposition home or self-care (01) ==
PROVIDERS: Emergency Provider Registered Nurse Emergency
DX: S61.431A Puncture wound without foreign body of right hand, initial encounter (principal); W26.0XXA Contact with knife, initial encounter; S90.414A Abrasion, right lesser toe(s), initial encounter; W22.8XXA Striking against or struck by other objects, initial encounter
CPT/HCPCS: 99284; 73130; 73630; 99283

== ENCOUNTER 2020-12-18 17:12 | Emergency (ER) | payer MEDICARE, OTHER, SELFPAY ==
[2020-12-18 17:27] VITALS: PULSE 68; TEMP 36.7; O2SAT 98
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
[2020-12-18 18:08] LABS: Lactate 1.2 mmol/L (0.6-1.4)
[2020-12-18 18:10] LABS: Abs Immature Grans 0.05 10^3/uL (0.0-0.06); Absolute Basophil Count 0.03 10^3/uL (0.0-0.2); Absolute Eosinophil Count 0.25 10^3/uL (0.0-0.7); Absolute Lymphocyte Count 0.72 10^3/uL (1.2-3.4); Absolute Monocyte Count 1.02 10^3/uL (0.1-0.8); Absolute Neutrophil Count 7.07 10^3/uL (1.2-6.7); Basophils % 0.3; Eosinophils % 2.7; HCT 34.1 % (40.0-50.0); Immature Grans % 0.5; Lymphocytes % 7.9; MCH 31.7 pg (27.0-33.0); MCHC 32.3 % (32.0-36.0); MCV 98.3 fL (80-95); MPV 9.7 fL (8.0-11.0); Monocytes % 11.2; Neutrophils % 77.4; Nucleated RBC 0 %; Platelet Count 213 10^3/uL (130-400); RBC 3.47 10^6/uL (4.36-5.78); RDW 14.9 % (11.8-14.1); RDW-SD 54.5 fL; WBC 9.14 10^3/uL (4.4-10.8)
[2020-12-18] MEDS: CLINDAMYCIN 600 MG/50 ML BAG 100 MG IVPB (18:20)
[2020-12-18 18:21] LABS: Magnesium 2.1 mg/dL (1.8-2.4)
[2020-12-18 18:24] VITALS: BP 117/57; PULSE 67; RESP 18; TEMP 36.7; O2SAT 96
[2020-12-18 18:25] LABS: ALT 21 U/L (16-63); AST 16 U/L (15-37); Albumin 3.3 g/dL (3.4-5.0); Alkaline Phosphatase 42 U/L (46-116); Anion Gap 10.9 mmol/L (3-11); BUN 46 mg/dL (7-18); Bilirubin, Total 0.8 mg/dL (0.2-1.0); CO2 25.1 mmol/L (21.0-32.0); Calcium 8.7 mg/dL (8.5-10.1); Chloride 103 mmol/L (98-107); Estimated GFR 32.39 (mL/min/1.73m2); Glucose 113 mg/dL (74-106); Potassium 4.3 mmol/L (3.5-5.1); Sodium 139 mmol/L (136-145); Total Protein 7.1 g/dL (6.4-8.2)
[2020-12-18 19:20] VITALS: BP 116/53; PULSE 66; RESP 18; O2SAT 96
--- NOTE | 2020-12-19 16:52 | NUR.NOTE ---
1652 patient notified of positive blood culture result. Patient denies fever or chills. Patient instructed to take antibiotics as prescribed and report back to ED if he develops any new symptoms.:
--- NOTE | 2020-12-21 15:58 | W.ED.FU ---
I received blood culture that was drawn 12/18/2020 that is growing Staphylococcus Warneri - lab notes probable contaminant. I called and spoke with the patient. He notes that he is feeling much better. Infection of his hand is significantly improved. He has no recurrent fever or chills and feels well. I reviewed results with the patient. I encouraged him to continue to take his antibiotics as prescribed to be sure to complete the full course. I encouraged him to return to the emergency department immediately for any worsening or new concerning symptoms and specifically noted need to be seen immediately should he develop a recurrent fever or chills. He has scheduled follow-up with his primary care physician for next week and I encouraged him to keep this follow-up appointment.
== END 2020-12-18 19:20 | disposition home or self-care (01) ==
PROVIDERS: Emergency Provider Registered Nurse Emergency
DX: S61.431D Puncture wound without foreign body of right hand, subsequent encounter (principal); L03.113 Cellulitis of right upper limb; X58.XXXD Exposure to other specified factors, subsequent encounter; R78.81 Bacteremia; B95.7 Other staphylococcus as the cause of diseases classified elsewhere
CPT/HCPCS: 80053; 87040; 87077; 96365; 99284; 83605; 83735; 85025; 87186

== ENCOUNTER → 2021-01-16 10:26 | Outpatient (BNVA) | payer MEDICARE, OTHER, SELFPAY | PROVIDERS: Visit Provider Nurse Practitioner Adult Health | DX: R51.9 Headache, unspecified (principal); G31.84 Mild cognitive impairment of uncertain or unknown etiology; G63 Polyneuropathy in diseases classified elsewhere | CPT/HCPCS: 99213 ==

== ENCOUNTER → 2021-02-01 09:51 | Outpatient (BNVA) | payer MEDICARE, OTHER, SELFPAY | PROVIDERS: Visit Provider Internal Medicine Cardiovascular Disease | DX: I25.10 Atherosclerotic heart disease of native coronary artery without angina pectoris (principal); I48.91 Unspecified atrial fibrillation; I48.92 Unspecified atrial flutter; E78.5 Hyperlipidemia, unspecified; I10 Essential (primary) hypertension | CPT/HCPCS: 99214; 99213 ==